=== PATIENT | male | born 1975 | race Caucasian/White ===

== ENCOUNTER → 2017-10-02 10:46 | Outpatient (CLI) | payer OTHER, SELFPAY ==
[2017-10-02 12:02] LABS: AST(SGOT) 22 U/L (15-37); Alanine Aminotransfer ALT/SGPT 40 U/L (16-61); Albumin, Serum 4.3 g/dL (3.2-5.0); Alkaline Phosphatase 56 U/L (45-117); Bilirubin, Direct 0.29 mg/dL (0.00-0.30); Cholesterol 175 mg/dL (200); Globulin 3.3 g/dL (2.2-4.2); High Density Lipoprotein 50 mg/dL; Protein, Total 7.6 g/dL (6.4-8.2); Triglycerides 163 mg/dL; Very Low Density Lipoprotein 33 mg/dL (5-40)
== END ==
PROVIDERS: Physician Assistant Medical; Family Provider Family Medicine; PCP Family Medicine; Visit Provider Internal Medicine Cardiovascular Disease
DX: E78.5 Hyperlipidemia, unspecified (principal); Z79.899 Other long term (current) drug therapy
CPT/HCPCS: 36415; 80061; 80076

== ENCOUNTER 2018-02-04 09:27 | Emergency (ER) | payer OTHER, SELFPAY ==
[2018-02-04 09:28] VITALS: BP 131/95; PULSE 57; RESP 15; TEMP 37.1; O2SAT 99; BMI 29.1
[2018-02-04 10:06] VITALS: O2SAT 99
--- NOTE | 2018-02-04 10:06 | EKG12_ITS ---
Test Reason : CHEST PAIN Blood Pressure : / mmHG Vent. Rate : 056 BPM Atrial Rate : 056 BPM P-R Int : 154 ms QRS Dur : 088 ms QT Int : 414 ms P-R-T Axes : 040 021 026 degrees QTc Int : 399 ms Sinus bradycardia Possible Inferior infarct , age undetermined Abnormal ECG Confirmed by DILAN KINNEY ([id number]), medical transcription editor CARMEN MATA ([id number]) on 02/10/2018 1:43:19 PM Referred By: Confirmed By:DILAN KINNEY
[2018-02-04 10:25] LABS: Absolute Lymphocyte Count 2.28 X10^3/ul (0.83-4.51); Absolute Neutrophil Count 2.4 X10^3/uL (2.0-7.7); Basophil# 0.04 X10^3/uL; Basophil% 0.7 % (0-1); Eosinophil# 0.33 X10^3/uL; Eosinophils% 5.7 % (0-5); Hematocrit 42.8 % (40-54); Hemoglobin 14.9 g/dl (13.0-16.5); Lymphocyte # 2.28 X10^3/ul (4.0); Lymphocyte % 39.6 % (19-41); Mean Corp Hgb Conc 34.8 g/gl (32-36); Mean Corpuscular Hgb 32.1 pg (27.0-32.0); Mean Corpuscular Volume 92.2 fL (80-94); Mean Platelet Vol. 10.4 fl (6.2-12.0); Monocyte# 0.67 X10^3/uL; Monocyte% 11.6 % (0-10); Neutrophil # 2.43 X10^3/uL (2.7-7.7); Neutrophil % 42.2 % (47-70); Platelet Count 189 K/mm3 (150-450); RBC Distribution Width CV 12.5 % (11.6-14.6); RBC Distribution Width SD 42.1 fl (35.1-43.9); Red Blood Count 4.64 M/mm3 (4.6-6.2); White Blood Count 5.8 K/mm3 (4.4-11.0)
[2018-02-04] MEDS: Aspirin 81 MG TAB.CHEW 324 MG PO (10:25)
[2018-02-04 10:26] LABS: POSITIVE COUNT NO; POSITIVE DIFFERENTIAL NO; POSITIVE MORPHOLOGY NO
--- NOTE | 2018-02-04 10:30 | ED.VISSUMM ---
- ER Visit Summary Date of Service: 02/04/18 Chief Complaint: Chest pain History of Present Illness: The patient is a 42 M presenting with chest pain. Patient had intermittent left-sided chest pain yesterday. This morning he woke up with midsternal pain similar to his previous ME. He states the pain is 3/10. He denies nausea, vomiting, diaphoresis, shortness of breath. He has a history of hypertension, hyperlipidemia, family history of early heart disease. He is not a smoker. He had an ME in 2016 with 2 stents placed. Physical Examination: Vitals are stable. Patient is afebrile. Alert no acute distress. HEENT exam is unremarkable. Neck is supple. Lungs are clear and equal bilaterally. Heart is regular rate and rhythm. Abdomen is soft nontender nondistended. Extremities are unremarkable. Skin is warm and dry. No focal neurologic deficit. Remainder of exam is unremarkable. Emergency Department Course and Treatment: Patient was given aspirin on arrival. EKG is sinus rate of 56, unchanged from previous. CBC, chemistries unremarkable other than creatinine 1.3. Troponin is negative. Chest x-ray shows no acute process. On repeat evaluation, patient is resting comfortably. Discussed with Dr. Layton. He recommends repeat troponin and ordering outpatient stress echo for tomorrow if negative. Delta troponin is negative. Outpatient stress test is ordered. He is given instructions for follow-up. Advised to return to the ED for any worsening complaints. Disposition: Discharge home Impression: Chest pain This note was generated with [employer] dictation software. It may contain incorrect words, spelling, and punctuation that were not noted in review of the chart prior to signing ED Disposition - Plan for ED Patient: Chief Complaint: Chest Pain Instructions: ED Chest Pain Atypical Unkn Cause Referrals: Shreyas Partida MD [STAFF PHYSICIAN] - Stevan Reed MD [Primary Care Provider] -
[2018-02-04 10:44] LABS: Anion Gap 8 (5-15); BUN 16 mg/dL (7-18); BUN/Creat Ratio 12.2 RATIO (10-20); Calcium,Total 9.6 mg/dL (8.5-10.1); Chloride 107 mmol/L (98-107); Creatinine, Serum 1.31 mg/dL (0.70-1.30); EST Glomerular Filtration Rate 64 mL/min (>60); Est Glom Filt Rate - Afr Amer 78 mL/min (>60); Estimated Creatinine Clearance 84.71 ml/min; Glucose 109 mg/dL (74-106); Potassium 4.4 mmol/L (3.5-5.1); Sodium Level 141 mmol/L (136-145)
[2018-02-04 11:10] VITALS: BP 121/89; PULSE 44; RESP 17; O2SAT 97
--- NOTE | 2018-02-04 14:00 | ED.DEP ---
ED Disposition - Plan for ED Patient: Chief Complaint: Chest Pain Instructions: ED Chest Pain Atypical Unkn Cause Referrals: Stevan Reed MD [Primary Care Provider] - Shreyas Partida MD [STAFF PHYSICIAN] -
[2018-02-04 14:27] VITALS: BP 107/84; PULSE 48; RESP 17; O2SAT 99
== END 2018-02-04 15:08 | disposition home or self-care (01) ==
LOC: ED 10:01
PROVIDERS: Emergency Provider Emergency Medicine; Family Provider Family Medicine; PCP Family Medicine
DX: R07.9 Chest pain, unspecified (principal); I25.10 Atherosclerotic heart disease of native coronary artery without angina pectoris; I10 Essential (primary) hypertension; E78.5 Hyperlipidemia, unspecified; I25.2 Old myocardial infarction; Z79.82 Long term (current) use of aspirin; Z79.02 Long term (current) use of antithrombotics/antiplatelets; Z79.899 Other long term (current) drug therapy; Z95.5 Presence of coronary angioplasty implant and graft
CPT/HCPCS: 36415; 71045; 80048; 84484; 85025; 93005; 99285; A4216

== ENCOUNTER → 2018-02-05 08:42 | Outpatient (CLI) | payer OTHER, SELFPAY | PROVIDERS: Family Provider Family Medicine; PCP Family Medicine; Visit Provider Emergency Medicine | DX: R07.9 Chest pain, unspecified (principal) | CPT/HCPCS: 93017; 93350 ==

== ENCOUNTER 2018-06-15 06:00 | Day surgery (SDC) | payer OTHER, SELFPAY ==
[2018-06-15] VITALS (7 sets, daily range): BP systolic 94–141; BP diastolic 66–94; PULSE 54–61; RESP 16; TEMP 36.2–36.6; O2SAT 92–95; BMI 29.8
--- NOTE | 2018-06-15 06:09 | EKG12_ITS ---
Test Reason : PREOP Blood Pressure : / mmHG Vent. Rate : 064 BPM Atrial Rate : 064 BPM P-R Int : 166 ms QRS Dur : 084 ms QT Int : 408 ms P-R-T Axes : 027 005 006 degrees QTc Int : 420 ms Normal sinus rhythm Inferior infarct , age undetermined, cannot be excluded Abnormal ECG Confirmed by MARCI PETERS, JN ([id number]), technical writer and editor CARMEN MATA ([id number]) on 06/18/2018 4:23:41 PM Referred By: Matt Morris Confirmed By:JN COVARRUBIAS MD
[2018-06-15 06:36] LABS: Hematocrit 40.5 % (40-54); Mean Corp Hgb Conc 34.6 g/gl (32-36); Mean Corpuscular Hgb 31.5 pg (27.0-32.0); Mean Corpuscular Volume 91.2 fL (80-94); Mean Platelet Vol. 9.9 fl (6.2-12.0); Platelet Count 160 K/mm3 (150-450); RBC Distribution Width CV 12.1 % (11.6-14.6); RBC Distribution Width SD 40.4 fl (35.1-43.9); Red Blood Count 4.44 M/mm3 (4.6-6.2); White Blood Count 4.9 K/mm3 (4.4-11.0)
[2018-06-15 06:48] LABS: Prothrombin Time (Protime)PT. 13.1 SECONDS (11.7-14.9)
[2018-06-15 06:49] LABS: Partial Thromboplast Time 30.8 Seconds (24.1-36.2)
[2018-06-15 06:50] LABS: AST(SGOT) 26 U/L (15-37); Alanine Aminotransfer ALT/SGPT 48 U/L (16-61); Albumin, Serum 3.8 g/dL (3.2-5.0); Alkaline Phosphatase 66 U/L (45-117); Anion Gap 11 (5-15); BUN 14 mg/dL (7-18); BUN/Creat Ratio 14.4 RATIO (10-20); Bilirubin, Direct 0.12 mg/dL (0.00-0.30); Calcium,Total 8.4 mg/dL (8.5-10.1); Chloride 110 mmol/L (98-107); Creatinine, Serum 0.98 mg/dL (0.70-1.30); EST Glomerular Filtration Rate 90 mL/min (>60); Est Glom Filt Rate - Afr Amer 109 mL/min (>60); Estimated Creatinine Clearance 113.24 ml/min; Globulin 3.3 g/dL (2.2-4.2); Glucose 112 mg/dL (74-106); Potassium 3.9 mmol/L (3.5-5.1); Protein, Total 7.1 g/dL (6.4-8.2); Sodium Level 142 mmol/L (136-145)
[2018-06-15 07:09] LABS: Scan Indicated on CBC? Y/N NO
[2018-06-15] MEDS: Cefazolin 2 GM in 0.9% Normal Saline 100 ML IV (07:21)
[2018-06-15] MEDS: Bupivacaine Mpf 0.5% 30 ML VIAL (07:36)
--- NOTE | 2018-06-15 08:41 | OP.PCM_ITS ---
Report of Operation Date of Procedure: 06/15/18 Pre-Operative Diagnosis: left inguinal hernia Post-Operative Diagnosis: left inguinal hernia - indirect Surgery/Procedure Performed:: open left inguinal hernia repair - Stephen's ligament repair with a medium Bard perfix plug - Ref - [id number] Exp 07/2018 Description of Surgical Findings:: as above career portals teacher: None Type of Anesthesia:: Local MAC Anesthesiologist: Vitaliy Valiente ASA3 Specimen's removed: none Estimated Blood Loss (mL): 3 Fluids Replaced: 800 Description of Procedure: The patient was brought to the operating suite. Sign in was performed verifying patient, site, procedure, position, and DVT prophylaxis with SCDs. Patient received 2 g Ancef antibiotic prophylaxis. Following induction of IV sedation, the patient?s left inguinal region was prepped and draped in the usual fashion. Timeout was performed verifying patient, site, position. Local anesthetic was injected at the site of the anterior superior iliac spine for a regional block. The 50-50 mixture of lidocaine and Marcaine was then injected along the planned course of the skin incision. A linear incision was made and dissection carried down to the external oblique aponeurosis. Traversing veins ligated with 3-0 Vicryl ties and divided. Local anesthetic was then injected into the inguinal canal. A clean scalpel blade was used to open the lower canal in the direction of the fibers and a Metzenbaum scissor was used to further dissect and open the canal. Care was taken to avoid injury to the ilioinguinal nerve. Following this, the spermatic cord was surrounded at the level of the pubic tubercle and brought up in the operative field with a [place] drain. Dissection was continued up to the internal ring clearing the cremasteric fibers. The patient was noted to have an indirect inguinal hernia with weak floor. A medium bard mesh plug was placed into the internal ring and secured with O prolene sutures [place] mesh was secured using a Bard keyhole shaped mesh secured at the level of the pubic tubercle and run from Setphen?s ligament transitioning to the ilioinguinal ligament inferiorly using an 0 Prolene suture. Next an 0 Prolene suture was used to secure the mesh to the transversus arch. The tails of the mesh were placed around the spermatic cord to create a new internal ring and the tails closed with a running 0 Prolene suture. The spermatic cord and the ilioinguinal nerve returned to its anatomic position. The external oblique was closed with a running 3-0 Vicryl suture. Subcutaneous fat was closed with interrupted 3-0 Vicryl suture. Skin was closed with a running 4-0 Monocryl subcuticular sutures. Steri-Strips and bandages were applied. The patient was brought to recovery room in stable condition. - Admit VTE Documentation VTE Present on Admission: No VTE Mechan Device Prophylaxis: SCD's VTE Pharm Prophylaxis ordered?: Yes
--- NOTE | 2018-06-15 08:42 | DCINST_ITS ---
Discharge Diet: Light diet - advance as tolerated Discharge Activity: Return to Normal Activity, May Drive - when you are no longer taking narcotic pain medications., May Shower - with the bandage in place 1-2 days after surgery. Lifting Restrictions: 20 pounds for 8 weeks. Additional Activity Instructions:: Climbing stairs is fine, walking is encouraged. Sitting in bed may be uncomfortable. Sitting up using your lateral muscles (sitting up sideways) is usually more comfortable. Do not drive, work heavy equipment of sign legal documents for 24 hours. If your hernia repair was an ingunial repair, you may have scrotal swelling, an ice pack and/or athletic support can provide more comfort. Pain medications may cause nausea, you should typically eat light foods as you take your pain medications. Pain medications may also cause constipation. If you have difficulty with this, discuss with your doctor. Call your doctor if your incision/area has: Continuous Slow Oozing, Sudden Increased Bleeding, Increased Pain/ Swelling, Increased Redness, Foul Smelling Discharge Call your doctor if you observe: Fever of 101 or Higher Suture Line Care: Avoid Pulling/Pushing, Avoid Pinching/Bending Additional Dressing/Incision Instructions:: Leave the operative bandage on for 2-3 days. When you remove the bandage, leave the steri-strips on place until your follow up appointment or they fall off. Allergies/Adverse Reactions: Allergies erythromycin base Allergy (Verified 06/08/18 09:57) Unknown azithromycin Adverse Reaction (Verified 06/08/18 09:57) Chest tightness Medications to take at Discharge Cetirizine HCl [Zyrtec] 10 mg PO DAILY 12/18/15 Aspirin [Aspirin, Baby] 81 mg PO DAILY@0800 09/22/16 Pantoprazole Sodium [Protonix] 40 mg PO DAILY #30 tab 09/23/16 fluoxetine 10 mg capsule 10 mg PO QDAY 05/19/17 nitroglycerin 0.4 mg sublingual tablet 0.4 mg SUBLINGUAL Q5M PRN #1 bottle 05/20/17 atorvastatin 20 mg tablet 20 mg PO QHS #90 tab 05/12/18 metoprolol tartrate 25 mg tablet 12.5 mg PO BID #90 tab 05/12/18 ticagrelor 90 mg tablet 90 mg PO BID #180 tab 05/12/18 Lisinopril [Zestril] 10 mg PO DAILY 06/08/18 Primary Care Physician: Stevan Reed MD [Primary Care Provider] - Test Results: Test results from this visit will be discussed in further detail at your follow- up appointment, if applicable. Please Follow Up With: Matt Morris MD - [phone] When: Plan to have a follow up appointment in 7 days. Call to schedule.
== END 2018-06-15 10:30 | disposition home or self-care (01) ==
LOC: SDC 06:01 → AC 06:02
PROVIDERS: Anesthesiology; Family Provider Family Medicine; PCP Family Medicine; Referring Provider Surgery; Visit Provider Surgery
PROC: (CPT 49505; principal; 2018-06-15 07:15)
DX: K40.90 Unilateral inguinal hernia, without obstruction or gangrene, not specified as recurrent (principal); I25.10 Atherosclerotic heart disease of native coronary artery without angina pectoris; I25.83 Coronary atherosclerosis due to lipid rich plaque; I10 Essential (primary) hypertension; E78.5 Hyperlipidemia, unspecified; K21.9 Gastro-esophageal reflux disease without esophagitis; F32.9 Major depressive disorder, single episode, unspecified; F41.9 Anxiety disorder, unspecified; E66.9 Obesity, unspecified; Z68.29 Body mass index [BMI] 29.0-29.9, adult; Z79.899 Other long term (current) drug therapy; Z79.82 Long term (current) use of aspirin; I25.2 Old myocardial infarction
CPT/HCPCS: 49505; 36415; 80048; 80076; 85027; 85610; 85730; 93005; J7120; C1781

== ENCOUNTER 2020-01-10 07:00 | Emergency (ER) | payer OTHER, SELFPAY ==
[2019-10-21 11:26] VITALS: BMI 28.3
[2020-01-10 07:00] VITALS: BP 161/115; PULSE 61; RESP 16; TEMP 37; O2SAT 100; BMI 30.1
[2020-01-10 07:03] VITALS: BP 165/110
--- NOTE | 2020-01-10 07:12 | CT_ITS ---
STUDY: CT ABDOMEN AND PELVIS WITH CONTRAST REASON FOR EXAM: Male, 44 years old. LLQ PAIN X 3 DAYS RADIATION DOSAGE (If Supplied By Facility): CTDIvol = ( 16.05 ) mGy, DLP = ( 1011.72 ) mGycm TECHNIQUE: Transaxial images were obtained from the dome of the diaphragm to the symphysis pubis without oral contrast. IV 100mL Isovue-300 was administered. Sagittal and coronal images were reconstructed. Individualized dose optimization techniques were used for this CT. COMPARISON: Comparison is made with prior study dated 02/25/2016. FINDINGS: The visualized lung bases are unremarkable. Coronary artery calcification. There is decreased attenuation of the liver consistent with steatosis. Normal gallbladder and extrahepatic biliary system. Normal spleen. Normal pancreas. Normal bilateral adrenal glands. Normal right kidney. Normal left kidney. Normal visualized stomach. Normal small intestine. There is diverticulosis, with thickening of the descending colon wall, and pericolonic inflammation changes consistent with acute diverticulitis. Sigmoid diverticulosis. The appendix is visualized and appears normal. Normal abdominal aorta. Normal inferior vena cava. There is borderline retroperitoneal lymphadenopathy with enlarged nodes no greater than 10mm in the short axis diameter. Normal urinary bladder. There is a right-sided inguinal hernia containing adipose tissue. Normal osseous structures. CT/Abdomen/Pelvis W IV Cont ONLY IMPRESSION: Findings in keeping with diverticulitis of the descending colon with the pericolonic inflammatory changes. Electronically Signed: Azar To, at 8:16 EDT , Service support ,
--- NOTE | 2020-01-10 07:12 | ED.DCSUM_ITS ---
History of Present Illness Chief Complaint: Abd Pain Informant: Patient Narrative: Patient states that on Friday he began to have pressure gas-like sensation left lower quadrant of his abdomen. He states he got progressively worse. He denies any urinary symptoms. He denies any fevers. He states that he did not sleep at all last night. He reports his bowel movements are formed but softer than normal. He states that about 4 years ago he was diagnosed with diverticulitis and this feels similar. He denies any black or bloody stool. No testicular pain. He has had water today last solid food was potato chips around 2230 hours. No history of bowel obstruction. He has had prior hernia repair with Dr. Mayen. Past Medical History - Allergies and Home Meds Allergies/Adverse Reactions: Allergies erythromycin base Allergy (Verified 01/10/20 07:06) Unknown Primary Care Physician: Stevan Reed MD [Primary Care Provider] - 1 Week Surgical History: no surgical history, - Smoking Status: Never smoker - Family History Maternal Family History: Family History (Last Reviewed 10/21/19 @ 11:[address] Shreyas Partida MD) Father Atrial fibrillation Mother Hyperlipidemia Family History: Reports: - - History of coronary artery disease on the mother's side Paternal Family History: Family History (Last Reviewed 10/21/19 @ 11:[address] Shreyas Partida MD) Father Atrial fibrillation Mother Hyperlipidemia Family History: Reports: No pertinent history Review of Systems General: Denies: Chills, Fever, Sweats Eyes: Denies: Visual changes - bilaterally, Diplopia ENT: Denies: Rhinorrhea, Sore throat Cardiovascular: Denies: Chest pain, Palpitations Respiratory: Denies: Dyspnea, Cough, Dyspnea on exertion Gastrointestinal: Reports: Abdominal pain, Nausea. Denies: Vomiting, Diarrhea, Melena, Hematochezia Genitourinary: Denies: Dysuria, Hematuria, Frequency Musculoskeletal: Denies: Back pain, Extremity Pain Skin: Denies: Rash, Wounds Neurological: Denies: Headache, Weakness, Numbness Physical Exam Vital Signs/Narrative: Vital Signs Temp Pulse Resp BP Pulse Ox 01/10/20 07:03 165/110 H 01/10/20 07:00 98.6 F 61 16 161/115 H 100 Inital Vital Signs reviewed: Yes General: Well nourished, Well developed, No Acute Distress Head: Normocephalic, Atraumatic Eyes: Perrl, EOMI ENT: Moist mucous membranes, No rhinorrhea Neck: Supple, Nontender Cardiovascular: Regular rate, Regular rhythm, No murmurs Respiratory: No distress, CTA bilaterally, Chest nontender Abdomen: Soft, Nondistended, Normal bowel sounds, Tender, Guarding Back: Nontender, Normal Inspection Extremities: Nontender, No edema Skin: Normal color, No rash Neurological: Alert, Oriented x3, Cranial nerves II-XII grossly intact, Normal Strength, Normal Sensation Psychological: Normal affect, Normal Mood Diagnostic/Tx/Re-eval Clinical Impression(s) from Imaging Studies Abdomen/Pelvis CT 01/10/20 07:12 IMPRESSION: Findings in keeping with diverticulitis of the descending colon with the pericolonic inflammatory changes. Electronically Signed: Azar Zuleika, at 8:16 EDT , Service support , Laboratory Last Values WBC 9.0 K/mm3 (4.4-11.0) 01/10/20 07:15 RBC 4.73 M/mm3 (4.6-6.2) 01/10/20 07:15 Hgb 15.1 g/dL (13.0-16.5) 01/10/20 07:15 Hct 43.5 % (40-54) 01/10/20 07:15 MCV 92.0 fL (80-94) 01/10/20 07:15 MCH 31.9 pg (27.0-32.0) 01/10/20 07:15 MCHC 34.7 g/dL (32-36) 01/10/20 07:15 RDW Std Deviation 39.8 fl (35.1-43.9) 01/10/20 07:15 RDW Coeff of Vivian 11.9 % (11.6-14.6) 01/10/20 07:15 Plt Count 187 K/mm3 (150-450) 01/10/20 07:15 MPV 9.9 fl (6.2-12.0) 01/10/20 07:15 Immature Gran % (Auto) 0.300 % (0.0-0.9) 01/10/20 07:15 Neut % (Auto) 63.1 % (47-70) 01/10/20 07:15 Lymph % (Auto) 21.8 % (19-41) 01/10/20 07:15 [place] % (Auto) 11.1 % (0-10) H 01/10/20 07:15 Eos % (Auto) 3.0 % (0-5) 01/10/20 07:15 Baso % (Auto) 0.7 % (0-1) 01/10/20 07:15 Absolute Neuts (auto) 5.7 X10^3/uL (2.0-7.7) 01/10/20 07:15 Absolute Lymphs (auto) 1.96 X10^3/uL (0.83-4.51) 01/10/20 07:15 Nucleated RBC % 0 % (0-5) 01/10/20 07:15 Sodium 141 mmol/L (136-145) 01/10/20 07:15 Potassium 4.0 mmol/L (3.5-5.1) 01/10/20 07:15 Chloride 106 mmol/L (98-107) 01/10/20 07:15 Carbon Dioxide 26.0 mmol/L (21.0-32.0) 01/10/20 07:15 Anion Gap 9 (5-15) 01/10/20 07:15 BUN 13 mg/dL (7-18) 01/10/20 07:15 Creatinine 1.15 mg/dL (0.70-1.30) 01/10/20 07:15 Estim Creat Clear Calc 94.57 ml/min 01/10/20 07:15 Est GFR (MDRD) Af Amer 90 mL/min (>60) 01/10/20 07:15 Est GFR (MDRD) Non-Af 74 mL/min (>60) 01/10/20 07:15 BUN/Creatinine Ratio 11.3 RATIO (-20) 01/10/20 07:15 Glucose 104 mg/dL (74-106) 01/10/20 07:15 Calcium 9.4 mg/dL (8.5-10.1) 01/10/20 07:15 Total Bilirubin 0.70 mg/dL (0.20-1.00) 01/10/20 07:15 AST 25 U/L (15-37) 01/10/20 07:15 ALT 52 U/L (16-61) 01/10/20 07:15 Alkaline Phosphatase 75 U/L (45-117) 01/10/20 07:15 Total Protein 7.7 g/dL (6.4-8.2) 01/10/20 07:15 Albumin 4.1 g/dL (3.2-5.0) 01/10/20 07:15 Globulin 3.6 g/dL (2.2-4.2) 01/10/20 07:15 Albumin/Globulin Ratio 1.1 RATIO (0.9-2.4) 01/10/20 07:15 - Medical Decision Making Patient refused IV medication and nausea medicines. He did receive IV fluids. Basic labs were negative and CT demonstrates diverticulitis of the descending colon. There is no evidence of perforation or abscess. Patient was started on Augmentin I will write prescriptions for that and [place] and Zofran. He is to follow-up with primary care in 1 week. I encouraged him to get a colonoscopy when this episode is resolved as he has not had one before and this is the second episode of diverticulitis ED Disposition - Plan for ED Patient: Disposition: Home or Assisted Living Diagnosis: Diverticulitis large intestine Instructions: ED Diverticulitis Prescriptions: Amox/Clavulanate Tablet [Augmentin Tablet] 875 mg PO Q12H #20 tab Prescription Printed Hydrocodone Bitart/Apap 5-325 [[place] 5MG-325MG] 1 tab PO Q6H PRN PRN 3 Days #12 tab PRN Reason: Pain Prescription Printed Ondansetron [Zofran Odt] 4 mg PO Q8H PRN PRN #14 tab PRN Reason: Nausea Prescription Printed Referrals: Stevan Reed MD [Primary Care Provider] - 1 Week
[2020-01-10 07:21] LABS: Absolute Lymphocyte Count 1.96 X10^3/uL (0.83-4.51); Absolute Neutrophil Count 5.7 X10^3/uL (2.0-7.7); Basophil# 0.06 X10^3/uL; Basophil% 0.7 % (0-1); Eosinophil# 0.27 X10^3/uL; Hematocrit 43.5 % (40-54); Hemoglobin 15.1 g/dL (13.0-16.5); Lymphocyte # 1.96 X10^3/ul (4.0); Lymphocyte % 21.8 % (19-41); Mean Corp Hgb Conc 34.7 g/dL (32-36); Mean Corpuscular Hgb 31.9 pg (27.0-32.0); Mean Platelet Vol. 9.9 fl (6.2-12.0); Monocyte% 11.1 % (0-10); NRBC Flagged by Analyzer 0 % (0-5); Neutrophil # 5.69 X10^3/uL (2.7-7.7); Neutrophil % 63.1 % (47-70); Platelet Count 187 K/mm3 (150-450); RBC Distribution Width CV 11.9 % (11.6-14.6); RBC Distribution Width SD 39.8 fl (35.1-43.9); Red Blood Count 4.73 M/mm3 (4.6-6.2)
[2020-01-10] MEDS: 0.9% Normal Saline 1,000 ML 1000 ML IV (07:32)
[2020-01-10 07:36] LABS: ALB/GLOB Ratio 1.1 RATIO (0.9-2.4); AST(SGOT) 25 U/L (15-37); Alanine Aminotransfer ALT/SGPT 52 U/L (16-61); Albumin, Serum 4.1 g/dL (3.2-5.0); Alkaline Phosphatase 75 U/L (45-117); Anion Gap 9 (5-15); BUN 13 mg/dL (7-18); BUN/Creat Ratio 11.3 RATIO (10-20); Calcium,Total 9.4 mg/dL (8.5-10.1); Chloride 106 mmol/L (98-107); Creatinine, Serum 1.15 mg/dL (0.70-1.30); EST Glomerular Filtration Rate 74 mL/min (>60); Est Glom Filt Rate - Afr Amer 90 mL/min (>60); Estimated Creatinine Clearance 94.57 ml/min; Globulin 3.6 g/dL (2.2-4.2); Glucose 104 mg/dL (74-106); Protein, Total 7.7 g/dL (6.4-8.2); Sodium Level 141 mmol/L (136-145)
[2020-01-10 08:48] LABS: Bacteria 0 SEEN /hpf (None Seen); Mucous, Urine 0 SEEN /hpf (<or=2+); Red Blood Cells-Urine 0 SEEN /hpf (0-5); Squamous Epithelial Cells - UA 0 SEEN /hpf (0-5); White Blood Cells 0 SEEN /hpf (0-5)
[2020-01-10 08:49] LABS: Color, Urine Straw (Yellow); Glucose, Dipstick Normal (Normal); Ketone-Dipstick Negative (Negative); Leukocyte Esterase-Dipstick Negative /ul (Negative); Nitrite-Dipstick Negative (Negative); Occult Blood-Urine Negative /ul (Negative); Protein-Dipstick Negative (Negative); Specific Gravity, Urine 1.005 (1.002-1.030); Urine Bilirubin Dipstick Negative (Negative); Urine Clarity Clear (Clear); Urine Urobilinogen Normal (Normal)
[2020-01-10 10:12] VITALS: BP 146/92; PULSE 72; RESP 18; TEMP 35
== END 2020-01-10 10:13 | disposition home or self-care (01) ==
PROVIDERS: Emergency Provider Emergency Medicine; PCP Family Medicine
DX: K57.32 Diverticulitis of large intestine without perforation or abscess without bleeding (principal)
CPT/HCPCS: 74177; 80053; 81001; 85025; 96361; 96374; 96375; 99283; J7030; Q9967; A4216; J2405

== ENCOUNTER → 2020-06-19 11:35 | Outpatient (CLI) | payer OTHER, SELFPAY ==
[2020-06-19 12:37] LABS: AST(SGOT) 23 U/L (15-37); Alanine Aminotransfer ALT/SGPT 51 U/L (16-61); Albumin, Serum 3.8 g/dL (3.2-5.0); Alkaline Phosphatase 73 U/L (45-117); Bilirubin, Direct 0.19 mg/dL (0.00-0.30); Cholesterol 162 mg/dL (200); Globulin 3.5 g/dL (2.2-4.2); High Density Lipoprotein 43 mg/dL; Protein, Total 7.3 g/dL (6.4-8.2); Triglycerides 253 mg/dL; Very Low Density Lipoprotein 51 mg/dL (5-40)
== END ==
PROVIDERS: PCP Family Medicine; Referring Provider Internal Medicine Cardiovascular Disease; Visit Provider Internal Medicine Cardiovascular Disease
DX: E78.00 Pure hypercholesterolemia, unspecified (principal)
CPT/HCPCS: 36415; 80061; 80076

== ENCOUNTER → 2021-12-19 | Outpatient (CLI) | payer OTHER, SELFPAY ==
--- NOTE | 2021-12-19 18:37 | STRESSREP ---
Stress Test Report Exercise stress myocardial perfusion test. 46-year-old male with a history of coronary disease. Stress protocol: Resting KG demonstrates normal sinus rhythm with a rate of 61 bpm normal intervals are noted resting blood pressure is 128/84 mmHg. The patient exercised according to the regular Rj protocol for total duration of 10 minutes and 29 seconds. Patient completed 1 minute and 29 seconds into stage IV of the Rj protocol. The maximum heart rate attained was 1 and 62 bpm which was 92% of max impacted heart rate the maximum workload was 13.4 metabolic equivalents. At rest there were no ST or T wave changes noted to suggest ischemia and at peak exercise upsloping ST changes were noted with did not meet the criteria for ischemia. No clinical angina was noted the test was terminated due to the target heart rate being achieved. No chest pain was noted. The peak blood pressure was 176/70 mmHg. Myocardial perfusion protocol. 14.8 mCi of technetium 99m sestamibi was injected at rest. The patient exercised according to regular Jr protocol for total duration of 10-1/2 minutes and at peak exercise 44.5 mCi of technetium 99m sestamibi was injected stress images were obtained stress and rest images were reconstructed in comparing the short axis vertical long and horizontal long axis. Gated images were also obtained to Perfusion SPECT analysis: Review of the stress images demonstrate normal uptake of tracer noted in the septum anterior wall and part of the lateral wall. There is a perfusion defect noted in the inferior lateral wall which is present on the stress and resting images to a similar extent. The above is suggestive of a previous inferolateral infarct. No obvious ischemia though a small amount of philip-infarct ischemia cannot be completely excluded. Gated SPECT analysis: The gated ejection fraction is noted to be 61%. Conclusion: Exercise myocardial perfusion stress test with no significant ischemia noted at a high workload. Good functional aerobic capacity. Inferolateral infarct with minimal philip-infarct ischemia present.
== END | disposition home or self-care (01) ==
PROVIDERS: PCP Family Medicine; Referring Provider Physician Assistant Medical; Visit Provider Physician Assistant Medical
DX: I25.10 Atherosclerotic heart disease of native coronary artery without angina pectoris (principal); I10 Essential (primary) hypertension; E78.00 Pure hypercholesterolemia, unspecified; Z95.5 Presence of coronary angioplasty implant and graft
CPT/HCPCS: 78452; 93017; A9500; A4216

== ENCOUNTER → 2025-03-18 | Outpatient (CLI) | payer OTHER, SELFPAY ==
--- OUTSIDE RECORDS SUMMARY | 2025-03-18 06:48 | XMS RPT_ITS | CCD ---
Author Organization [facility] Care Team Providers Care Information Systems Supervisor Name Role Phone StasEsthela Briseida Unavailable Unavailable DELIA Ramos, Amarilys Buchanan Unavailable Sabrina Obando LPN Unavailable Unavailab Yaima Raygoza Unavailable Vernon R&D ENGINEER, Justin Simms Unavailable Julissa RN, Kourtney A Unavailable Unavailable Yaima Wolfe Unavailable Sabrina Obando LPN Unavailable Unavailab Stevan Garland MD Primary Care Provider Dr. Stevan Bridges Primary Care Provider Dr. Stevan Bridges Referring Provider FREDERIC Lindquist Attending Provider FREDERIC Lindquist Referring Provider FREDERIC Lindquist Other Provider Dr. Shreyas Partida Attending Provider Stevan Bridges MD Primary Care Provider Stevan Bridges MD Primary Care Provider Stevan Bridges MD Primary Care Provider Stevan Bridges MD Primary Care Provider Leticia Prasad PA-C Unavailable Stevan Bridges MD Primary Care Provider Ashley SURGICAL GARMENT ASSEMBLER.Zoey HOLMAN Unavailable Leticia Prasad PA-C Unavailable Brianna PETERS, Dr. Calles Primary Care Physician Dr. Stevan Bridges MD Referring Provider Monica Joel Attending Physician VIKTORIA NICHOLS Referring Unavailable STEVAN BRIDGES Primary Care Unavailable STEVAN BRIDGES Primary Care Unavailable LETICIA PRASAD Attending Unavailable STEVAN BRIDGES Primary Care Unavailable LETICIA PRASAD Referring Unavailable VIKTORIA NICHOLS Attending Unavailable STEVAN BRIDGES Primary Care Unavailable Monica Lombardi NP Attending Unavailable Stevan Bridges Primary Care Unavailable Stevan Bridges Referring Unavailable Monica Lombardi NP Referring Unavailable Stevan Bridges Primary Care Unavailable Monica Lombardi NP Attending Unavailable Allergies Allergy Classification Reported Allergen(s) Allergy Type Date of Onset Reaction(s) Facility (5 sources) EPINEPHrine drug allergy 7 [facility] Work Phone: (8 sources) NKDA; Translations: [NKDA] allergy to substance 7 None [facility] Work Phone: (20 sources) Azithromycin; Translations: [AZITHROMYCIN] Drug Allergy 8 Shortness of Breath [facility] Work Phone: (20 sources) Erythromycin; Translations: [ERYTHROMYCIN] Drug Allergy 6 GI Upset [facility] Work Phone: (1 source) Erythromycin Drug Allergy 5 [facility] Repository Medications Current Medications Medication Drug Class(es) Dates Sig (Normalized) Sig (Original) allopurinol 100 mg oral tablet (1 source) Xanthine Oxidase Inhibitor Start: 02-28-2025 take 1 tablet by mouth once daily aspirin 81 mg chewable tablet (20 sources) Nonsteroidal Anti-inflammatory Drug Start: 09-22-2016 take 1 tablet by mouth once daily Start: 05-22-2016 take 1 tablet by nafisa th once daily aspirin, enteric coated (ASPIR-81) 81 mg EC tablet Take 1 tablet by mouth once daily. 0 06/13/2016 Active Comment on above: Take 1 tablet by nafisa th once daily. atorvastatin 20 mg oral tablet (20 sources) HMG-CoA Reductase Inhibitor Start: take 1 tablet by mouth once daily atorvastatin (LIPITOR) 40 mg tablet Take 1 tablet by mouth once daily. 90 tablet 1 05/12/2023 Active Start: 01-10-2023 End: 02-28-2025 take 2 tablets by mouth at bedtime Start: 06-13-2021 End: 05-10-2023 take 1 tablet by mouth once daily atorvastatin (LIPITOR) 40 mg tablet Take 1 tablet by mouth once daily. 90 tablet 1 08/22/2022 05/10/2023 Discontinued Start: 05-17-2016 End: 01-10-2023 take 1 tablet by mouth at bedtime Atorvastatin 20 mg tablet Discontinued 20 mg PO AT BEDTIME 90 3 March 26, 2021 8:33am January 10, 2023 9:03am Comment on above: Take 1 tablet by nafisa th once daily. For cholesterol. TAKE 1 TABLET ONCE D AILY FOR CHOLESTEROL. Take 1 tablet by nafisa th once daily. cetirizine hydrochloride 10 mg oral capsule (20 sources) Histamine-1 Receptor Antagonist Start: 12-18-2015 take 1 capsule by mouth once daily Start: 09-28-2015 take 1 tablet by nafisa th once daily cetirizine (ZYRTEC) 10 mg tablet Indications: Seasonal allergies Take 1 tablet by mouth once daily. 90 tablet 3 09/28/2015 Active Comment on above: Take 1 tablet by nafisa th once daily. clopidogrel 75 mg oral tablet (2 sources) P2Y12 Platelet Inhibitor Start: 02-28-2025 End: 02-28-2025 take 1 tablet by mouth once daily CPAP/BIPAP/OTHER (10 sources) Start: 03-31-2023 End: 08-15-2050 CPAP/BIPAP/OTHER Indications: JEFF (obstructive sleep apnea) Type .CPAPSettings into a note to see current settings/supplies /DME information. 1 Each 03/31/2023 08/15/2050 Active Start: 03-31-2023 End: 08-15-2050 CPAP/BIPAP/OTHER Indications : JEFF (obstructive sleep apnea) Type .CPAPSettings into a note to see current settings/supplies/DME information. 1 Each 0 03/31/2023 08/15/2050 Active Comment on above: Type .CPAPSettings i nto a note to see current settings/supplies/DME information. febuxostat 40 mg oral tablet (20 sources) Xanthine Oxidase Inhibitor Start: 020 End: 025 febuxostat (ULORIC) 40 mg tab Indications: Chronic gout of multiple sites, unspecified cause take 1 tablet once daily 90 tablet 11/06/2023 Active Comment on above: Take 1 tablet by nafisa th once daily. TAKE 1 TABLET ONCE D AILY FLUoxetine 10 mg oral capsule (20 sources) Serotonin Reuptake Inhibitor Start: 017 End: 024 take 1 capsule by mouth once daily Start: 05-22-2016 take 1 tablet by nafisa th once daily FLUOXETINE HCL 10 MG TABS One tablet by mouth daily FLUOXETINE HCL [id number] Kourtney Costa RN Start: 12-03-2015 End: 05-19-2017 take 10 mg by mouth once daily Fluoxetine 20 MG capsul e Discontinued 10 mg PO DAILY December 03, 2015 12:00am May 19, 2017 9:44pm Start: 12-03-2015 End: 05-19-2017 take 10 mg by mouth once daily Fluoxetine Discontinued 10 MG PO DAILY December 03, 2015 12:00am May 19, 2017 9:44pm Comment on above: Take 1 capsule by mo [facility] once daily. lisinopril 5 mg oral tablet (20 sources) Angiotensin Converting Enzyme Inhibitor Start: 11-29-2021 End: 02-28-2025 Start: 10-22-2018 End: 11-29-2021 take 1 tablet by mouth once daily Lisinopril 2.5 mg tablet Discontinued 2.5 mg PO DAILY 90 3 March 26, 2021 8:33am November 29, 2021 11:01am Start: 06-08-2018 End: 10-22-2018 take 4 tablets by mouth once daily Lisinopril 2.5 MG tablet Discontinued 10 mg PO DAILY June 08, 2018 10:59am October 22, 2018 11:56am Start: 06-08-2018 End: 10-22-2018 take 10 mg by mouth once daily Lisinopril Discontinued 10 MG PO DAILY June 08, 2018 10:59am October 22, 2018 11:56am Start: 02-04-2018 End: 06-08-2018 take 1 tablet by mouth once daily Lisinopril 2.5 mg tablet Discontinued 2.5 mg PO DAILY May 12, 2018 12:35pm June 08, 2018 10:59am Start: 05-17-2016 End: 05-19-2017 take 1 tablet by mouth once daily Lisinopril 2.5 MG tablet Discontinued 2.5 mg PO DAILY September 22, 2016 4:53pm May 19, 2017 9:45pm Start: 12-03-2015 End: 05-17-2016 take 1 tablet by mouth once daily Lisinopril 10 MG tablet Discontinued 10 mg PO DAILY May 15, 2016 1:00am May 17, 2016 8:48am Comment on above: Take 1 tablet by nafisa once daily. metoprolol tartrate 25 mg or al tablet (20 sources) beta-Adrenergic Mihir Start: 11-08-2022 End: 02-28-2025 Start: 11-29-2021 End: 01-16-2022 metoprolol tartrate, short a cting, (LOPRESSOR) 25 mg tablet Start: 06-13-2016 take 0.5 tablet by m outh once daily metoprolol succinate ER (TOPROL XL) 25 mg 24 hr tablet Take 0.5 tablets by mouth once daily. 0 06/13/2016 Active Start: 05-22-2016 take 0.5 tablet by m outh twice daily METOPROLOL TARTRATE 25 MG TABS 1/2 tablet by mouth twice daily METOPROLOL TARTRATE [id number] Shreyas Partida MD Start: 05-17-2016 End: 11-08-2022 Metoprolol Tartrate 25 mg ta blet Discontinued 12.5 mg PO TWICE A DAY November 29, 2021 11:01am November 08, 2022 8:43am Start: 05-17-2016 End: 11-29-2021 take 12.5 mg by mouth twice daily Metoprolol Tartrate Active 12.5 MG PO TWICE A DAY November 29, 2021 11:01am Comment on above: Take 0.5 tablets by mouth once daily. predniSONE 5 mg oral tablet (1 source) Start: 07-12-2022 End: 07-24-2022 take 6 tablets by mouth once daily, then take 4 tablets by mouth once daily, then take 2 tablets by mouth once daily, then take 1 tablet by mouth once daily predniSONE (DELTASONE) 5 mg tablet Take 6 tablets by mouth once daily for 3 days, THEN 4 tablets once daily for 3 days, THEN 2 tablets once daily for 3 days, THEN 1 tablet once daily for 3 days. 39 tablet 0 07/12/2022 07/24/2022 Active Comment on above: Take 6 tablets by mo uth once daily for 3 days, THEN 4 tablets once daily for 3 days, THEN 2 tablets once daily for 3 days, THEN 1 tablet once daily for 3 days. sour monsalve allergenic extract (20 sources) Non-Standardized Food Allergenic Extract, Non-Standardized Plant Allergenic Extract take 1200 mg by mouth twice daily sour monsalve extract (TART MONSALVE EXTRACT ORAL) Take 1,200 mg by mouth twice daily. Active take 1200 mg by mouth twice marciano y sour monsalve extract (TART MONSALVE EXTRACT ORAL) Take 1,200 mg by mouth twice daily. 0 Active Comment on above: Take 1,200 mg by nafisa twice daily. Completed/Discontinued Medications Medication Drug Class(es) Dates Sig (Normalized) Sig (Original) acetaminophen 325 mg / HYDROcodone bitartrate 5 mg oral tablet (2 sources) Opioid Agonist Start: 01-10-2020 End: 01-13-2020 Hydrocodone-Acetamino phen 1 TABLET tablet Discontinued 1 {tbl} PO EVERY 6 HOURS NEEDED as needed for Pain 12 3 0 January 10, 2020 January 12, 2020 12:00am January 13, 2020 12:02am Diverticulitis Start: 01-10-2020 End: 01-13-2020 take 1 tablet by mouth every six hours as needed Hydrocodone-Acetaminophen Discontinued 1 TABLET PO EVERY 6 HOURS NEEDED 12 3 January 10, 2020 January 13, 2020 12:02am acetaminophen 325 mg / oxyCODONE hydrochloride 5 mg oral tablet (2 sources) Opioid Agonist Start: 06-15-2018 End: 06-22-2018 Oxycodone-Acetaminophen 1 TABLET tablet Discontinued 1 {tbl} PO EVERY 6 HOURS NEEDED as needed for Pain 12 7 June 15, 2018 1:00am June 21, 2018 1:00am June 22, 2018 1:10am Inguinal hernia Start: 06-15-2018 End: 06-22-2018 take 1 tablet by mouth every six hours as needed Oxycodone-Acetaminophen Discontinued 1 TABLET PO EVERY 6 HOURS NEEDED 12 7 June 15, 2018 1:00am June 22, 2018 1:10am [id number] 200 actuat albuterol 0.09 mg/actuat metered dose inhaler (2 sources) beta2-Adrenergic Agonist Start: 10-21-2019 End: 02-28-2025 Albuterol Sulfate 90 mcg/actuation HFA aerosol inhaler Discontinued 2 NMA INHALATION EVERY 6 HOURS as needed for Shortness Of Breath October 21, 2019 12:00am February 28, 2025 1:37pm Start: 10-21-2019 Albuterol Sulf ate Active 2 INH INHALATION EVERY 6 HOURS October 21, 2019 12:00am amoxicillin 875 mg / clavulanate 125 mg oral tablet (2 sources) Penicillin-class Antibacterial Start: 01-10-2020 End: 10-26-2020 take 1 tablet by mouth every twelve hours Amoxicillin-Pot Clavulanate 875 MG tablet Discontinued 875 mg PO Q12H 20 0 January 10, 2020 12:00am October 26, 2020 11:32am colchicine 0.6 mg oral tablet (20 sources) Start: 08-19-2022 End: 08-01-2023 colchicine 0.6 mg tablet Indications: Chronic gout of multiple sites, unspecified cause TAKE 1 TABLET EVERY 48-72 HOURS 30 tablet 1 08/19/2022 08/01/2023 Discontinued (Discontinued by another Health Care Provider) Start: 03-20-2022 End: 08-17-2022 colchicine 0.6 mg tablet Indications: Chronic gout of multiple sites, unspecified cause TAKE 1 TABLET EVERY 48-72 HOURS 30 tablet 1 06/12/2022 08/17/2022 Discontinued Start: 06-04-2021 End: 03-16-2022 colchicine 0.6 mg tablet Indications: Chronic gout of multiple sites, unspecified cause TAKE 1 TABLET EVERY 48-72 HOURS 30 tablet 1 06/04/2021 03/16/2022 Discontinued Start: 10-21-2019 End: 02-28-2025 take 1 tablet by mouth every other day Colchicine 0.6 mg tablet Discontinued 0.6 mg PO .QOD October 21, 2019 12:00am February 28, 2025 1:37pm Gout, unspecified Comment on above: TAKE 1 TABLET EVERY 48-72 HOURS diphenhydrAMINE hydrochloride 25 mg oral tablet (16 sources) Histamine-1 Receptor Antagonist Start: 05-22-20 16 End: 01-11-20 17 take 1-2 tablets by mouth at bedtime as needed BENADRYL 25 MG TABS 1-2 tablets by mouth at bedtime prn DIPHENHYDRAMINE HCL [id number] Justin Simms [place] R&D ENGINEER Start: 05-22-2016 End: 01-10-2017 take 1-2 tablets by mouth at bedtime as needed BENADRYL 25 MG TABS 1-2 tablets by mouth at bedtime prn DIPHENHYDRAMINE HCL Justin Simms [place] R&D ENGINEER ibuprofen 600 mg oral tablet (20 sources) Nonsteroidal Anti-inflammatory Drug Start: 09-23-2016 End: 05-19-2017 take 1 tablet by mouth three times daily Ibuprofen 600 MG tablet Discontinued 600 mg PO THREE TIMES A DAY September 23, 2016 12:00am May 19, 2017 9:45pm Start: 03-19-2006 IBUPROFEN 200 MG CAP take 2-3 as needed 0 03/19/2006 Active Comment on above: take 2-3 as needed 24 hr isosorbide mononitrate 30 mg extended release oral tablet (16 sources) Start: 2016 End: 2016 take 1 tablet by mouth once daily ISOSORBIDE MONONITRATE ER 30 MG [id number] One tablet by mouth daily (Imdur) ISOSORBIDE MONONITRATE [id number] Lata Rose, TYRONE levoFLOXacin 500 mg oral tablet (2 sources) Quinolone Antimicrobial Start: 2015 End: 2016 take 1 tablet by mouth once daily Levofloxacin (Levaquin) 500 MG tablet Discontinued 500 mg PO DAILY 7 May 27, 2016 1:00am June 10, 2016 3:24pm methylPREDNISolone 4 mg oral tablet (20 sources) Corticosteroid Start: 2021 methylPREDNISolone (MEDROL, MARK,) 4 mg Dose-Pack Take 1 tablet by mouth as directed. As directed on package 1 Package 0 08/24/2021 Active Start: 05-22-2016 End: 05-30-2016 MEDROL 4 MG TBPK Take as dir ected on package METHYLPREDNISOLONE [id number] Amarilys Ramos PA-C Start: 05-22-2016 MEDROL 4 MG TB PK Take as directed on package METHYLPREDNISOLONE [id number] Salvador Layton MD Start: 05-22-2016 End: 06-10-2016 take 1 tablet by mouth once daily Methylprednisolone (Medrol (Mark)) 4 MG Tab.Ds.Pk Discontinued 4 mg PO DAILY May 26, 2016 1:00am June 10, 2016 2:58pm Start: 05-22-2016 End: 05-30-2016 MEDROL 4 MG TBPK Take as dir ected on package METHYLPREDNISOLONE [id number] Amarilys Ramos PA-C Start: 05-22-2016 MEDROL 4 MG TB PK Take as directed on package METHYLPREDNISOLONE [id number] Salvador Layton MD Comment on above: Take 1 tablet by nafisa th as directed. As directed on package metroNIDAZOLE 500 mg oral tablet (2 sources) Nitroimidazole Antimicrobial Start: 05-27-20 End: 06-10-19 17 take 1 tablet by mouth every eight hours Metronidazole 500 MG tablet Discontinued 500 mg PO Q8H May 27, 2016 1:00am June 10, 2016 2:57pm nitroglycerin 0.4 mg sublingual tablet (12 sources) Nitrate Vasodilator Start: 01-11-20 17 NITROGLYCERIN 0.4 MG/HR PT24 1 tablet under tongue every 5 min up to 3 X NITROGLYCERIN [id number] Justin Junior R&D ENGINEER Start: 05-19-2016 End: 02-28-2025 Nitroglycerin 0.4 MG tablet Discontinued 0.4 mg SL Q5M as needed for Chest Pain 1 0 May 20, 2017 4:57pm February 28, 2025 2:12pm Start: 05-19-2016 End: 05-20-2017 Nitroglycerin Active 0.4 MG SL Q5M May 20, 2017 4:57pm omeprazole 20 mg delayed release oral capsule (10 sources) Proton Pump Inhibitor Start: 12-03-2015 End: 05-20-2017 take 1 capsule by mouth once daily Omeprazole 20 MG capsule Discontinued 20 mg PO DAILY December 03, 2015 12:00am May 20, 2017 4:42pm ondansetron 4 mg disintegrating oral tablet (2 sources) Serotonin-3 Receptor Antagonist Start: 01-10-2020 End: 10-26-2020 take 1 tablet by mouth every eight hours as needed for nausea Ondansetron 4 MG tablet Discontinued 4 mg PO EVERY 8 HOURS NEEDED as needed for Nausea January 10, 2020 12:00am October 26, 2020 11:32am pantoprazole 40 mg delayed release oral tablet (20 sources) Proton Pump Inhibitor Start: 05-22-2016 End: 10-30-2022 take 1 tablet by mouth once daily Pantoprazole 40 MG tablet Discontinued 40 mg PO DAILY September 23, 2016 12:00am October 21, 2019 11:21am Start: 05-22-2016 take 1 tablet by nafisa th once daily PROTONIX 40 MG TBEC One tablet by mouth daily PANTOPRAZOLE SODIUM [id number] Shreyas Partida MD Comment on above: TAKE 1 TABLET DAILY BEFORE BREAKFAST. TAKE ON EMPTY STOMACH, ONE HALF HOUR BEFORE A MEAL selenium sulfide 23 mg/ml medicated shampoo (3 sources) Start: 06-13-2021 selenium sulfide 2.3 % sham lather for 10min and rinse nightly for 7-10 days - or apply for 24hrs weekly for several months 0 06/13/2021 Active Comment on above: lather for 10min and rinse nightly for 7-10 days - or apply for 24hrs weekly for several months ticagrelor 90 mg oral tablet (20 sources) Start: 05-17-2016 End: 02-28-2025 Ticagrelor (Brilinta) 90 mg tablet Discontinued 0 .ROUTE .COMPLEX 180 3 November 12, 2023 8:52am February 28, 2025 1:38pm TAKE 1 TABLET TWICE A DAY Comment on above: Take 1 tablet by nafisa th twice daily. Problems Active Problems Problem Classification Problem Date Documented Da te Episodic/Chronic Acute myocardial infarction (12 sources) Acute myocardial infarction of inferior wall; Translations: [Myocardial infarction] Onset: 7 08-29-2016 Chronic Alcohol-related disorders (5 sources) Continuous chronic alcoholism; Translations: [Alcohol dependence, uncomplicated] Onset: 7 01-27-2017 Chronic Anxiety disorders (20 sources) Anxiety; Translations: [Anxiety disorder, unspecified] Onset: 5 Chronic Coronary atherosclerosis and other heart disease (20 sources) Atherosclerotic heart disease of [place] coronary artery without angina pectoris; Translations: [Generalized ischemic myocardial dysfunction] Onset: 6 08-29-2016 Chronic Coronary atherosclerosis and other heart disease (3 sources) Presence of coronary angioplasty implant and graft; Translations: [Percutaneous transluminal coronary angioplasty status] Onset: 6 Episodic Deficiency and other anemia (2 sources) Deficiency of iltrmsd-3-aemsqjnib dehydrogenase; 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] Chronic Diabetes mellitus without complication (2 sources) Drug-induced hyperglycemia; Translations: [Hyperglycemia, unspecified] 09-17-2018 Episodic Disorders of lipid metabolism (20 sources) Hyperlipidemia; Translations: [Mixed hyperlipidemia] Onset: 5 05-30-2016 Chronic Diverticulosis and diverticulitis (20 sources) Diverticulum of large intestine without hemorrhage; Translations: [Diverticulosis of large intestine without perforation or abscess without bleeding] Onset: 7 06-13-2016 Chronic Esophageal disorders (20 sources) Gastroesophageal reflux disease without esophagitis; Translations: [Gastro-esophageal reflux disease without esophagitis] Onset: 5 Chronic Essential hypertension (20 sources) Essential hypertension; Translations: [Essential (primary) hypertension] Onset: 6 09-28-2015 Chronic Gout and other crystal arthropathies (20 sources) Chronic gouty arthritis; Translations: [Idiopathic chronic gout, multiple sites, without tophus (tophi)] Onset: 9 11-25-2020 Chronic Immunizations and screening for infectious disease (1 source) Encounter for immunization; Translations: [Encounter for immunization] Onset: 5 Episodic Malaise and fatigue (2 sources) Malaise and fatigue; Translations: [Other malaise] Episodic Mycoses (1 source) Pityriasis versicolor; Translations: [Tinea versicolor] Onset: 5 Episodic Nonspecific chest pain (4 sources) Acute chest pain; Translations: [Chest pain, unspecified] 09-17-2018 Episodic Other aftercare (20 sources) Drug therapy finding; Translations: [Other watermaster (current) drug therapy] Onset: 2 Episodic Other and ill-defined heart disease (2 sources) Mitral papillary muscle dysfunction; Translations: [Other ill-defined heart diseases] 10-20-2019 Chronic Other connective tissue disease (2 sources) Bursitis of olecranon of right elbow; Translations: [Olecranon bursitis, right elbow] Episodic Other connective tissue disease (1 source) Metatarsalgia of right foot; Translations: [Metatarsalgia, right foot] 10-17-2021 Episodic Other gastrointestinal disorders (2 sources) Occult blood in stools; Translations: [Other fecal abnormalities] 09-17-2018 Episodic Other liver diseases (20 sources) Steatosis of liver; Translations: [Fatty (change of) liver, not elsewhere classified] Onset: 2 06-13-2021 Chronic Other lower respiratory disease (1 source) Snoring; Translations: [Snoring] 01-17-2023 Episodic Other non-traumatic joint disorders (3 sources) Multiple joint pain; Translations: [Pain in unspecified joint] Episodic Other non-traumatic joint disorders (2 sources) Joint pain; Translations: [Pain in unspecified joint] Episodic Other upper respiratory disease (20 sources) Seasonal allergy; Translations: [Other seasonal allergic rhinitis] Onset: 0 03-29-2015 Chronic Residual codes; unclassified (1 source) Obstructive sleep apnea syndrome; Translations: [Obstructive sleep apnea (adult) (pediatric)] 03-31-2023 Chronic Screening and history of mental health and substance abuse codes (1 source) Encounter for screening for depression; Translations: [Screening for depression] Onset: 5 Episodic Unclassified (6 sources) Placement of stent in coronary artery ; Translations: [Presence of other cardiac implants and grafts] Onset: 6 05-22-2016 Past or Other Problems Problem Classification Problem Date Documented Date Episodic/Chronic Abdominal hernia (20 sources) Left inguinal hernia ; Translations: [Unilateral inguinal hernia, without obstruction or gangrene, not specified as recurrent] Onset: 09-02-2017 Resolved: 08-01-2023 03-04-2018 Episodic Abdominal pain (5 sources) Abdominal pain; Translations: [Unspecified abdominal pain] Onset: 01-27-2017 01-27-2017 Episodic Acquired foot deformities (20 sources) Plantarflexion deformity of foot; Translations: [Other acquired deformities of unspecified foot] Onset: 03-30-2013 06-13-2016 Episodic Conditions associated with dizziness or vertigo (1 source) Lightheadedness; Translations: [Dizziness and giddiness] Onset: 04-15-2017 04-15-2017 Episodic Other aftercare (9 sources) Other shelter (current) drug therapy; Translations: [Other shelter (current) drug therapy] Onset: 05-30-2016 05-30-2016 Episodic Other aftercare (20 sources) Patient encounter status; Translations: [Other watermaster (current) drug therapy] Onset: 08-19-2017 11-25-2020 Episodic Other circulatory disease (4 sources) Elevated blood-pressure reading without diagnosis of hypertension; Translations: [Elevated blood-pressure reading, without diagnosis of hypertension] Onset: 09-21-2008 Resolved: 04-18-2010 04-18-2010 Episodic Other connective tissue disease (20 sources) Bilateral plantar fasciitis; Translations: [Plantar fascial fibromatosis] Onset: 11-10-2018 03-15-2019 Episodic Other nutritional; endocrine; and metabolic disorders (8 sources) Body mass index (BMI) 27.0-27.9, adult; Translations: [Body mass index (BMI) 27.0-27.9, adult] Onset: 05-30-2016 05-30-2016 Episodic Other nutritional; endocrine; and metabolic disorders (20 sources) Overweight; Translations: [Overweight] Onset: 02-03-2009 09-02-2017 Episodic Other screening for suspected conditions (not mental disorders or infectious disease) (20 sources) Other specified abnormal findings of blood chemistry; Translations: [Other abnormal blood chemistry] Onset: 08-19-2017 06-13-2021 Episodic Other skin disorders (4 sources) [place]; Translations: [Acne vulgaris] Onset: 05-16-2010 Resolved: 09-12-2010 09-12-2010 Episodic Other skin disorders (4 sources) Skin tag; Translations: [Other hypertrophic disorders of the skin] Onset: 05-16-2010 Resolved: 09-12-2010 09-12-2010 Episodic Results Test Name Value Interpretation Reference Range Facility CBC W Auto Differential pane l (Bld)on 03-02-2025 Basophils (Bld) [#/Vol] 0.05 10*3/uL Normal <0.11 [facility] Comment on above: Order Comment: Speci men Type: BLOOD SPECIMEN Ordering Facility: [facility] Address: [address] [place] [address] Performed By: #### [id number] 7021-8 #### [facility] CLIA [id number] [address] [place] [address] [place] Basophils/100 WBC (Bld) 0.9 % Normal [facility] Comment on above: Order Comment: Speci men Type: BLOOD SPECIMEN Ordering Facility: [facility] Address: [address] [place] [address] Performed By: #### [id number] 7021-8 #### [facility] [facility] CLIA [id number] [address] [place] [address] [place] Differential cell count method Nom (Bld) Auto Normal [facility] Comment on above: Order Comment: Speci men Type: BLOOD SPECIMEN Ordering Facility: [facility] Address: [address] [place] [address] Performed By: #### 5 7021-8 #### [facility] CLIA [id number] [address] [place] [address] [place] Eosinophils (Bld) [#/Vol] 0.23 10*3/uL Normal <0.46 [facility] Comment on above: Order Comment: Speci men Type: BLOOD SPECIMEN Ordering Facility: [facility] Address: [address] [place] [address] Performed By: #### 5 7021-8 #### [facility] CLIA [id number] [address] [place] [address] [place] Eosinophils/100 WBC (Bld) 3.9 % Normal [facility] Comment on above: Order Comment: Speci men Type: BLOOD SPECIMEN Ordering Facility: [facility] Address: [address] [place] [address] Performed By: #### 5 7021-8 #### [facility] CLIA [id number] [address] [place] [address] [place] Erythrocyte distribution width (RBC) [Ratio] 12.0 % Normal 11.5-15.0 [facility] Comment on above: Order Comment: Speci men Type: BLOOD SPECIMEN Ordering Facility: [facility] Address: [address] [place] [address] Performed By: #### 5 7021-8 #### [facility] CLIA [id number] [address] [place] [address] [place] Hematocrit (Bld) [Volume fraction] 40.0 % Normal 39.0-51.0 [facility] Comment on above: Order Comment: Speci men Type: BLOOD SPECIMEN Ordering Facility: [facility] Address: [address] [place] [address] Performed By: #### 5 7021-8 #### [facility] CLIA [id number] [address] [place] [address] [place] Hemoglobin (Bld) [Mass/Vol] 13.9 g/dL Normal 13.0-17.0 [facility] Comment on above: Order Comment: Speci men Type: BLOOD SPECIMEN Ordering Facility: [facility] Address: [address] [place] [address] Performed By: #### 5 7021-8 #### [facility] CLIA [id number] [address] [place] [address] [place] Immature granulocytes (Bld) [#/Vol] 10*3/uL Normal <0.10 [facility] Comment on above: Order Comment: Speci men Type: BLOOD SPECIMEN Ordering Facility: [facility] Address: [address] [place] [address] Performed By: #### 5 7021-8 #### [facility] CLIA [id number] [address] [place] [address] [place] Immature granulocytes/100 WBC (Bld) 0.2 % Normal [facility] Comment on above: Order Comment: Speci men Type: BLOOD SPECIMEN Ordering Facility: [facility] Address: [address] [place] [address] Performed By: #### 5 7021-8 #### [facility] CLIA [id number] [address] [place] [address] [place] Lymphocytes (Bld) [#/Vol] 1.26 10*3/uL Normal 1.00-4.00 [facility] Comment on above: Order Comment: Speci men Type: BLOOD SPECIMEN Ordering Facility: [facility] Address: [address] [place] [address] Performed By: #### 5 7021-8 #### [facility] CLIA [id number] [address] [place] [address] [place] Lymphocytes/100 WBC (Bld) 21.5 % Normal [facility] Comment on above: Order Comment: Speci men Type: BLOOD SPECIMEN Ordering Facility: [facility] Address: [address] [place] [address] Performed By: #### 5 7021-8 #### [facility] CLIA [id number] [address] [place] [address] [place] MCH (RBC) [Entitic mass] 32.2 pg Normal 26.0-34.0 [facility] Comment on above: Order Comment: Speci men Type: BLOOD SPECIMEN Ordering Facility: [facility] Address: [address] [place] [address] Performed By: #### 5 7021-8 #### [facility] CLIA [id number] [address] [place] [address] [place] MCHC (RBC) [Mass/Vol] 34.8 g/dL Normal 30.5-36.0 [facility] Comment on above: Order Comment: Speci men Type: BLOOD SPECIMEN Ordering Facility: [facility] Address: [address] [place] [address] Performed By: #### 5 7021-8 #### [facility] CLIA [id number] [address] [place] [address] [place] MCV (RBC) [Entitic vol] 92.6 fL Normal 80.0-100.0 [facility] Comment on above: Order Comment: Speci men Type: BLOOD SPECIMEN Ordering Facility: [facility] Address: [address] [place] [address] Performed By: #### 5 7021-8 #### [facility] CLIA [id number] [address] [place] [address] [place] Monocytes (Bld) [#/Vol] 0.73 10*3/uL Normal <0.87 [facility] Comment on above: Order Comment: Speci men Type: BLOOD SPECIMEN Ordering Facility: [facility] Address: [address] [place] [address] Performed By: #### 5 7021-8 #### [facility] CLIA [id number] [address] [place] [address] [place] Monocytes/100 WBC (Bld) 12.5 % Normal [facility] Comment on above: Order Comment: Speci men Type: BLOOD SPECIMEN Ordering Facility: [facility] Address: [address] [place] [address] Performed By: #### 5 7021-8 #### [facility] CLIA [id number] [address] [place] [address] [place] Neutrophils (Bld) [#/Vol] 3.58 10*3/uL Normal 1.45-7.50 [facility] Comment on above: Order Comment: Speci men Type: BLOOD SPECIMEN Ordering Facility: [facility] Address: [address] [place] [address] Performed By: #### 5 7021-8 #### [facility] CLIA [id number] [address] [place] [address] [place] Neutrophils/100 WBC (Bld) 61.0 % Normal [facility] Comment on above: Order Comment: Speci men Type: BLOOD SPECIMEN Ordering Facility: [facility] Address: [address] [place] [address] Performed By: #### 5 7021-8 #### [facility] CLIA [id number] [address] [place] [address] [place] Nucleated RBC (Bld) [#/Vol] 10*3/uL Normal <0.01 [facility] Comment on above: Order Comment: Speci men Type: BLOOD SPECIMEN Ordering Facility: [facility] Address: [address] [place] [address] Performed By: #### 5 7021-8 #### [facility] CLIA [id number] [address] [place] [address] [place] Nucleated RBC/100 WBC (Bld) [Ratio] 0.0 /100 WBC Normal [facility] Comment on above: Order Comment: Speci men Type: BLOOD SPECIMEN Ordering Facility: [facility] Address: [address] [place] [address] Performed By: #### 5 7021-8 #### [facility] CLIA [id number] [address] [place] [address] [place] Platelet mean volume (Bld) [Entitic vol] 10.7 fL Normal 9.0-12.7 [facility] Comment on above: Order Comment: Speci men Type: BLOOD SPECIMEN Ordering Facility: [facility] Address: [address] [place] [address] Performed By: #### 5 7021-8 #### [facility] CLIA [id number] [address] [place] [address] [place] Platelets (Bld) [#/Vol] 205 10*3/uL Normal 150-400 [facility] Comment on above: Order Comment: Speci men Type: BLOOD SPECIMEN Ordering Facility: [facility] Address: [address] [place] [address] Performed By: #### 5 7021-8 #### [facility] CLIA [id number] [address] [place] [address] [place] RBC (Bld) [#/Vol] 4.32 10*6/uL Normal 4.20-6.00 [facility] Comment on above: Order Comment: Speci men Type: BLOOD SPECIMEN Ordering Facility: [facility] Address: [address] [place] [address] Performed By: #### 5 7021-8 #### [facility] CLIA [id number] [address] [place] [address] [place] WBC (Bld) [#/Vol] 5.86 10*3/uL Normal 3.70-11.00 [facility] Comment on above: Order Comment: Speci men Type: BLOOD SPECIMEN Ordering Facility: [facility] Address: [address] [place] [address] Performed By: #### 5 7021-8 #### [facility] CLIA [id number] [address] [place] [address] [place] Comprehensive metabolic 2000 panelon 03-02-2025 Albumin [Mass/Vol] 4.7 g/dL Normal 3.9-4.9 [facility] Comment on above: Order Comment: Speci men Type: BLOOD SPECIMEN Ordering Facility: [facility] Address: [address] [place] [address] Performed By: #### 3 084-1, 56194-8 #### [facility] CLIA [id number] [address] [place], [place] [address] [place] ALP [Catalytic activity/Vol] 78 U/L Normal 38-113 [facility] Comment on above: Order Comment: Speci men Type: BLOOD SPECIMEN Ordering Facility: [facility] Address: [address] [place] [address] Performed By: #### 3 084-1, 66742-6 #### [facility] CLIA [id number] [address] [place] [id number] [place] ALT [Catalytic activity/Vol] 22 U/L Normal 10-54 [facility] Comment on above: Order Comment: Speci men Type: BLOOD SPECIMEN Ordering Facility: [facility] Address: [address] [place] [address] Performed By: #### 3 084-1, 14505-7 #### [facility] CLIA [id number] [address] [place], [place] [address] [place] Anion gap [Moles/Vol] 15 mmol/L Normal 8-15 [facility] Comment on above: Order Comment: Speci men Type: BLOOD SPECIMEN Ordering Facility: [facility] Address: [address] [place] [address] Performed By: #### 3 084-1, 23939-6 #### [facility] CLIA [id number] [address] [place] [address] [place] AST [Catalytic activity/Vol] 26 U/L Normal 14-40 [facility] Comment on above: Order Comment: Speci men Type: BLOOD SPECIMEN Ordering Facility: [facility] Address: [address] [place] [address] Performed By: #### 3 084-1, 82268-1 #### [facility] CLIA [id number] [address] [place] [address] [place] Bilirubin [Mass/Vol] 0.9 mg/dL Normal 0.2-1.3 [facility] Comment on above: Order Comment: Speci men Type: BLOOD SPECIMEN Ordering Facility: [facility] Address: [address] [place], [place] [address] Performed By: #### 3 084-1, 55067-7 #### [facility] CLIA [id number] [address] [place], [place] [address] [place] Calcium [Mass/Vol] 9.8 mg/dL Normal 8.5-10.2 [facility] Comment on above: Order Comment: Speci men Type: BLOOD SPECIMEN Ordering Facility: [facility] Address: [address] [place], [place] [id number] Performed By: #### 3 084-1, 36838-5 #### [facility] CLIA [id number] [address] [place], [place] [address] [place] Chloride [Moles/Vol] 101 mmol/L Normal 98-107 [facility] Comment on above: Order Comment: Speci men Type: BLOOD SPECIMEN Ordering Facility: [facility] Address: [address] [place] [address] Performed By: #### 3 084-1, 78150-1 #### [facility] CLIA [id number] [address] [place] [address] [place] CO2 [Moles/Vol] 20 mmol/L Low 22-30 [facility] Comment on above: Order Comment: Speci men Type: BLOOD SPECIMEN Ordering Facility: [facility] Address: [address] [place] [address] Performed By: #### 3 084-1, 77228-5 #### [facility] CLIA [id number] [address] [place] [address] [place] Creatinine [Mass/Vol] 1.01 mg/dL Normal 0.73-1.22 [facility] Comment on above: Order Comment: Speci men Type: BLOOD SPECIMEN Ordering Facility: [facility] Address: [address] [place] [address] Performed By: #### 3 084-1, 88940-8 #### [facility] CLIA [id number] [address] [place] [address] [place] eGFRcr SerPlBld CKD-EPI 2021 92 mL/min/1.73m??? Normal >=60 [facility] Comment on above: Order Comment: Speci men Type: BLOOD SPECIMEN Ordering Facility: [facility] Address: [address] [place], [place] [address] Result Comment: Maile mated Glomerular Filtration Rate (eGFR) is calculated using the 2020 CKD-EPI creatinine equation. This equation utilizes serum creatinine, sex, and age as parameters. The creatinine assay has traceable calibration to isotope dilution-mass spectrometry. Refer to KDIGO guidelines for clinical interpretation. In patients with unstable renal function, e.g. those with acute kidney injury, the eGFR may not accurately reflect actual GFR. Performed By: #### 3 084-1, 22338-5 #### [facility] CLIA [id number] [address] [place] [address] [place] Glucose [Mass/Vol] 88 mg/dL Normal 74-99 [facility] Comment on above: Order Comment: Zeny johnson Type: BLOOD SPECIMEN Ordering Facility: [facility] Address: [address] [place] [address] Result Comment: The [place] [employer] (ADA) provides guidance for cutoff values for fasting glucose and random glucose. The ADA defines fasting as no caloric intake for at least 8 hours. Fasting plasma glucose results between 100 to 125 mg/dL indicate increased risk for diabetes (prediabetes). Fasting plasma glucose results greater than or equal to 126 mg/dL meet the criteria for diagnosis of diabetes. In the absence of unequivocal hyperglycemia, results should be confirmed by repeat testing. In a patient with classic symptoms of hyperglycemia or hyperglycemic crisis, random plasma glucose results greater than or equal to 200 mg/dL meet the criteria for diagnosis of diabetes. Reference: Standards of Medical Care in Diabetes 2016, [place] [employer]. Diabetes Care. 2016.39(Suppl 1). Performed By: #### 3 084-1, 69898-9 #### [facility] CLIA [id number] [address] [place] [address] [place] Potassium [Moles/Vol] 4.4 mmol/L Normal 3.7-5.1 [facility] Comment on above: Order Comment: Zeny johnson Type: BLOOD SPECIMEN Ordering Facility: [facility] Address: [address] [place] [address] Performed By: #### 3 084-1, 62236-7 #### [facility] CLIA [id number] [address] [place], [place] [address] [place] Protein [Mass/Vol] 7.3 g/dL Normal 6.3-8.0 [facility] Comment on above: Order Comment: Speci men Type: BLOOD SPECIMEN Ordering Facility: [facility] Address: [address] [place] [address] Performed By: #### 3 084-1, 32659-7 #### [facility] CLIA [id number] [address] [place], [place] [address] [place] Sodium [Moles/Vol] 136 mmol/L Normal 136-144 [facility] Comment on above: Order Comment: Speci men Type: BLOOD SPECIMEN Ordering Facility: [facility] Address: [address] [place] [address] Performed By: #### 3 084-1, 65429-9 #### [facility] CLIA [id number] [address] [place] [address] [place] Urea nitrogen [Mass/Vol] 13 mg/dL Normal 9-24 [facility] Comment on above: Order Comment: Speci men Type: BLOOD SPECIMEN Ordering Facility: [facility] Address: [address] [place] [address] Performed By: #### 3 084-1, 08188-1 #### [facility] CLIA [id number] [address] [place], [place] [address] [place] Urate [facility] Urate [Mass/Vol] 6.5 mg/dL Normal 4.0-8.1 [facility] Comment on above: Order Comment: Speci men Type: BLOOD SPECIMEN Ordering Facility: [facility] Address: [address] [place] [address] Performed By: #### 3 084-1, 18669-8 #### [facility] CLIA [id number] [address] [place], [place] [address] [place] CBC W Auto Differential pane l (Bld)on 03-01-2025 Basophils (Bld) [#/Vol] 0.06 10*3/uL Normal <0.11 [facility] Comment on above: Order Comment: Speci men Type: BLOOD SPECIMEN Ordering Facility: [facility] Address: [address] [place] [address] Performed By: #### 5 7021-8 #### [facility] CLIA [id number] [address] [place] [address] [place] Basophils/100 WBC (Bld) 1.3 % Normal [facility] Comment on above: Order Comment: Speci men Type: BLOOD SPECIMEN Ordering Facility: [facility] Address: [address] [place] [address] Performed By: #### 5 7021-8 #### [facility] CLIA [id number] [address] [place] [address] [place] Differential cell count method Nom (Bld) Auto Normal [facility] Comment on above: Order Comment: Speci men Type: BLOOD SPECIMEN Ordering Facility: [facility] Address: [address] [place] [address] Performed By: #### 5 7021-8 #### [facility] CLIA [id number] [address] [place] [address] [place] Eosinophils (Bld) [#/Vol] 0.26 10*3/uL Normal <0.46 [facility] Comment on above: Order Comment: Speci men Type: BLOOD SPECIMEN Ordering Facility: [facility] Address: [address] [place] [address] Performed By: #### 5 7021-8 #### [facility] CLIA [id number] [address] [place] [address] [place] Eosinophils/100 WBC (Bld) 5.7 % Normal [facility] Comment on above: Order Comment: Speci men Type: BLOOD SPECIMEN Ordering Facility: [facility] Address: [address] [place] [address] Performed By: #### 5 7021-8 #### [facility] CLIA [id number] [address] [place] [address] [place] Erythrocyte distribution width (RBC) [Ratio] 11.9 % Normal 11.5-15.0 [facility] Comment on above: Order Comment: Speci men Type: BLOOD SPECIMEN Ordering Facility: [facility] Address: [address] [place] [address] Performed By: #### 5 7021-8 #### [facility] CLIA [id number] [address] [place] [address] [place] Hematocrit (Bld) [Volume fraction] 40.5 % Normal 39.0-51.0 [facility] Comment on above: Order Comment: Speci men Type: BLOOD SPECIMEN Ordering Facility: [facility] Address: [address] [place] [address] Performed By: #### 5 7021-8 #### [facility] CLIA [id number] [address] [place] [address] [place] Hemoglobin (Bld) [Mass/Vol] 14.2 g/dL Normal 13.0-17.0 [facility] Comment on above: Order Comment: Speci men Type: BLOOD SPECIMEN Ordering Facility: [facility] Address: [address] [place] [address] Performed By: #### 5 7021-8 #### [facility] CLIA [id number] [address] [place] [address] [place] Immature granulocytes (Bld) [#/Vol] 10*3/uL Normal <0.10 [facility] Comment on above: Order Comment: Speci men Type: BLOOD SPECIMEN Ordering Facility: [facility] Address: [address] [place] [address] Performed By: #### 5 7021-8 #### [facility] CLIA [id number] [address] [place] [address] [place] Immature granulocytes/100 WBC (Bld) 0.0 % Normal [facility] Comment on above: Order Comment: Speci men Type: BLOOD SPECIMEN Ordering Facility: [facility] Address: [address] [place] [address] Performed By: #### 5 7021-8 #### [facility] CLIA [id number] [address] [place] [address] [place] Lymphocytes (Bld) [#/Vol] 1.78 10*3/uL Normal 1.00-4.00 [facility] Comment on above: Order Comment: Speci men Type: BLOOD SPECIMEN Ordering Facility: [facility] Address: [address] [place] [address] Performed By: #### 5 7021-8 #### [facility] CLIA [id number] [address] [place] [address] [place] Lymphocytes/100 WBC (Bld) 39.0 % Normal [facility] Comment on above: Order Comment: Speci men Type: BLOOD SPECIMEN Ordering Facility: [facility] Address: [address] [place] [address] Performed By: #### 5 7021-8 #### [facility] CLIA [id number] [address] [place] [address] [place] MCH (RBC) [Entitic mass] 32.3 pg Normal 26.0-34.0 [facility] Comment on above: Order Comment: Speci men Type: BLOOD SPECIMEN Ordering Facility: [facility] Address: [address] [place] [address] Performed By: #### 5 7021-8 #### [facility] CLIA [id number] [address] [place] [address] [place] MCHC (RBC) [Mass/Vol] 35.1 g/dL Normal 30.5-36.0 [facility] Comment on above: Order Comment: Speci men Type: BLOOD SPECIMEN Ordering Facility: [facility] Address: [address] [place] [address] Performed By: #### 5 7021-8 #### [facility] CLIA [id number] [address] [place] [address] [place] MCV (RBC) [Entitic vol] 92.3 fL Normal 80.0-100.0 [facility] Comment on above: Order Comment: Speci men Type: BLOOD SPECIMEN Ordering Facility: [facility] Address: [address] [place] [address] Performed By: #### 5 7021-8 #### [facility] CLIA [id number] [address] [place] [address] [place] Monocytes (Bld) [#/Vol] 0.56 10*3/uL Normal <0.87 [facility] Comment on above: Order Comment: Speci men Type: BLOOD SPECIMEN Ordering Facility: [facility] Address: [address] [place] [address] Performed By: #### 5 7021-8 #### [facility] CLIA [id number] [address] [place] [address] [place] Monocytes/100 WBC (Bld) 12.3 % Normal [facility] Comment on above: Order Comment: Speci men Type: BLOOD SPECIMEN Ordering Facility: [facility] Address: [address] [place] [address] Performed By: #### 5 7021-8 #### [facility] CLIA [id number] [address] [place] [address] [place] Neutrophils (Bld) [#/Vol] 1.90 10*3/uL Normal 1.45-7.50 [facility] Comment on above: Order Comment: Speci men Type: BLOOD SPECIMEN Ordering Facility: [facility] Address: [address] [place] [address] Performed By: #### 5 7021-8 #### [facility] CLIA [id number] [address] [place] [address] [place] Neutrophils/100 WBC (Bld) 41.7 % Normal [facility] Comment on above: Order Comment: Speci men Type: BLOOD SPECIMEN [facility] [facility] Address: [address] [place] [address] Performed By: #### 5 7021-8 #### [facility] CLIA [id number] [address] [place] [address] [place] Nucleated RBC (Bld) [#/Vol] 10*3/uL Normal <0.01 [facility] Comment on above: Order Comment: Speci men Type: BLOOD SPECIMEN Ordering Facility: [facility] Address: [address] [place] [address] Performed By: #### 5 7021-8 #### [facility] CLIA [id number] [address] [place] [address] [place] Nucleated RBC/100 WBC (Bld) [Ratio] 0.0 /100 WBC Normal [facility] Comment on above: Order Comment: Speci men Type: BLOOD SPECIMEN Ordering Facility: [facility] Address: [address] [place] [address] Performed By: #### 5 7021-8 #### [facility] CLIA [id number] [address] [place] [address] [place] Platelet mean volume (Bld) [Entitic vol] 10.3 fL Normal 9.0-12.7 [facility] Comment on above: Order Comment: Speci men Type: BLOOD SPECIMEN Ordering Facility: [facility] Address: [address] [place] [address] Performed By: #### 5 7021-8 #### [facility] CLIA [id number] [address] [place] [address] [place] Platelets (Bld) [#/Vol] 208 10*3/uL Normal 150-400 [facility] Comment on above: Order Comment: Speci men Type: BLOOD SPECIMEN Ordering Facility: [facility] Address: [address] [place] [address] Performed By: #### 5 7021-8 #### [facility] CLIA [id number] [address] [place] [address] [place] RBC (Bld) [#/Vol] 4.39 10*6/uL Normal 4.20-6.00 [facility] Comment on above: Order Comment: Speci men Type: BLOOD SPECIMEN Ordering Facility: [facility] Address: [address] [place] [address] Performed By: #### 5 7021-8 #### [facility] CLIA [id number] [address] [place] [address] [place] WBC (Bld) [#/Vol] 4.56 10*3/uL Normal 3.70-11.00 [facility] Comment on above: Order Comment: Speci men Type: BLOOD SPECIMEN Ordering Facility: [facility] Address: [address] [place] [address] Performed By: #### 5 7021-8 #### [facility] CLIA [id number] [address] [place] [address] [place] CNOVon 03-01-2025 CNOV Office Visit (FAMPWS) BASIM ALEXANDRA ([id number]) 1975 M Date Time Provider Department 03/01/25 9:40 AM LETICIA PRASAD FAMRaysaWS During your visit today, we recorded the following information about you: Pulse Respiration Blood pressure Weight 65/minute 12/minute 112/70 90.4 kg Height 1.854 m Leticia Prasad PA-C 03/01/2025 11:17 AM Signed Chief Complaint Patient presents with: Yearly Exam: med refills HPI Basim Alexandra is a 49 year old male who presents here today for physical. Patient has a history of HTN, HLD, CAD, and gout as well as those as below. CAD: - Recent cardiology appointment. - Brilinta switched to Plavix without issues. - Continues atorvastatin. - Continues lisinopril 5 mg daily. - Continues metoprolol tartrate 12.5 mg BID. Gout: - Uloric switched to allopurinol without issues. - Upcoming virtual appointment with ceramic coater machine. Tinea Versicolor: - Chronic condition managed with selenium sulfide shampoo and previously with fluconazole. - Concerns about potential interaction between fluconazole and Plavix. Incarceration: - [facility]ased [facility] on [facility] after 1.5 years. - No drug or alcohol-related offenses. - No alcohol consumption during incarceration; plans to abstain for at least another year or two. Weight Loss: - Lost 30 lbs during incarceration. - Attributes weight loss to dietary changes, including eating beans and rice. - Plans to continue some dietary habits post-release. Past medical history, appointments, medications, allergies reviewed. Previous Medical History PAST MEDICAL HISTORY Diagnosis Date Anxiety 03/29/2015 Coronary artery disease due to lipid rich plaque 08/19/[address] Partida Diverticulosis of large intestine without hemorrhage 06/13/2016 Elevated LFTs 06/13/2021 Equinus deformity of foot 03/30/2013 Essential hypertension with goal blood pressure less than 140/90 09/28/2015 Fatty liver 06/13/2021 Gastroesophageal reflux disease without esophagitis 03/29/2015 H/O heart artery stent 05/17/201605/2016: Mid Circ and Obtuse marginal History of ST elevation myocardial infarction (STEMI) 05/17/2016 05/15/2016, seeing Dr. Partida Inguinal hernia of left side without obstruction or gangrene 09/02/2017 Very mild on exam 08/2017 possible early start of. Mixed hyperlipidemia 03/29/2015 Obesity Over weight 02/03/2009 Plantar fasciitis, bilateral 11/10/2018 Seasonal allergies 04/18/2010 Stress reaction 02/19/2017 Well adult exam 04/09/2016 last done: 09/01/2017 Previous Surgical History PAST SURGICAL HISTORY Procedure Laterality Date 2D ECHO (EXEP) 05/15/2016 EF=45% mod systolic dys, mod papillary muscl dys of MV, mod PA. COLONOSCOPY - DIAGNOSTIC 06/12/2020 PAST SURGICAL HISTORY OF 05/15/2016 Stent to Circ and obtuse marginal RPR 1ST INGUN HRNA AGE 7 YRS/> REDUCIBLE Left 06/15/2018 Hernia repair, inguinal STRESS TEST 02/05/2018 normal stress echo TOOTH EXTRACTION wisdom teeth Family History FAMILY HISTORY Problem Relation Age of Onset Depression Mother Hyperlipidemia Mother Lung Cancer Mother Pancreatic Cancer Father 79 other (Afib) Father No Known Problems Sister Alzheimer's Disease Maternal Grandmother Coronary Artery Disease Maternal Grandmother Coronary Artery Disease Maternal Grandfather early 50's Alzheimer's Disease Maternal Aunt Diabetes Maternal Aunt maternal cousin DM1 Coronary Artery Disease Other multiple maternal cousins with Stents Anesthesia Problems No Family History Blood Clots No Family History Clotting Disorder No Family History Prostate Cancer No Family History Patient Allergies ALLERGIES Allergen Reactions Azithromycin Shortness of Breath Erythromycin GI Upset Current Medications Current Outpatient Medications on File Prior to Visit Medication Sig clopidogrel (PLAVIX) 75 mg tablet Take 75 mg by mouth once daily. metoprolol tartrate, short acting, (LOPRESSOR) 25 mg tablet Take 12.5 mg by mouth two times a day. Per cardio atorvastatin (LIPITOR) 40 mg tablet Take 1 tablet by mouth once daily. CPAP/BIPAP/OTHER Type .CPAPSettings into a note to see current settings/supplies/DM E information. lisinopril (ZESTRIL, PRINIVIL) 5 mg tablet Take 1 tablet by mouth once daily. aspirin, enteric coated (ASPIR-81) 81 mg EC tablet Take 1 tablet by mouth once daily. cetirizine (ZYRTEC) 10 mg tablet Take 1 tablet by mouth once daily. IBUPROFEN 200 MG CAP take 2-3 as needed sour monsalve extract (TART MONSALVE EXTRACT ORAL) Take 1,200 mg by mouth twice daily. (Patient not taking: Reported on 03/01/2025) No current facility-administere d medications on file prior to visit. Social History SOCIAL HISTORY[1] Review of Symptoms REVIEW OF SYSTEMS Constitutional: (+) weight loss, (-) fever, (-) fatigue, (-) weakness Head: (-) headaches Eyes: (-) vision changes Ears/Nose/ (more content not included)... Normal [facility] metabolic 2000 panelon 03-01-2025 Albumin [Mass/Vol] 4.7 g/dL Normal 3.9-4.9 [facility] Comment on above: Order Comment: Speci men Type: BLOOD SPECIMEN Ordering Facility: [facility] Address: [address] [place] [address] Performed By: #### L IPNF, 32892-3, 58198-9, 3084-1 #### [facility] CLIA [id number] [address] [place] [address] [place] ALP [Catalytic activity/Vol] 75 U/L Normal 38-113 [facility] Comment on above: Order Comment: Speci men Type: BLOOD SPECIMEN Ordering Facility: [facility] Address: [address] [place] [address] Performed By: #### L IPNF, 59284-7, 83060-2, 3084-1 #### [facility] CLIA [id number] [address] [place] [address] [place] ALT [Catalytic activity/Vol] 22 U/L Normal 10-54 [facility] Comment on above: Order Comment: Speci men Type: BLOOD SPECIMEN Ordering Facility: [facility] Address: [address] [place] [address] Performed By: #### L IPNF, 81530-8, 37349-9, 3084-1 #### [facility] CLIA [id number] [address] [place] [address] [place] Anion gap [Moles/Vol] 14 mmol/L Normal 8-15 [facility] Comment on above: Order Comment: Speci men Type: BLOOD SPECIMEN Ordering Facility: [facility] Address: [address] [place] [address] Performed By: #### L IPNF, 14721-0, 25822-3, 3084-1 #### [facility] CLIA [id number] [address] [id number] [address] [place] AST [Catalytic activity/Vol] 23 U/L Normal 14-40 [facility] Comment on above: Order Comment: Speci men Type: BLOOD SPECIMEN Ordering Facility: [facility] Address: [address] [place] [address] Performed By: #### L IPNF, 35209-3, 19978-0, 3084-1 #### [facility] CLIA [id number] [address] [place] [address] [place] Bilirubin [Mass/Vol] 0.8 mg/dL Normal 0.2-1.3 [facility] Comment on above: Order Comment: Speci men Type: BLOOD SPECIMEN Ordering Facility: [facility] Address: [address] [place] [address] Performed By: #### L IPNF, 97919-4, 33548-7, 3084-1 #### [facility] CLIA [id number] [address] [place] [address] [place] Calcium [Mass/Vol] 10.1 mg/dL Normal 8.5-10.2 [facility] Comment on above: Order Comment: Speci men Type: BLOOD SPECIMEN Ordering Facility: [facility] Address: [address] [place] [address] Performed By: #### L IPNF, 86867-5, 22198-2, 3084-1 #### [facility] CLIA [id number] [address] [place] [address] [place] Chloride [Moles/Vol] 102 mmol/L Normal 98-107 [facility] Comment on above: Order Comment: Speci men Type: BLOOD SPECIMEN Ordering Facility: [facility] Address: [address] [place] [address] Performed By: #### L IPNF, 72373-7, 91024-6, 3084-1 #### [facility] CLIA [id number] [address] [place] [address] [place] CO2 [Moles/Vol] 21 mmol/L Low 22-30 [facility] Comment on above: Order Comment: Speci elizabeth Type: BLOOD SPECIMEN Ordering Facility: [facility] Address: [address] [place] [address] Performed By: #### L IPTEE, 34314-8, 99724-3, 4-1 #### [facility] CLIA [id number] [address] [place] [address] [place] Creatinine [Mass/Vol] 1.00 mg/dL Normal 0.73-1.22 [facility] Comment on above: Order Comment: Alfredi men Type: BLOOD SPECIMEN Ordering Facility: [facility] Address: [address] [place] [address] Performed By: #### L ADIEL, 27626-5, 60770-6, 3083- #### [facility] CLIA [id number] [address] [place] [address] [place] eGFRcr SerPlBld CKD-EPI 2020 93 mL/min/1.73m??? Normal >=60 [facility] Comment on above: Order Comment: Zeny johnson Type: BLOOD SPECIMEN Ordering Facility: [facility] Address: [address] [place] [address] Result Comment: Maile mated Glomerular Filtration Rate (eGFR) is calculated using the 2020 CKD-EPI creatinine equation. This equation utilizes serum creatinine, sex, and age as parameters. The creatinine assay has traceable calibration to isotope dilution-mass spectrometry. Refer to KDIGO guidelines for clinical interpretation. In patients with unstable renal function, e.g. those with acute kidney injury, the eGFR may not accurately reflect actual GFR. Performed By: #### L IPTEE, 82636-0, 44478-4, 3083-1 #### [facility] CLIA [id number] [address] [place] [address] [place] Glucose [Mass/Vol] 91 mg/dL Normal 74-99 [facility] Comment on above: Order Comment: Speci men Type: BLOOD SPECIMEN Ordering Facility: [facility] Address: [address] [place] [address] Result Comment: The [place] Diabetes Association (ADA) provides guidance for cutoff values for fasting glucose and random glucose. The ADA defines fasting as no caloric intake for at least 8 hours. Fasting plasma glucose results between 100 to 125 mg/dL indicate increased risk for diabetes (prediabetes). Fasting plasma glucose results greater than or equal to 126 mg/dL meet the criteria for diagnosis of diabetes. In the absence of unequivocal hyperglycemia, results should be confirmed by repeat testing. In a patient with classic symptoms of hyperglycemia or hyperglycemic crisis, random plasma glucose results greater than or equal to 200 mg/dL meet the criteria for diagnosis of diabetes. Reference: Standards of Medical Care in Diabetes 2016, [place] [employer] Association. Diabetes Care. 2016.39(Suppl 1). Performed By: #### L ADIEL, , 07716-6, 3083- #### [facility] CLIA [id number] [address] [place] [address] [place] Potassium [Moles/Vol] 4.4 mmol/L Normal 3.7-5.1 [facility] Comment on above: Order Comment: Speci men Type: BLOOD SPECIMEN Ordering Facility: [facility] Address: [address] [place] [address] Performed By: #### L ADIEL, , , 3083- #### [facility] CLIA [id number] [address] [place] [address] [place] Protein [Mass/Vol] 7.5 g/dL Normal 6.3-8.0 [facility] Comment on above: Order Comment: Speci men Type: BLOOD SPECIMEN Ordering Facility: [facility] Address: [address] [place] [address] Performed By: #### L IPNF, , , 3083- #### [facility] CLIA [id number] [address] [place], [place] [address] [place] Sodium [Moles/Vol] 137 mmol/L Normal 136-144 [facility] Comment on above: Order Comment: Zeny men Type: BLOOD SPECIMEN Ordering Facility: [facility] Address: [address] [place] [address] Performed By: #### L IPNF, 68022-4, 67742-8, 3084-1 #### [facility] CLIA [id number] [address] [place] [address] [place] Urea nitrogen [Mass/Vol] 15 mg/dL Normal 9-24 [facility] Comment on above: Order Comment: Alfredi men Type: BLOOD SPECIMEN Ordering Facility: [facility] Address: [address] [place] [address] Performed By: #### L IPNF, 28998-7, 08245-1, 3084-1 #### [facility] CLIA [id number] [address] [place] [address] [place] HbA1c (Bld)on 03-01-2025 Average glucose Estimated from glycated hemoglobin (Bld) [Mass/Vol] 97 mg/dL Normal [facility] Comment on above: Order Comment: Zeny johnson Type: BLOOD SPECIMEN Ordering Facility: [facility] Address: [address] [place] [address] Result Comment: eAG: (Estimated average glucose) is a calculated value from HgbA1c and is administrative representative of the average blood glucose level in the last 2-3 month period. Performed By: #### 5 5454-3 #### [facility] CLIA [id number] [address] [place] [address] [place] HbA1c (Bld) [Mass fraction] 5.0 % Normal 4.3-5.6 [facility] Comment on above: Order Comment: Zeny johnson Type: BLOOD SPECIMEN Ordering Facility: [facility] Address: [address] [place] [address] Result Comment: [place] Diabetes Association guidelines indicate that patients with HgbA1c in the range 5.7-6.4% are at increased risk for development of diabetes, and intervention by lifestyle modification may be beneficial. HgbA1c greater or equal to 6.5% is considered diagnostic of diabetes. Performed By: #### 5 5454-3 #### [facility] CLIA [id number] [address] [place] [address] [place] LIPID PANEL, NONFASTINGon Cholesterol [Mass/Vol] 130 mg/dL Normal <200 [facility] Comment on above: Order Comment: Zeny johnson Type: BLOOD SPECIMEN Ordering Facility: [facility] Address: [address] [place] [address] Result Comment: <200 mg/dL, Desirable 200-239 mg/dL, Borderline high >239 mg/dL, High Performed By: #### L IPTEE, 96617-8, 13030-1, 3084-1 #### [facility] CLIA [id number] [address] [place] [address] [place] HDL CHOLESTEROL, NF 44 mg/dL Normal >39 [facility] Comment on above: Order Comment: Zeny johnson Type: BLOOD SPECIMEN Ordering Facility: [facility] Address: [address] [place] [address] Result Comment: 40-5 9 mg/dL, Acceptable >59 mg/dL, High: Negative risk factor for coronary heart disease <40 mg/dL, Low: Positive risk factor for coronary heart disease Performed By: #### L IPNF, 39124-1, 92969-3, 3084-1 #### [facility] CLIA [id number] [address] [place] [address] [place] LDL CHOLESTEROL CALCULATED, NF 72 mg/dL Normal <100 [facility] Comment on above: Order Comment: Zeny johnson Type: BLOOD SPECIMEN Ordering Facility: [facility] Address: [address] [place] [address] Result Comment: <100 mg/dL, Optimal 100-129 mg/dL, Near optimal/above optimal 130-159 mg/dL, Borderline high 160-189 mg/dL, High >189 mg/dL, Very high Secondary prevention optimal LDL Cholesterol levels are recommended to be <70 mg/dL LDL cholesterol is calculated using the Chong-NIH equation. Performed By: #### L ADIEL, 14896-4, 39202-5, 3083- #### [facility] CLIA [id number] [address] [place] [address] [place] LDL/HDL RATIO, NF 1.64 mg/dL Normal <2.54 [facility] Comment on above: Order Comment: Zeny men Type: BLOOD SPECIMEN Ordering Facility: [facility] Address: [address] [place] [address] Result Comment: Refe rence: 1. National Cholesterol Education Program ATP III Guideline At-A-Glance Quick Desk Reference: National Heart, Lung, and Blood Dowell. National Institutes of Health. 2001: NIH Publication No. 01-3305. 2. An International Atherosclerosis Society position paper: global recommendations for the management of dyslipidemia: executive summary, Atherosclerosis. 2014: 232(2):410-413. Performed By: #### L ADIEL, , , 3083-06 #### [facility] CLIA [id number] [address] [place] [address] STATES OF [facility] NON HDL CHOL, NF 86 mg/dL Normal <130 [facility] Comment on above: Order Comment: Zeny johnson Type: BLOOD SPECIMEN Ordering Facility: [facility] Address: [address] [place] [address] Result Comment: <130 mg/dL, Optimal 130-159 mg/dL, Near optimal/above optimal 160-189 mg/dL, Borderline high 190-219 mg/dL, High >219 mg/dL, Very high Secondary prevention optimal non HDL Cholesterol levels are recommended to be <100 mg/dL Performed By: #### L ADIEL, 49096-4, 66184-1, 3083- #### [facility] CLIA [id number] [address] [place] [address] OF [facility] T CHOL/HDL RATIO NF 2.95 mg/dL Normal <5.10 [facility] Comment on above: Order Comment: Alfredi men Type: BLOOD SPECIMEN Ordering Facility: [facility] Address: [address] [place] [address] Performed By: #### L IPTEE, , , 3083- #### [facility] CLIA [id number] [address] [place] [address] [place] TRIGLYCERIDES, NF 65 mg/dL Normal <150 [facility] Comment on above: Order Comment: Speci men Type: BLOOD SPECIMEN Ordering Facility: [facility] Address: [address] [place] [address] Result Comment: <150 mg/dL, Normal 150-199 mg/dL, Borderline high 200-499 mg/dL, High >499 mg/dL, Very high Performed By: #### L ADIEL, , , 3083-06 #### [facility] CLIA [id number] [address] [place] [address] [place] VLDL CHOLESTEROL, NF 10 mg/dL Normal <30 [facility] Comment on above: Order Comment: Speci men Type: BLOOD SPECIMEN Ordering Facility: [facility] Address: [address] [place] [address] Performed By: #### L ADIEL, , , 3083-06 #### [facility] CLIA [id number] [address] [place] [address] [place] Magnesium SerPl-mCncon 03-01 Magnesium [Mass/Vol] 2.2 mg/dL Normal 1.7-2.3 [facility] Comment on above: Order Comment: Speci men Type: BLOOD SPECIMEN Ordering Facility: [facility] Address: [address] [place] [address] Performed By: #### L IPTEE, , , 3083- #### [facility] CLIA [id number] [address] [place] [address] [place] Urate SerPl-mCncon Urate [Mass/Vol] 6.6 mg/dL Normal 4.0-8.1 [facility] Comment on above: Order Comment: Speci men Type: BLOOD SPECIMEN Ordering Facility: [facility] Address: [address] [place] [address] Performed By: #### L IPNF, 24454-2, 62428-0, 3084-1 #### [facility] CLIA [id number] [address] [place] [address] [place] Urinalysis complete panel (U )on 03-01-2025 Bacteria LM.HPF (Urine sed) [#/Area] Negative Normal Negative [facility] Comment on above: Order Comment: Speci men Type: URINE SPECIMEN Ordering Facility: [facility] Address: [address] [place] [address] Performed By: #### 2 4356-8 #### [facility] CLIA [id number] [address] [place] [address] [place] Bilirubin Ql (U) Negative Normal Negative [facility] Comment on above: Order Comment: Speci men Type: URINE SPECIMEN Ordering Facility: [facility] Address: [address] [place] [address] Performed By: #### 2 4356-8 #### [facility] CLIA [id number] [address] [place] [address] [place] Clarity (Unsp spec) Clear Normal Clear [facility] Comment on above: Order Comment: Speci men Type: URINE SPECIMEN Ordering Facility: [facility] Address: [address] [place] [address] Performed By: #### 2 4356-8 #### [facility] CLIA [id number] [address] [place] [address] [place] Color (U) Yellow Normal Yellow [facility] Comment on above: Order Comment: Speci men Type: URINE SPECIMEN Ordering Facility: [facility] Address: [address] [place] [address] Performed By: #### 2 4356-8 #### [facility] CLIA [id number] [address] [place] [address] Epithelial cells LM.HPF (Urine sed) [#/Area] None Seen Normal [facility] Comment on above: Order Comment: Speci men Type: URINE SPECIMEN Ordering Facility: [facility] Address: [address] [place] [address] Performed By: #### 2 4356-8 #### [facility] CLIA [id number] [address] [place] [address] OF [facility] Glucose Test strip (U) [Mass/Vol] Negative Normal Negative [facility] Comment on above: Order Comment: Speci men Type: URINE SPECIMEN Ordering Facility: [facility] Address: [address] [place] [address] Performed By: #### 2 4356-8 #### [facility] CLIA [id number] [address] [place] [address] [place] Hemoglobin Ql (U) Negative Normal Negative [facility] Comment on above: Order Comment: Speci men Type: URINE SPECIMEN Ordering Facility: [facility] Address: [address] [place] [address] Performed By: #### 2 4356-8 #### [facility] CLIA [id number] [address] [place] [address] [place] Hyaline casts (Urine sed) [#/Area] 0 /[LPF] Normal 0 /LPF [facility] Comment on above: Order Comment: Speci men Type: URINE SPECIMEN Ordering Facility: [facility] Address: [address] [place] [address] Performed By: #### 2 4356-8 #### [facility] CLIA [id number] [address] [place] [address] [place] Ketones Ql (U) Negative Normal Negative [facility] Comment on above: Order Comment: Speci men Type: URINE SPECIMEN Ordering Facility: [facility] Address: [address] [place] [address] Performed By: #### 2 4356-8 #### [facility] CLIA [id number] [address] [place] [address] [place] Leukocyte esterase Test strip Ql (U) Negative Normal Negative [facility] Comment on above: Order Comment: Speci men Type: URINE SPECIMEN Ordering Facility: [facility] Address: [address] [place] [address] Performed By: #### 2 4356-8 #### [facility] CLIA [id number] [address] [place] [address] [place] Nitrite Ql (U) Negative Normal Negative [facility] Comment on above: Order Comment: Speci men Type: URINE SPECIMEN Ordering Facility: [facility] Address: [address] [place] [address] Performed By: #### 2 4356-8 #### [facility] CLIA [id number] [address] [place] [address] [place] pH (U) 7.0 [pH] Normal 5.0-8.0 [facility] Comment on above: Order Comment: Speci men Type: URINE SPECIMEN Ordering Facility: [facility] Address: [address] [place] [address] Performed By: #### 2 4356-8 #### [facility] CLIA [id number] [address] [place] [address] [place] Protein (U) [Mass/Vol] Negative Normal Negative [facility] Comment on above: Order Comment: Speci men Type: URINE SPECIMEN Ordering Facility: [facility] Address: [address] [place] [address] Performed By: #### 2 4356-8 #### [facility] CLIA [id number] [address] [place] [address] [place] RBC LM.HPF (Urine sed) [#/Area] 0-2 /HPF Normal 0-2 /HPF [facility] Comment on above: Order Comment: Speci men Type: URINE SPECIMEN Ordering Facility: [facility] Address: [address] [place] [address] Performed By: #### 2 4356-8 #### [facility] CLIA [id number] [address] [place] [address] [place] Specific gravity (U) [Rel density] 1.008 Normal 1.005-1.030 [facility] Comment on above: Order Comment: Speci men Type: URINE SPECIMEN Ordering Facility: [facility] Address: [address] [place] [address] Performed By: #### 2 4356-8 #### [facility] CLIA [id number] [address] [place] [address] [place] SPERM Present Abnormal None Seen [facility] Comment on above: Order Comment: Speci men Type: URINE SPECIMEN Ordering Facility: [facility] Address: [address] [place] [address] Performed By: #### 2 4356-8 #### [facility] CLIA [id number] [address] [place] [address] [place] Urobilinogen Ql (U) 0.2 EU/dL Normal 0.2-1.0 EU/dL [facility] Comment on above: Order Comment: Speci men Type: URINE SPECIMEN Ordering Facility: [facility] Address: [address] [place] [address] Performed By: #### 2 4356-8 #### [facility] CLIA [id number] [address] [place] [address] [place] WBC LM.HPF (Urine sed) [#/Area] 0-5 /HPF Normal 0-5 /HPF [facility] Comment on above: Order Comment: Speci men Type: URINE SPECIMEN Ordering Facility: [facility] Address: [address] [place] [address] Performed By: #### 2 4356-8 #### [facility] CLIA [id number] [address] [place] [address] [place] Vit B12 SerPl-mCncon 03-01- 025 Cobalamin (Vitamin B12) [Mass/Vol] 359 pg/mL Normal 232-1245 [facility] Comment on above: Order Comment: Speci men Type: BLOOD SPECIMEN Ordering Facility: [facility] Address: [address] [place] [address] Performed By: #### L IPNF, 47698-6, 52611-1, 3084-1 #### [facility] CLIA [id number] [address] [place] [address] [place] Cardiology Visit Reporton Cardiology Visit Report [facility] [address] [place] [address] OFFICE VISIT Date of Service: 02/28/25 MR#: [id number] Acct: [id number] Name: BASIM ALEXANDRA Rep #: [id number] : 1975 Provider: BETHANY gaines Age/Sex: 49/M [place] [facility] [place] Status: Signed HPI HPI History of Present Illness Details: BASIM ALEXANDRA, is a 49 M who presents for a cardiovascular follow-up visit.???Patient was last seen in our office in December 2022. ???He is a gentleman who had a acute ST elevation myocardial infarction May 2016.??? He had a cardiac catheterization and underwent angioplasty and stenting of his acute marginal vessel.??? From a cardiac standpoint, the patient is doing well. He denies any palpitations, chest pain, pressure or heaviness. He denies SOB, Orthopnea, and PND. He does not have bleeding issues; no blood in urine, stool, or nosebleeds. He denies any decrease in energy level, myalgias, or claudication. He does not have edema, or sudden weight gain. He does acknowledge occasional lightheadedness with quick positional changes. He denies dizziness, syncopal or near syncopal episodes, and headaches. 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 Is patient in pain?: No Allergies erythromycin base Allergy (Verified 02/28/25 14:12) Unknown Medications ???Medication ???Instructions ???Recorded ???Confirmed ???Type cetirizine 10 mg capsule 10 mg PO DAILY 12/18/15 02/28/25 H istory aspirin 81 mg chewable tablet 81 mg PO DAILY@0800 09/22/1602/28 History fluoxetine 10 mg capsule 10 mg PO DAILY 05/19/17 02/28/25 H istory pantoprazole 40 mg tablet,delayed 40 mg PO DAILY 10/21/19 02/28/25 History release allopurinol 100 mg tablet 100 mg PO QDAY 02/28/25 02/28/25 H istory atorvastatin 20 mg tablet 40 mg (2 x 20 mg) PO QHS #90 tabs 02/28/25 02/28/25 Rx clopidogrel 75 mg tablet (Plavix) 75 mg PO QDAY #90 tabs 02/28/25 0 02/28/25 Rx lisinopril 5 mg tablet See Rx Instructions .Route 5 02/28/25 Rx .COMPLEX #90 tabs metoprolol tartrate 25 mg tablet See Rx Instructions .Route 5 02/28/25 Rx .COMPLEX #90 tabs Ejection fraction %: 55 Have you fallen in the past year?: No PFSH Medical History Mitral papillary muscle dysfunction Gout Plantar fasciitis Heme positive stool Diverticulitis Pericarditis Essential (primary) hypertension Ischemic cardiomyopathy 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 Acute chest pain Hyperlipidemia Surgical History (Updated 02/28/25 @ 16:15 by Monica Lombardi NP, R&D ENGINEER-C) History of left inguinal hernia repair (06/2018) History of coronary artery stent placement (05/15/16) Family History Father Atrial fibrillation Mother Hyperlipidemia Social History Smoking Status: Never smoker ROS Const Const: Negative for fatigue, weakness, headache(s) or frequent falls Eyes Eyes: Negative for blurry vision ENT ENT: Negative for headache(s), dizziness or Nosebleed/epistaxis Cardio Chest Pain: No Palpitations: No Edema: None Muscle aches with walking: None Resp Respiratory: Negative for SOB with activity, SOB at rest or SOB orthopnea SOB lying down GI GI: Negative nausea, vomiting, heartburn, bright, red blood in stools or black,tarry stools : Negative for hematuria Neuro Neuro: Positive for lightheadedness; Negative for dizziness, near syncope, syncope, frequent falls, headache(s), weakness or blurry vision Endo Endo: Negative for fatigue Cardiology Exam Const Appearance: cooperative, healthy appearing, comfortable, no acute distress and well developed Nutritional Appearance: overweight Orientation: alert, awake and oriented x3 Head Head: normal to inspection Ears: hearing grossly normal bilaterally Nose: external nose normal Face and Sinus: face symmetric Eyes General: appearance normal, both eyes and all related structures Eyelids: eyelids normal Conjunctivae: conjunctivae normal Pupils: PERRL EOM: EOM intact bilaterally Neck Neck: normal visual inspection and trachea midline; Negative no JVD Carotids: Negative bruit Chest Chest inspection: normal inspection of the chest Auscultation: Bilateral: Clear to Auscultation Cardio Palpation: normal PMI (more content not included)... Normal [facility] C-REACTIVE PROTEIN (CRP)on 0 01-16-2022 CRP [Mass/Vol] 0.3 mg/dL <0.9 mg/dL [facility] CBC W Auto Differential pane l (Bld)on 01-16-2022 Abs Immature Gran <0.10 k/uL [facility] Basophils (Bld) [#/Vol] 0.06 10*3/uL <0.11 k/uL [facility] Basophils/100 WBC (Bld) 1.1 % [facility] Differential cell count method Nom (Bld) Auto [facility] Eosinophils (Bld) [#/Vol] 0.33 10*3/uL <0.46 k/uL [facility] Eosinophils/100 WBC (Bld) 6.2 % [facility] Erythrocyte distribution width (RBC) [Ratio] 11.8 % 11.5 - 15.0 % [facility] Hematocrit (Bld) [Volume fraction] 43.6 % 39.0 - 51.0 % [facility] Hemoglobin (Bld) [Mass/Vol] 15.4 g/dL 13.0 - 17.0 g/dL [facility] Immature Gran % 0.2 % [facility] Lymphocytes (Bld) [#/Vol] 1.96 10*3/uL 1.00 - 4.00 k/uL [facility] Lymphocytes/100 WBC (Bld) 36.9 % [facility] MCH (RBC) [Entitic mass] 32.4 pg 26.0 - 34.0 pg [facility] MCHC (RBC) [Mass/Vol] 35.3 g/dL 30.5 - 36.0 g/dL [facility] MCV (RBC) [Entitic vol] 91.8 fL 80.0 - 100.0 fL [facility] Monocytes (Bld) [#/Vol] 0.69 10*3/uL <0.87 k/uL [facility] Monocytes/100 WBC (Bld) 13.0 % [facility] Neutrophils (Bld) [#/Vol] 2.26 10*3/uL 1.45 - 7.50 k/uL [facility] Neutrophils/100 WBC (Bld) 42.6 % [facility] Nucleated RBC (Bld) [#/Vol] <0.01 k/uL [facility] Nucleated RBC/100 WBC (Bld) [Ratio] 0.0 /100 WBC [facility] Platelet mean volume (Bld) [Entitic vol] 9.8 fL 9.0 - 12.7 fL [facility] Platelets (Bld) [#/Vol] 208 10*3/uL 150 - 400 k/uL [facility] RBC (Bld) [#/Vol] 4.75 10*6/uL 4.20 - 6.0 0 m/uL [facility] WBC (Bld) [#/Vol] 5.31 10*3/uL 3.70 - 11. 00 k/uL [facility] Comprehensive metabolic 2000 panelon 01-16-2022 Albumin [Mass/Vol] 4.4 g/dL 3.9 - 4.9 g/dL [facility] ALP [Catalytic activity/Vol] 63 U/L 38 - 113 U/L [facility] ALT [Catalytic activity/Vol] 62 U/L High 10 - 54 U/L [facility] Anion gap [Moles/Vol] 11 mmol/L 9 - 18 mmol/L [facility] AST [Catalytic activity/Vol] 50 U/L High 14 - 40 U/L [facility] Bilirubin [Mass/Vol] 0.8 mg/dL 0.2 - 1 .3 mg/dL [facility] Calcium [Mass/Vol] 9.8 mg/dL 8.5 - 10. 2 mg/dL [facility] Chloride [Moles/Vol] 104 mmol/L 97 - 10 5 mmol/L [facility] CO2 [Moles/Vol] 22 mmol/L 22 - 30 mmol/L [facility] Creatinine [Mass/Vol] 1.09 mg/dL 0.73 - 1.22 mg/dL [facility] Estimated Glomerular Filtration Rate 86 mL/min/1.73m >=60 mL/min/1.73m [facility] Glucose [Mass/Vol] 86 mg/dL 74 - 99 mg/dL [facility] Potassium [Moles/Vol] 4.1 mmol/L 3.7 - 5.1 mmol/L [facility] Protein [Mass/Vol] 7.2 g/dL 6.3 - 8.0 g/dL [facility] Sodium [Moles/Vol] 137 mmol/L 136 - 144 mmol/L [facility] Urea nitrogen [Mass/Vol] 18 mg/dL 9 - 24 mg/dL [facility] ESR Westergren method (Bld) [Velocity]on 01-16-2022 ESR (Bld) [Velocity] 2 mm/h 0 - 15 mm/hr Cl [facility] URIC ACID BLOODon 01-16-2022 Urate [Mass/Vol] 5.7 mg/dL 4.0 - 8.1 mg/dL [facility] No Panel Informationon 10-18 IMPRESSION: Bilateral olecranon bursitis, slightly greater on the LEFT. Nonspecific mild LEFT prepatellar/infrapat ellar soft tissue swelling. Mild degenerative change LEFT navicular cuneiform joint. Otherwise, no significant bone or articular abnormality. Change Management Lead: PSCB Transcribe Date/Time: Oct 18 2021 8:49A Dictated by : ARCELIA VASQUEZ DO This examination was interpreted and the report reviewed and electronically signed by: ARCELIA VASQUEZ DO on Oct 18 2021 10:11AM EST [email or web address] SE_DIVISION OF RADIOLOGY No Panel InformationOrdered By: Ccf Provider on 10-18-2021 [facility] XR Ankle - bilateral AP and Lateral and obliqueon 10-18-2021 * * *Final Report* * * DATE OF EXAM: Oct 17 2021 5:30PM WOX 5553 - XR ANKLE 3V AP/LAT/OBL MENDEZ / PROCEDURE REASON: multiple diagnoses * * * * Physician Interpretation * * * * EXAMINATION: XR HAND 3V PA/LAT/OBL MENDEZ, XR FOOT 3V AP/LAT/OBL MENDEZ, XR ANKLE 3V AP/LAT/OBL MENDEZ, XR KNEE 4V AP/PA/LAT/MERCH MENDEZ, XR WRIST 3V PA/LAT/OBL MENDEZ, XR ELBOW 2V AP/LAT RT, XR ELBOW 2V AP/LAT LT PATIENT/TECHNOLOGIST PROVIDED HISTORY: chronic gout of multiple sites CLINICAL INFORMATION: 46 years old Male with G6PD deficiency. Chronic gout of multiple sites, unspecified cause. Polyarthralgia On colchicine therapy TECHNIQUE: XR HAND 3V PA/LAT/OBL MENDEZ, XR FOOT 3V AP/LAT/OBL MENDEZ, XR ANKLE 3V AP/LAT/OBL MENDEZ, XR KNEE 4V AP/PA/LAT/MERCH MENDEZ, XR WRIST 3V PA/LAT/OBL MENDEZ, XR ELBOW 2V AP/LAT RT, XR ELBOW 2V AP/LAT LT Laterality: BILATERAL Number of different views (projections): 2 views of each elbow, 3 views of each wrist, 3 views of each hand, 4 views of each knee, 3 views of each ankle and 3 views of each foot. COMPARISON: Foot radiographs 10/06/2018, 09/21/2018, LEFT hand radiograph 06/24/2018, RIGHT knee radiographs 07/22/2014 RESULT: Elbows: Mild soft tissue swelling over both olecranon suggesting olecranon bursitis slightly greater on the LEFT. No fracture. No elbow joint effusion. Elbow joint spaces are maintained. Small bilateral olecranon and lateral epicondyle enthesophytes. No erosions. Wrists and hands: No fracture. No erosions, soft tissue calcification or periostitis. Minimal degenerative change RIGHT first CMC joint. Joint spaces and carpal rows are otherwise maintained. Knees: Right knee: Bipartite patella. Joint spaces are maintained. No joint effusion. No fracture. No erosions. Left knee: Nonspecific mild prepatellar/infrapat ellar soft tissue swelling. Joint spaces are maintained. No joint effusion. No fracture. Extensor mechanism enthesophytes. Ankles and Feet: Mild degenerative change LEFT navicular cuneiform joint. Joint spaces are otherwise maintained with scattered tiny marginal osteophytes. No erosions, soft tissue calcification or periostitis. No fracture. Tiny bilateral calcaneal spurs. [email or web address]_U SE_DIVISION OF RADIOLOGY Provider, [facility] - 10/18/2021 * * *Final Report* * * DATE OF EXAM: Oct 17 2021 5:30PM WOX 5553 - XR ANKLE 3V AP/LAT/OBL MENDEZ / PROCEDURE REASON: multiple diagnoses * * * * Physician Interpretation * * * * EXAMINATION: XR HAND 3V PA/LAT/OBL MENDEZ, XR FOOT 3V AP/LAT/OBL MENDEZ, XR ANKLE 3V AP/LAT/OBL MENDEZ, XR KNEE 4V AP/PA/LAT/MERCH MENDEZ, XR WRIST 3V PA/LAT/OBL MENDEZ, XR ELBOW 2V AP/LAT RT, XR ELBOW 2V AP/LAT LT PATIENT/TECHNOLOGIST PROVIDED HISTORY: chronic gout of multiple sites CLINICAL INFORMATION: 46 years old Male with G6PD deficiency. Chronic gout of multiple sites, unspecified cause. Polyarthralgia On colchicine therapy TECHNIQUE: XR HAND 3V PA/LAT/OBL MENDEZ, XR FOOT 3V AP/LAT/OBL MENDEZ, XR ANKLE 3V AP/LAT/OBL MENDEZ, XR KNEE 4V AP/PA/LAT/MERCH MENDEZ, XR WRIST 3V PA/LAT/OBL MENDEZ, XR ELBOW 2V AP/LAT RT, XR ELBOW 2V AP/LAT LT Laterality: BILATERAL Number of different views (projections): 2 views of each elbow, 3 views of each wrist, 3 views of each hand, 4 views of each knee, 3 views of each ankle and 3 views of each foot. COMPARISON: Foot radiographs 10/06/2018, 09/21/2018, LEFT hand radiograph 06/24/2018, RIGHT knee radiographs 07/22/2014 RESULT: Elbows: Mild soft tissue swelling over both olecranon suggesting olecranon bursitis slightly greater on the LEFT. No fracture. No elbow joint effusion. Elbow joint spaces are maintained. Small bilateral olecranon and lateral epicondyle enthesophytes. No erosions. Wrists and hands: No fracture. No erosions, soft tissue calcification or periostitis. Minimal degenerative change RIGHT first CMC joint. Joint spaces and carpal rows are otherwise maintained. Knees: Right knee: Bipartite patella. Joint spaces are maintained. No joint effusion. No fracture. No erosions. Left knee: Nonspecific mild prepatellar/infrapat ellar soft tissue swelling. Joint spaces are maintained. No joint effusion. No fracture. Extensor mechanism enthesophytes. Ankles and Feet: Mild degenerative change LEFT navicular cuneiform joint. Joint spaces are otherwise maintained with scattered tiny marginal osteophytes. No erosions, soft tissue calcification or periostitis. No fracture. Tiny bilateral calcaneal spurs. IMPRESSION IMPRESSION: Bilateral olecranon bursitis, slightly greater on the LEFT. Nonspecific mild LEFT prepatellar/infrapat ellar soft tissue swelling. Mild degenerative change LEFT navicular cuneiform joint. Otherwise, no significant bone or articular abnormality. Change Management Lead: KAYLEY Transcribe Date/Time: Oct 18 2021 8:49A Dictated by : ARCELIA VASQUEZ DO This examination was interpreted and the report reviewed and electronically signed by: ARCELIA VASQUEZ DO on Oct 18 2021 10:11AM [facility] XR Elbow - left AP and Later lamar 10-18-2021 * * *Final Report* * * DATE OF EXAM: Oct 17 2021 5:30PM WOX 5322 - XR ELBOW 2V AP/LAT LT / PROCEDURE REASON: multiple diagnoses * * * * Physician Interpretation * * * * EXAMINATION: XR HAND 3V PA/LAT/OBL MENDEZ, XR FOOT 3V AP/LAT/OBL MENDEZ, XR ANKLE 3V AP/LAT/OBL MENDEZ, XR KNEE 4V AP/PA/LAT/MERCH MENDEZ, XR WRIST 3V PA/LAT/OBL MENDEZ, XR ELBOW 2V AP/LAT RT, XR ELBOW 2V AP/LAT LT PATIENT/TECHNOLOGIST PROVIDED HISTORY: chronic gout of multiple sites CLINICAL INFORMATION: 46 years old Male with G6PD deficiency. Chronic gout of multiple sites, unspecified cause. Polyarthralgia On colchicine therapy TECHNIQUE: XR HAND 3V PA/LAT/OBL MENDEZ, XR FOOT 3V AP/LAT/OBL MENDEZ, XR ANKLE 3V AP/LAT/OBL MENDEZ, XR KNEE 4V AP/PA/LAT/MERCH MENDEZ, XR WRIST 3V PA/LAT/OBL MENDEZ, XR ELBOW 2V AP/LAT RT, XR ELBOW 2V AP/LAT LT Laterality: BILATERAL Number of different views (projections): 2 views of each elbow, 3 views of each wrist, 3 views of each hand, 4 views of each knee, 3 views of each ankle and 3 views of each foot. COMPARISON: Foot radiographs 10/06/2018, 09/21/2018, LEFT hand radiograph 06/24/2018, RIGHT knee radiographs 07/22/2014 RESULT: Elbows: Mild soft tissue swelling over both olecranon suggesting olecranon bursitis slightly greater on the LEFT. No fracture. No elbow joint effusion. Elbow joint spaces are maintained. Small bilateral olecranon and lateral epicondyle enthesophytes. No erosions. Wrists and hands: No fracture. No erosions, soft tissue calcification or periostitis. Minimal degenerative change RIGHT first CMC joint. Joint spaces and carpal rows are otherwise maintained. Knees: Right knee: Bipartite patella. Joint spaces are maintained. No joint effusion. No fracture. No erosions. Left knee: Nonspecific mild prepatellar/infrapat ellar soft tissue swelling. Joint spaces are maintained. No joint effusion. No fracture. Extensor mechanism enthesophytes. Ankles and Feet: Mild degenerative change LEFT navicular cuneiform joint. Joint spaces are otherwise maintained with scattered tiny marginal osteophytes. No erosions, soft tissue calcification or periostitis. No fracture. Tiny bilateral calcaneal spurs. ZZZ_DO_NOT_U SE_DIVISION OF RADIOLOGY Provider, [facility] - 10/18/2021 * * *Final Report* * * DATE OF EXAM: Oct 17 2021 5:30PM WOX 5322 - XR ELBOW 2V AP/LAT LT / PROCEDURE REASON: multiple diagnoses * * * * Physician Interpretation * * * * EXAMINATION: XR HAND 3V PA/LAT/OBL MENDEZ, XR FOOT 3V AP/LAT/OBL MENDEZ, XR ANKLE 3V AP/LAT/OBL MENDEZ, XR KNEE 4V AP/PA/LAT/MERCH MENDEZ, XR WRIST 3V PA/LAT/OBL MENDEZ, XR ELBOW 2V AP/LAT RT, XR ELBOW 2V AP/LAT LT PATIENT/TECHNOLOGIST PROVIDED HISTORY: chronic gout of multiple sites CLINICAL INFORMATION: 46 years old Male with G6PD deficiency. Chronic gout of multiple sites, unspecified cause. Polyarthralgia On colchicine therapy TECHNIQUE: XR HAND 3V PA/LAT/OBL MENDEZ, XR FOOT 3V AP/LAT/OBL MENDEZ, XR ANKLE 3V AP/LAT/OBL MENDEZ, XR KNEE 4V AP/PA/LAT/MERCH MENDEZ, XR WRIST 3V PA/LAT/OBL MENDEZ, XR ELBOW 2V AP/LAT RT, XR ELBOW 2V AP/LAT LT Laterality: BILATERAL Number of different views (projections): 2 views of each elbow, 3 views of each wrist, 3 views of each hand, 4 views of each knee, 3 views of each ankle and 3 views of each foot. COMPARISON: Foot radiographs 10/06/2018, 09/21/2018, LEFT hand radiograph 06/24/2018, RIGHT knee radiographs 07/22/2014 RESULT: Elbows: Mild soft tissue swelling over both olecranon suggesting olecranon bursitis slightly greater on the LEFT. No fracture. No elbow joint effusion. Elbow joint spaces are maintained. Small bilateral olecranon and lateral epicondyle enthesophytes. No erosions. Wrists and hands: No fracture. No erosions, soft tissue calcification or periostitis. Minimal degenerative change RIGHT first CMC joint. Joint spaces and carpal rows are otherwise maintained. Knees: Right knee: Bipartite patella. Joint spaces are maintained. No joint effusion. No fracture. No erosions. Left knee: Nonspecific mild prepatellar/infrapat ellar soft tissue swelling. Joint spaces are maintained. No joint effusion. No fracture. Extensor mechanism enthesophytes. Ankles and Feet: Mild degenerative change LEFT navicular cuneiform joint. Joint spaces are otherwise maintained with scattered tiny marginal osteophytes. No erosions, soft tissue calcification or periostitis. No fracture. Tiny bilateral calcaneal spurs. IMPRESSION IMPRESSION: Bilateral olecranon bursitis, slightly greater on the LEFT. Nonspecific mild LEFT prepatellar/infrapat ellar soft tissue swelling. Mild degenerative change LEFT navicular cuneiform joint. Otherwise, no significant bone or articular abnormality. Change Management Lead: KAYLEY Transcribe Date/Time: Oct 18 2021 8:49A Dictated by : ARCELIA VASQUEZ DO This examination was interpreted and the report reviewed and electronically signed by: ARCELIA VASQUEZ DO on Oct 18 2021 10:11AM [facility] XR Elbow - right AP and Late ralon 10-18-2021 * * *Final Report* * * DATE OF EXAM: Oct 17 2021 5:30PM WOX 5323 - XR ELBOW 2V AP/LAT RT / PROCEDURE REASON: multiple diagnoses * * * * Physician Interpretation * * * * EXAMINATION: XR HAND 3V PA/LAT/OBL MENDEZ, XR FOOT 3V AP/LAT/OBL MENDEZ, XR ANKLE 3V AP/LAT/OBL MENDEZ, XR KNEE 4V AP/PA/LAT/MERCH MENDEZ, XR WRIST 3V PA/LAT/OBL MENDEZ, XR ELBOW 2V AP/LAT RT, XR ELBOW 2V AP/LAT LT PATIENT/TECHNOLOGIST PROVIDED HISTORY: chronic gout of multiple sites CLINICAL INFORMATION: 46 years old Male with G6PD deficiency. Chronic gout of multiple sites, unspecified cause. Polyarthralgia On colchicine therapy TECHNIQUE: XR HAND 3V PA/LAT/OBL MENDEZ, XR FOOT 3V AP/LAT/OBL MENDEZ, XR ANKLE 3V AP/LAT/OBL MENDEZ, XR KNEE 4V AP/PA/LAT/MERCH MENDEZ, XR WRIST 3V PA/LAT/OBL MENDEZ, XR ELBOW 2V AP/LAT RT, XR ELBOW 2V AP/LAT LT Laterality: BILATERAL Number of different views (projections): 2 views of each elbow, 3 views of each wrist, 3 views of each hand, 4 views of each knee, 3 views of each ankle and 3 views of each foot. COMPARISON: Foot radiographs 10/06/2018, 09/21/2018, LEFT hand radiograph 06/24/2018, RIGHT knee radiographs 07/22/2014 RESULT: Elbows: Mild soft tissue swelling over both olecranon suggesting olecranon bursitis slightly greater on the LEFT. No fracture. No elbow joint effusion. Elbow joint spaces are maintained. Small bilateral olecranon and lateral epicondyle enthesophytes. No erosions. Wrists and hands: No fracture. No erosions, soft tissue calcification or periostitis. Minimal degenerative change RIGHT first CMC joint. Joint spaces and carpal rows are otherwise maintained. Knees: Right knee: Bipartite patella. Joint spaces are maintained. No joint effusion. No fracture. No erosions. Left knee: Nonspecific mild prepatellar/infrapat ellar soft tissue swelling. Joint spaces are maintained. No joint effusion. No fracture. Extensor mechanism enthesophytes. Ankles and Feet: Mild degenerative change LEFT navicular cuneiform joint. Joint spaces are otherwise maintained with scattered tiny marginal osteophytes. No erosions, soft tissue calcification or periostitis. No fracture. Tiny bilateral calcaneal spurs. [email or web address]_U SE_DIVISION OF RADIOLOGY Provider, [facility] [place] - 10/18/2021 * * *Final Report* * * DATE OF EXAM: Oct 17 2021 5:30PM WOX 5323 - XR ELBOW 2V AP/LAT RT / PROCEDURE REASON: multiple diagnoses * * * * Physician Interpretation * * * * EXAMINATION: XR HAND 3V PA/LAT/OBL MENDEZ, XR FOOT 3V AP/LAT/OBL MENDEZ, XR ANKLE 3V AP/LAT/OBL MENDEZ, XR KNEE 4V AP/PA/LAT/MERCH MENDEZ, XR WRIST 3V PA/LAT/OBL MENDEZ, XR ELBOW 2V AP/LAT RT, XR ELBOW 2V AP/LAT LT PATIENT/TECHNOLOGIST PROVIDED HISTORY: chronic gout of multiple sites CLINICAL INFORMATION: 46 years old Male with G6PD deficiency. Chronic gout of multiple sites, unspecified cause. Polyarthralgia On colchicine therapy TECHNIQUE: XR HAND 3V PA/LAT/OBL MENDEZ, XR FOOT 3V AP/LAT/OBL MENDEZ, XR ANKLE 3V AP/LAT/OBL MENDEZ, XR KNEE 4V AP/PA/LAT/MERCH MENDEZ, XR WRIST 3V PA/LAT/OBL MENDEZ, XR ELBOW 2V AP/LAT RT, XR ELBOW 2V AP/LAT LT Laterality: BILATERAL Number of different views (projections): 2 views of each elbow, 3 views of each wrist, 3 views of each hand, 4 views of each knee, 3 views of each ankle and 3 views of each foot. COMPARISON: Foot radiographs 10/06/2018, 09/21/2018, LEFT hand radiograph 06/24/2018, RIGHT knee radiographs 07/22/2014 RESULT: Elbows: Mild soft tissue swelling over both olecranon suggesting olecranon bursitis slightly greater on the LEFT. No fracture. No elbow joint effusion. Elbow joint spaces are maintained. Small bilateral olecranon and lateral epicondyle enthesophytes. No erosions. Wrists and hands: No fracture. No erosions, soft tissue calcification or periostitis. Minimal degenerative change RIGHT first CMC joint. Joint spaces and carpal rows are otherwise maintained. Knees: Right knee: Bipartite patella. Joint spaces are maintained. No joint effusion. No fracture. No erosions. Left knee: Nonspecific mild prepatellar/infrapat ellar soft tissue swelling. Joint spaces are maintained. No joint effusion. No fracture. Extensor mechanism enthesophytes. Ankles and Feet: Mild degenerative change LEFT navicular cuneiform joint. Joint spaces are otherwise maintained with scattered tiny marginal osteophytes. No erosions, soft tissue calcification or periostitis. No fracture. Tiny bilateral calcaneal spurs. IMPRESSION IMPRESSION: Bilateral olecranon bursitis, slightly greater on the LEFT. Nonspecific mild LEFT prepatellar/infrapat ellar soft tissue swelling. Mild degenerative change LEFT navicular cuneiform joint. Otherwise, no significant bone or articular abnormality. Change Management Lead: KAYLEY Transcribe Date/Time: Oct 18 2021 8:49A Dictated by : ARCELIA VASQUEZ DO This examination was interpreted and the report reviewed and electronically signed by: ARCELIA VASQUEZ DO on Oct 18 2021 10:11AM [facility] XR Foot - bilateral AP and L ateral and obliqueon 10-18-2021 * * *Final Report* * * DATE OF EXAM: Oct 17 2021 5:30PM WOX 5555 - XR FOOT 3V AP/LAT/OBL MENDEZ / PROCEDURE REASON: multiple diagnoses * * * * Physician Interpretation * * * * EXAMINATION: XR HAND 3V PA/LAT/OBL MENDEZ, XR FOOT 3V AP/LAT/OBL MENDEZ, XR ANKLE 3V AP/LAT/OBL MENDEZ, XR KNEE 4V AP/PA/LAT/MERCH MENDEZ, XR WRIST 3V PA/LAT/OBL MENDEZ, XR ELBOW 2V AP/LAT RT, XR ELBOW 2V AP/LAT LT PATIENT/TECHNOLOGIST PROVIDED HISTORY: chronic gout of multiple sites CLINICAL INFORMATION: 46 years old Male with G6PD deficiency. Chronic gout of multiple sites, unspecified cause. Polyarthralgia On colchicine therapy TECHNIQUE: XR HAND 3V PA/LAT/OBL MENDEZ, XR FOOT 3V AP/LAT/OBL MENDEZ, XR ANKLE 3V AP/LAT/OBL MENDEZ, XR KNEE 4V AP/PA/LAT/MERCH MENDEZ, XR WRIST 3V PA/LAT/OBL MENDEZ, XR ELBOW 2V AP/LAT RT, XR ELBOW 2V AP/LAT LT Laterality: BILATERAL Number of different views (projections): 2 views of each elbow, 3 views of each wrist, 3 views of each hand, 4 views of each knee, 3 views of each ankle and 3 views of each foot. COMPARISON: Foot radiographs 10/06/2018, 09/21/2018, LEFT hand radiograph 06/24/2018, RIGHT knee radiographs 07/22/2014 RESULT: Elbows: Mild soft tissue swelling over both olecranon suggesting olecranon bursitis slightly greater on the LEFT. No fracture. No elbow joint effusion. Elbow joint spaces are maintained. Small bilateral olecranon and lateral epicondyle enthesophytes. No erosions. Wrists and hands: No fracture. No erosions, soft tissue calcification or periostitis. Minimal degenerative change RIGHT first CMC joint. Joint spaces and carpal rows are otherwise maintained. Knees: Right knee: Bipartite patella. Joint spaces are maintained. No joint effusion. No fracture. No erosions. Left knee: Nonspecific mild prepatellar/infrapat ellar soft tissue swelling. Joint spaces are maintained. No joint effusion. No fracture. Extensor mechanism enthesophytes. Ankles and Feet: Mild degenerative change LEFT navicular cuneiform joint. Joint spaces are otherwise maintained with scattered tiny marginal osteophytes. No erosions, soft tissue calcification or periostitis. No fracture. Tiny bilateral calcaneal spurs. [email or web address]_U SE_DIVISION OF RADIOLOGY Provider, [facility] [place] - 10/18/2021 * * *Final Report* * * DATE OF EXAM: Oct 17 2021 5:30PM WOX 5555 - XR FOOT 3V AP/LAT/OBL MENDEZ / PROCEDURE REASON: multiple diagnoses * * * * Physician Interpretation * * * * EXAMINATION: XR HAND 3V PA/LAT/OBL MENDEZ, XR FOOT 3V AP/LAT/OBL MENDEZ, XR ANKLE 3V AP/LAT/OBL MENDEZ, XR KNEE 4V AP/PA/LAT/MERCH MENDEZ, XR WRIST 3V PA/LAT/OBL MENDEZ, XR ELBOW 2V AP/LAT RT, XR ELBOW 2V AP/LAT LT PATIENT/TECHNOLOGIST PROVIDED HISTORY: chronic gout of multiple sites CLINICAL INFORMATION: 46 years old Male with G6PD deficiency. Chronic gout of multiple sites, unspecified cause. Polyarthralgia On colchicine therapy TECHNIQUE: XR HAND 3V PA/LAT/OBL MENDEZ, XR FOOT 3V AP/LAT/OBL MENDEZ, XR ANKLE 3V AP/LAT/OBL MENDEZ, XR KNEE 4V AP/PA/LAT/MERCH MENDEZ, XR WRIST 3V PA/LAT/OBL MENDEZ, XR ELBOW 2V AP/LAT RT, XR ELBOW 2V AP/LAT LT Laterality: BILATERAL Number of different views (projections): 2 views of each elbow, 3 views of each wrist, 3 views of each hand, 4 views of each knee, 3 views of each ankle and 3 views of each foot. COMPARISON: Foot radiographs 10/06/2018, 09/21/2018, LEFT hand radiograph 06/24/2018, RIGHT knee radiographs 07/22/2014 RESULT: Elbows: Mild soft tissue swelling over both olecranon suggesting olecranon bursitis slightly greater on the LEFT. No fracture. No elbow joint effusion. Elbow joint spaces are maintained. Small bilateral olecranon and lateral epicondyle enthesophytes. No erosions. Wrists and hands: No fracture. No erosions, soft tissue calcification or periostitis. Minimal degenerative change RIGHT first CMC joint. Joint spaces and carpal rows are otherwise maintained. Knees: Right knee: Bipartite patella. Joint spaces are maintained. No joint effusion. No fracture. No erosions. Left knee: Nonspecific mild prepatellar/infrapat ellar soft tissue swelling. Joint spaces are maintained. No joint effusion. No fracture. Extensor mechanism enthesophytes. Ankles and Feet: Mild degenerative change LEFT navicular cuneiform joint. Joint spaces are otherwise maintained with scattered tiny marginal osteophytes. No erosions, soft tissue calcification or periostitis. No fracture. Tiny bilateral calcaneal spurs. IMPRESSION IMPRESSION: Bilateral olecranon bursitis, slightly greater on the LEFT. Nonspecific mild LEFT prepatellar/infrapat ellar soft tissue swelling. Mild degenerative change LEFT navicular cuneiform joint. Otherwise, no significant bone or articular abnormality. Change Management Lead: [facility] Transcribe Date/Time: Oct 18 2021 8:49A Dictated by : ARCELIA VASQUEZ DO This examination was interpreted and the report reviewed and electronically signed by: ARCELIA VASQUEZ DO on Oct 18 2021 10:11AM [facility] XR Hand - bilateral PA and L ateral and Obliqueon 10-18-2021 * * *Final Report* * * DATE OF EXAM: Oct 17 2021 5:30PM WOX 5556 - XR HAND 3V PA/LAT/OBL MENDEZ / PROCEDURE REASON: multiple diagnoses * * * * Physician Interpretation * * * * EXAMINATION: XR HAND 3V PA/LAT/OBL MENDEZ, XR FOOT 3V AP/LAT/OBL MENDEZ, XR ANKLE 3V AP/LAT/OBL MENDEZ, XR KNEE 4V AP/PA/LAT/MERCH MENDEZ, XR WRIST 3V PA/LAT/OBL MENDEZ, XR ELBOW 2V AP/LAT RT, XR ELBOW 2V AP/LAT LT PATIENT/TECHNOLOGIST PROVIDED HISTORY: chronic gout of multiple sites CLINICAL INFORMATION: 46 years old Male with G6PD deficiency. Chronic gout of multiple sites, unspecified cause. Polyarthralgia On colchicine therapy TECHNIQUE: XR HAND 3V PA/LAT/OBL MENDEZ, XR FOOT 3V AP/LAT/OBL MENDEZ, XR ANKLE 3V AP/LAT/OBL MENDEZ, XR KNEE 4V AP/PA/LAT/MERCH MENDEZ, XR WRIST 3V PA/LAT/OBL MENDEZ, XR ELBOW 2V AP/LAT RT, XR ELBOW 2V AP/LAT LT Laterality: BILATERAL Number of different views (projections): 2 views of each elbow, 3 views of each wrist, 3 views of each hand, 4 views of each knee, 3 views of each ankle and 3 views of each foot. COMPARISON: Foot radiographs 10/06/2018, 09/21/2018, LEFT hand radiograph 06/24/2018, RIGHT knee radiographs 07/22/2014 RESULT: Elbows: Mild soft tissue swelling over both olecranon suggesting olecranon bursitis slightly greater on the LEFT. No fracture. No elbow joint effusion. Elbow joint spaces are maintained. Small bilateral olecranon and lateral epicondyle enthesophytes. No erosions. Wrists and hands: No fracture. No erosions, soft tissue calcification or periostitis. Minimal degenerative change RIGHT first CMC joint. Joint spaces and carpal rows are otherwise maintained. Knees: Right knee: Bipartite patella. Joint spaces are maintained. No joint effusion. No fracture. No erosions. Left knee: Nonspecific mild prepatellar/infrapat ellar soft tissue swelling. Joint spaces are maintained. No joint effusion. No fracture. Extensor mechanism enthesophytes. Ankles and Feet: Mild degenerative change LEFT navicular cuneiform joint. Joint spaces are otherwise maintained with scattered tiny marginal osteophytes. No erosions, soft tissue calcification or periostitis. No fracture. Tiny bilateral calcaneal spurs. [email or web address] _DIVISION OF RADIOLOGY Provider, [facility] [place] - 10/18/2021 * * *Final Report* * * DATE OF EXAM: Oct 17 2021 5:30PM WOX 5556 - XR HAND 3V PA/LAT/OBL MENDEZ / PROCEDURE REASON: multiple diagnoses * * * * Physician Interpretation * * * * EXAMINATION: XR HAND 3V PA/LAT/OBL MENDEZ, XR FOOT 3V AP/LAT/OBL MENDEZ, XR ANKLE 3V AP/LAT/OBL MENDEZ, XR KNEE 4V AP/PA/LAT/MERCH MENDEZ, XR WRIST 3V PA/LAT/OBL MENDEZ, XR ELBOW 2V AP/LAT RT, XR ELBOW 2V AP/LAT LT PATIENT/TECHNOLOGIST PROVIDED HISTORY: chronic gout of multiple sites CLINICAL INFORMATION: 46 years old Male with G6PD deficiency. Chronic gout of multiple sites, unspecified cause. Polyarthralgia On colchicine therapy TECHNIQUE: XR HAND 3V PA/LAT/OBL MENDEZ, XR FOOT 3V AP/LAT/OBL MENDEZ, XR ANKLE 3V AP/LAT/OBL MENDEZ, XR KNEE 4V AP/PA/LAT/MERCH MENDEZ, XR WRIST 3V PA/LAT/OBL MENDEZ, XR ELBOW 2V AP/LAT RT, XR ELBOW 2V AP/LAT LT Laterality: BILATERAL Number of different views (projections): 2 views of each elbow, 3 views of each wrist, 3 views of each hand, 4 views of each knee, 3 views of each ankle and 3 views of each foot. COMPARISON: Foot radiographs 10/06/2018, 09/21/2018, LEFT hand radiograph 06/24/2018, RIGHT knee radiographs 07/22/2014 RESULT: Elbows: Mild soft tissue swelling over both olecranon suggesting olecranon bursitis slightly greater on the LEFT. No fracture. No elbow joint effusion. Elbow joint spaces are maintained. Small bilateral olecranon and lateral epicondyle enthesophytes. No erosions. Wrists and hands: No fracture. No erosions, soft tissue calcification or periostitis. Minimal degenerative change RIGHT first CMC joint. Joint spaces and carpal rows are otherwise maintained. Knees: Right knee: Bipartite patella. Joint spaces are maintained. No joint effusion. No fracture. No erosions. Left knee: Nonspecific mild prepatellar/infrapat ellar soft tissue swelling. Joint spaces are maintained. No joint effusion. No fracture. Extensor mechanism enthesophytes. Ankles and Feet: Mild degenerative change LEFT navicular cuneiform joint. Joint spaces are otherwise maintained with scattered tiny marginal osteophytes. No erosions, soft tissue calcification or periostitis. No fracture. Tiny bilateral calcaneal spurs. IMPRESSION IMPRESSION: Bilateral olecranon bursitis, slightly greater on the LEFT. Nonspecific mild LEFT prepatellar/infrapat ellar soft tissue swelling. Mild degenerative change LEFT navicular cuneiform joint. Otherwise, no significant bone or articular abnormality. [facility] Transcribe Date/Time: Oct 18 2021 8:49A Dictated by : ARCELIA VASQUEZ DO This examination was interpreted and the report reviewed and electronically signed by: ARCELIA VASQUEZ DO on Oct 18 2021 10:11AM EST [facility] XR Knee - bilateral 4 Viewso n 10-18-2021 * * *Final Report* * * DATE OF EXAM: Oct 17 2021 5:30PM WOX 5618 - XR KNEE 4V AP/PA/LAT/[facility] MENDEZ / PROCEDURE REASON: multiple diagnoses * * * * Physician Interpretation * * * * EXAMINATION: XR HAND 3V PA/LAT/OBL MENDEZ, XR FOOT 3V AP/LAT/OBL MENDEZ, XR ANKLE 3V AP/LAT/OBL MENDEZ, XR KNEE 4V AP/PA/LAT/MERCH MENDEZ, XR WRIST 3V PA/LAT/OBL MENDEZ, XR ELBOW 2V AP/LAT RT, XR ELBOW 2V AP/LAT LT PATIENT/TECHNOLOGIST PROVIDED HISTORY: chronic gout of multiple sites CLINICAL INFORMATION: 46 years old Male with G6PD deficiency. Chronic gout of multiple sites, unspecified cause. Polyarthralgia On colchicine therapy TECHNIQUE: XR HAND 3V PA/LAT/OBL MENDEZ, XR FOOT 3V AP/LAT/OBL MENDEZ, XR ANKLE 3V AP/LAT/OBL MENDEZ, XR KNEE 4V AP/PA/LAT/MERCH MENDEZ, XR WRIST 3V PA/LAT/OBL MENDEZ, XR ELBOW 2V AP/LAT RT, XR ELBOW 2V AP/LAT LT Laterality: BILATERAL Number of different views (projections): 2 views of each elbow, 3 views of each wrist, 3 views of each hand, 4 views of each knee, 3 views of each ankle and 3 views of each foot. COMPARISON: Foot radiographs 10/06/2018, 09/21/2018, LEFT hand radiograph 06/24/2018, RIGHT knee radiographs 07/22/2014 RESULT: Elbows: Mild soft tissue swelling over both olecranon suggesting olecranon bursitis slightly greater on the LEFT. No fracture. No elbow joint effusion. Elbow joint spaces are maintained. Small bilateral olecranon and lateral epicondyle enthesophytes. No erosions. Wrists and hands: No fracture. No erosions, soft tissue calcification or periostitis. Minimal degenerative change RIGHT first CMC joint. Joint spaces and carpal rows are otherwise maintained. Knees: Right knee: Bipartite patella. Joint spaces are maintained. No joint effusion. No fracture. No erosions. Left knee: Nonspecific mild prepatellar/infrapat ellar soft tissue swelling. Joint spaces are maintained. No joint effusion. No fracture. Extensor mechanism enthesophytes. Ankles and Feet: Mild degenerative change LEFT navicular cuneiform joint. Joint spaces are otherwise maintained with scattered tiny marginal osteophytes. No erosions, soft tissue calcification or periostitis. No fracture. Tiny bilateral calcaneal spurs. ZZZ_DO_NOT_U SE_DIVISION OF RADIOLOGY Provider, [facility] [place] - 10/18/2021 * * *Final Report* * * DATE OF EXAM: Oct 17 2021 5:30PM WOX 5618 - XR KNEE 4V AP/PA/LAT/MERCH MENDEZ / PROCEDURE REASON: multiple diagnoses * * * * Physician Interpretation * * * * EXAMINATION: XR HAND 3V PA/LAT/OBL MENDEZ, XR FOOT 3V AP/LAT/OBL MENDEZ, XR ANKLE 3V AP/LAT/OBL MENDEZ, XR KNEE 4V AP/PA/LAT/MERCH MENDEZ, XR WRIST 3V PA/LAT/OBL MENDEZ, XR ELBOW 2V AP/LAT RT, XR ELBOW 2V AP/LAT LT PATIENT/TECHNOLOGIST PROVIDED HISTORY: chronic gout of multiple sites CLINICAL INFORMATION: 46 years old Male with G6PD deficiency. Chronic gout of multiple sites, unspecified cause. Polyarthralgia On colchicine therapy TECHNIQUE: XR HAND 3V PA/LAT/OBL MENDEZ, XR FOOT 3V AP/LAT/OBL MENDEZ, XR ANKLE 3V AP/LAT/OBL MENDEZ, XR KNEE 4V AP/PA/LAT/MERCH MENDEZ, XR WRIST 3V PA/LAT/OBL MENDEZ, XR ELBOW 2V AP/LAT RT, XR ELBOW 2V AP/LAT LT Laterality: BILATERAL Number of different views (projections): 2 views of each elbow, 3 views of each wrist, 3 views of each hand, 4 views of each knee, 3 views of each ankle and 3 views of each foot. COMPARISON: Foot radiographs 10/06/2018, 09/21/2018, LEFT hand radiograph 06/24/2018, RIGHT knee radiographs 07/22/2014 RESULT: Elbows: Mild soft tissue swelling over both olecranon suggesting olecranon bursitis slightly greater on the LEFT. No fracture. No elbow joint effusion. Elbow joint spaces are maintained. Small bilateral olecranon and lateral epicondyle enthesophytes. No erosions. Wrists and hands: No fracture. No erosions, soft tissue calcification or periostitis. Minimal degenerative change RIGHT first CMC joint. Joint spaces and carpal rows are otherwise maintained. Knees: Right knee: Bipartite patella. Joint spaces are maintained. No joint effusion. No fracture. No erosions. Left knee: Nonspecific mild prepatellar/infrapat ellar soft tissue swelling. Joint spaces are maintained. No joint effusion. No fracture. Extensor mechanism enthesophytes. Ankles and Feet: Mild degenerative change LEFT navicular cuneiform joint. Joint spaces are otherwise maintained with scattered tiny marginal osteophytes. No erosions, soft tissue calcification or periostitis. No fracture. Tiny bilateral calcaneal spurs. IMPRESSION IMPRESSION: Bilateral olecranon bursitis, slightly greater on the LEFT. Nonspecific mild LEFT prepatellar/infrapat ellar soft tissue swelling. Mild degenerative change LEFT navicular cuneiform joint. Otherwise, no significant bone or articular abnormality. Change Management Lead: [facility] Transcribe Date/Time: Oct 18 2021 8:49A Dictated by : ARCELIA VASQUEZ DO This examination was interpreted and the report reviewed and electronically signed by: ARCELIA VASQUEZ DO on Oct 18 2021 10:11AM [facility] XR Wrist - bilateral PA and Lateral and Obliqueon 10-18-2021 * * *Final Report* * * DATE OF EXAM: Oct 17 2021 5:30PM WOX 5621 - XR WRIST 3V PA/LAT/OBL MENDEZ / PROCEDURE REASON: multiple diagnoses * * * * Physician Interpretation * * * * EXAMINATION: XR HAND 3V PA/LAT/OBL MENDEZ, XR FOOT 3V AP/LAT/OBL MENDEZ, XR ANKLE 3V AP/LAT/OBL MENDEZ, XR KNEE 4V AP/PA/LAT/MERCH MENDEZ, XR WRIST 3V PA/LAT/OBL MENDEZ, XR ELBOW 2V AP/LAT RT, XR ELBOW 2V AP/LAT LT PATIENT/TECHNOLOGIST PROVIDED HISTORY: chronic gout of multiple sites CLINICAL INFORMATION: 46 years old Male with G6PD deficiency. Chronic gout of multiple sites, unspecified cause. Polyarthralgia On colchicine therapy TECHNIQUE: XR HAND 3V PA/LAT/OBL MENDEZ, XR FOOT 3V AP/LAT/OBL MENDEZ, XR ANKLE 3V AP/LAT/OBL MENDEZ, XR KNEE 4V AP/PA/LAT/MERCH MENDEZ, XR WRIST 3V PA/LAT/OBL MENDEZ, XR ELBOW 2V AP/LAT RT, XR ELBOW 2V AP/LAT LT Laterality: BILATERAL Number of different views (projections): 2 views of each elbow, 3 views of each wrist, 3 views of each hand, 4 views of each knee, 3 views of each ankle and 3 views of each foot. COMPARISON: Foot radiographs 10/06/2018, 09/21/2018, LEFT hand radiograph 06/24/2018, RIGHT knee radiographs 07/22/2014 RESULT: Elbows: Mild soft tissue swelling over both olecranon suggesting olecranon bursitis slightly greater on the LEFT. No fracture. No elbow joint effusion. Elbow joint spaces are maintained. Small bilateral olecranon and lateral epicondyle enthesophytes. No erosions. Wrists and hands: No fracture. No erosions, soft tissue calcification or periostitis. Minimal degenerative change RIGHT first CMC joint. Joint spaces and carpal rows are otherwise maintained. Knees: Right knee: Bipartite patella. Joint spaces are maintained. No joint effusion. No fracture. No erosions. Left knee: Nonspecific mild prepatellar/infrapat ellar soft tissue swelling. Joint spaces are maintained. No joint effusion. No fracture. Extensor mechanism enthesophytes. Ankles and Feet: Mild degenerative change LEFT navicular cuneiform joint. Joint spaces are otherwise maintained with scattered tiny marginal osteophytes. No erosions, soft tissue calcification or periostitis. No fracture. Tiny bilateral calcaneal spurs. ZZZ_DO_NOT_U SE_DIVISION OF RADIOLOGY Provider, [facility] [place] - 10/18/2021 * * *Final Report* * * DATE OF EXAM: Oct 17 2021 5:30PM WOX 5621 - XR WRIST 3V PA/LAT/OBL MENDEZ / PROCEDURE REASON: multiple diagnoses * * * * Physician Interpretation * * * * EXAMINATION: XR HAND 3V PA/LAT/OBL MENDEZ, XR FOOT 3V AP/LAT/OBL MENDEZ, XR ANKLE 3V AP/LAT/OBL MENDEZ, XR KNEE 4V AP/PA/LAT/MERCH MENDEZ, XR WRIST 3V PA/LAT/OBL MENDEZ, XR ELBOW 2V AP/LAT RT, XR ELBOW 2V AP/LAT LT PATIENT/TECHNOLOGIST PROVIDED HISTORY: chronic gout of multiple sites CLINICAL INFORMATION: 46 years old Male with G6PD deficiency. Chronic gout of multiple sites, unspecified cause. Polyarthralgia On colchicine therapy TECHNIQUE: XR HAND 3V PA/LAT/OBL MENDEZ, XR FOOT 3V AP/LAT/OBL MENDEZ, XR ANKLE 3V AP/LAT/OBL MENDEZ, XR KNEE 4V AP/PA/LAT/MERCH MENDEZ, XR WRIST 3V PA/LAT/OBL MENDEZ, XR ELBOW 2V AP/LAT RT, XR ELBOW 2V AP/LAT LT Laterality: BILATERAL Number of different views (projections): 2 views of each elbow, 3 views of each wrist, 3 views of each hand, 4 views of each knee, 3 views of each ankle and 3 views of each foot. COMPARISON: Foot radiographs 10/06/2018, 09/21/2018, LEFT hand radiograph 06/24/2018, RIGHT knee radiographs 07/22/2014 RESULT: Elbows: Mild soft tissue swelling over both olecranon suggesting olecranon bursitis slightly greater on the LEFT. No fracture. No elbow joint effusion. Elbow joint spaces are maintained. Small bilateral olecranon and lateral epicondyle enthesophytes. No erosions. Wrists and hands: No fracture. No erosions, soft tissue calcification or periostitis. Minimal degenerative change RIGHT first CMC joint. Joint spaces and carpal rows are otherwise maintained. Knees: Right knee: Bipartite patella. Joint spaces are maintained. No joint effusion. No fracture. No erosions. Left knee: Nonspecific mild prepatellar/infrapat ellar soft tissue swelling. Joint spaces are maintained. No joint effusion. No fracture. Extensor mechanism enthesophytes. Ankles and Feet: Mild degenerative change LEFT navicular cuneiform joint. Joint spaces are otherwise maintained with scattered tiny marginal osteophytes. No erosions, soft tissue calcification or periostitis. No fracture. Tiny bilateral calcaneal spurs. IMPRESSION IMPRESSION: Bilateral olecranon bursitis, slightly greater on the LEFT. Nonspecific mild LEFT prepatellar/infrapat ellar soft tissue swelling. Mild degenerative change LEFT navicular cuneiform joint. Otherwise, no significant bone or articular abnormality. Change Management Lead: PSCB Transcribe Date/Time: Oct 18 2021 8:49A Dictated by : ARCELIA VASQUEZ DO This examination was interpreted and the report reviewed and electronically signed by: ARCELIA VASQUEZ DO on Oct 18 2021 10:11AM EST [facility] No Panel Informationon 10-17 Radiology Study observation (narrative) [facility] ANES POSTPROC EVALon 021 ANES POSTPROC EVAL HNO ID: [id number] Author: Esteban Miramontes Service: ? Author Type: Physician Type: Anesthesia Postprocedure Evaluation Filed: 06/12/2020 9:40 AM Note Text: POST ANESTHESIA EVALUATION NOTE : 1975 Procedure Summary Date: 06/12/20 Room / [facility] Anesthesia Start: 829 Anesthesia Stop: 906 Procedures: COLONOSCOPY, FLEXIBLE W/REMOVAL TUMOR(S), POLYP(S), OR OTHER LESION(S) BY SNARE TECHNIQUE (N/A ) COLONOSCOPY (N/A ) Diagnosis: Diverticulitis Surgeons: Matt Morris Responsible Provider: Esteban Miramontes Anesthesia Type: MAC ASA Status: 3 Anesthesia Type: MAC Last vitals Vitals Value Taken Time BP 130/82 06/12/20929 Temp 37 ?C (98.6 ?F) 06/12/20929 Pulse 50 06/12/20929 Resp 16 06/12/20929 SpO2 96 % 06/12/20929 Post Anesthesia Patient Status Patient Evaluation: PACU. PACU/ICU Patient Condition: stable. Anticipated Disposition: phase 2 then home. Neurological Status: aware and responsive. Pulmonary Status: breathing comfortably on room air Airway Control: returned to baseline unsupported. Cardiovascular Status: stable. Pain Management: clinically adequate - multimodal analgesia pain management approach Postoperative Hydration: acceptable. Intraoperative Events: no significant anesthesia events Post Operative Nausea/Vomiting Status: Anesthetic Observations: no significant anesthetic observations Recommendation: continue current plan of care. SIGNATURE: Esteban Miramontes MD PATIENT NAME: Basim Alexandra DATE: June 12, 2020 TIME: 9:39 AM CSN: [id number] [facility] ANES PRE-OPon 06-12-2020 ANES PRE-OP HNO ID: [id number] Author: Esteban Miramontes Service: ? Author Type: Physician Type: Anesthesia Preprocedure Evaluation Filed: 06/12/2020 7:42 AM Note Text: ANESTHESIOLOGY DAY OF SURGERY NOTE : 1975 Procedure(s) (LRB): COLONOSCOPY (N/A) Surgeon(s): Matt Morris Estimated body mass index is 29.29 kg/m? as calculated from the following: Height as of 06/09/20: 185.4 cm (6' 1"). Weight as of 06/09/20: 100.7 kg (222 lb). Most recent hematocrit and potassium results: Hematocrit 44.5 12/17/2019 Potassium 4.4 12/17/2019 Relevant Problems CARDIO (+) Coronary artery disease due to lipid rich plaque (+) Essential hypertension with goal blood pressure less than 140/90 GI (+) Gastroesophageal reflux disease without esophagitis NEURO-PSYCH (+) History of ST elevation myocardial infarction (STEMI) Other (+) Chronic gout of multiple sites I - PHYSICAL EVALUATION AIRWAY Patient intubated: No. Tracheostomy tube not present Mallampati: III. TM distance: >3 FB. Neck ROM: full ROM without neurological symptoms. Mouth opening: adequate. Additional exam findings: no II - ANESTHESIA PLAN ASA Score: 3 Anesthetic Plan: MAC NPO Status: adequate Monitoring plan: standard ASA. Postoperative analgesic plan: parenteral or oral opioids and multimodal analgesia. Anesthetic Risks, Benefits, Alternatives, Personnel Discussed. Consent obtained from: patient. Patient / Surrogate agrees to blood products: blood products not planned Significant changes in the patient condition since the History and Physical, not otherwise documented in primary service progress note: no. Vitals Value Taken Time BP 160/100 06/12/20726 Pulse Resp 16 06/12/20726 Temp 36.2 ?C (97.2 ?F) 06/12/20726 SpO2 99 % 06/12/20726 Facility-Administere d Medications as of 06/12/2020 Medication Dose Route Frequency - NaCl 0.9% iv infusion 30 mL/hr INTRAVENOUS CONTINUOUS Outpatient Medications as of 06/12/2020 Medication Sig - pantoprazole DR (PROTONIX) 40 mg tablet TAKE 1 TABLET DAILY BEFORE BREAKFAST. TAKE ON EMPTY STOMACH, ONE HALF HOUR BEFORE A MEAL - atorvastatin (LIPITOR) 20 mg tablet Take 1 tablet by mouth once daily. For cholesterol. - metoprolol succinate ER (TOPROL XL) 25 mg 24 hr tablet Take 0.5 tablets by mouth once daily. - ticagrelor (BRILINTA) 90 mg tablet Take 1 tablet by mouth twice daily. - febuxostat (ULORIC) 40 mg tab TAKE 1 TABLET ONCE DAILY - sour monsalve extract (TART MONSALVE EXTRACT ORAL) Take 1,200 mg by mouth twice daily. - selenium sulfide 2.3 % sham lather for 10min and rinse nightly for 7-10 days - or apply for 24hrs weekly for several months - aspirin, enteric coated (ASPIR-81) 81 mg EC tablet Take 1 tablet by mouth once daily. - lisinopril 2.5 mg tablet Take 1 tablet by mouth once daily. - cetirizine (ZYRTEC) 10 mg tablet Take 1 tablet by mouth once daily. - IBUPROFEN 200 MG CAP take 2-3 as needed I have interviewed and examined the patient. I have reviewed the medical record and/or the pre-anesthesia evaluation, pertinent labs, and test results. This contains updated information obtained within 48 hours of Surgery/Procedure. SIGNATURE: Esteban Miramontes MD PATIENT NAME: Basim Alexandra DATE: June 12, 2020 TIME: 7:42 AM CSN: [id number] [facility] HISTORY PHYSICALon HISTORY PHYSICAL HNO ID: [id number] Author: Matt Morris Service: General Surgery Author Type: Physician Type: HANDP Filed: 06/12/2020 7:37 AM Note Text: Basim Alexandra a 44 year old male who is a consultation requested by Salvador Chapa. MIKAEL, for an opinion regarding diverticulosis. My final recommendations will be communicated back to the requesting provider by way of shared Medical record. The patient has not been seen previously. He denies a family hitsory of colon cancer. His father this year of pancreatic cancer. The patient was seen by Salvador earlier today, leading to this consultation. That note has been reviewed and part as follows: In January 2020 he was seen at the [facility] emergency department for an episode of diverticulitis. In 2016 he was diagnosed with diverticulosis. Has not had a flare or an episode of diverticulitis. Was recommended to have a follow-up GI consultation and colonoscopy. He has not scheduled that at this time. Needs consult placed. CT abdomen/pelvis 01/10/20: FINDINGS: The visualized lung bases are unremarkable. Coronary artery calcification. There is decreased attenuation of the liver consistent with steatosis. Normal gallbladder and extrahepatic biliary system. Normal spleen. Normal pancreas. Normal bilateral adrenal glands. Normal right kidney. Normal left kidney. Normal visualized stomach. Normal small intestine. There is diverticulosis, with thickening of the descending colon wall, and pericolonic inflammation changes consistent with acute diverticulitis. Sigmoid diverticulosis. The appendix is visualized and appears normal. Normal abdominal aorta. Normal inferior vena cava. There is borderline retroperitoneal lymphadenopathy with enlarged nodes no greater than 10mm in the short axis diameter. Normal urinary bladder. There is a right-sided inguinal hernia containing adipose tissue. Normal osseous structures. IMPRESSION: Findings in keeping with diverticulitis of the descending colon with the pericolonic inflammatory changes. Presenting complaint: The patient presents today reporting that he was first time diagnosed with diverticulitis in May,. Goes on to stating "the most recent episode the pain was about a 7-8/10 and as soon as I started the antibiotic I felt fine". He believes he has had less severe or light episodes in addition to the two confirmed by CT. Denies upper GI complaints. Having 1-2 bowel movements a day. No significant change with the episode. Reporting having a lot of flatulence the last few months. We discussed that it isn't an indication of something bad. Discussed possible lactose intolerance. Uses FF /2 and 1/2 in his coffee. Occasional ice cream. Not much milk. He does take Brilinta. We discussed that medication has caused issues with flatulence in other patients. The patient has an appointment with Dr. Morris regarding a hernia. He will have Dr. Morris do his procedure. REVIEW OF SYSTEMS: GENERAL: No weight loss, malaise or fevers RESPIRATORY: Negative for cough, hemoptysis, wheezing, COPD, dyspnea or shortness of breath CARDIOVASCULAR: Hypertension, HLD, STEMI, cardiac stent. Denies chest pain or BELLAMY. GI: As reported above. MUSCULOSKELETAL: Negative for new or worening joint pain or swelling, back pain or muscle pain SKIN: Negative for lesions, rash, and itching PSYCH: Positive for anxiety: HEMATOLOGY/LYMPHOLOG Y On Brilinta ENDOCRINE: Negative for thyroid or diabetes. NEURO: No history of headaches, syncope, paralysis, seizures or tremors All other reviewed and negative other than HPI. PAST MEDICAL HISTORY PAST SURGICAL HISTORY FAMILY HISTORY CURRENT MEDICATIONS SOCIAL HISTORY: Patient is . He has never smoked. Basim reports his alcohol use as everyday having 2-3 beers. PHYSICAL EXAMINATION: Blood pressure 100/58, pulse 63, height 185.4 cm (6' 1"), weight 101.2 kg (223 lb), SpO2 97 %. General Appearance: Well appearing, alert, in no acute distress, well-hydrated, well nourished. Skin: Skin color, texture, turgor normal, no suspicious rashes or lesions. Head: Normocephalic, no abnormalities. Eyes: Anicteric sclera. Neck: Supple, no adenopathy; thyroid symmetric, normal size, no bruits. Lungs: Lungs clear to auscultation. No wheezing, rhonchi, rales. Heart: RRR without murmur. Abdomen: Abdomen soft, non-tender. Bowel sounds normal. No masses, organomegaly. Extremities: No deformities, edema. Neurologic: Gait normal. Sensation grossly intact. Impression: Diverticulosis with episodes of diverticulitis 2)anxiety Plan: This patient will be scheduled for a colonoscopy using MAC. He will be using NuLytely, or similar solution, as the prep. The preparation, as well as the procedure, has been explained in detail. The risks, benefits, anticipated outcomes and possible complications, including failure to complete the endoscopy and perforation, were mentioned. I explained the procedure in understandable terms and the patient was given printed material concerning the planned procedure. The patient had the opportunity to ask questions concerning the planned procedure. The patient freely consents to the planned procedure. The patient may not need to hold Brilinta. He will discuss it with Dr. Morris when he sees him regarding the hernia. The patient is scheduled for a procedure at the [facility]. I have explained that his/her health and safety, as well as that of our staff is important. The risk of exposure to, or potential harm posed by the COVID-19 virus with having a procedure at this time is as minimal as possible. Measures are being taken to minimize any potential risk of infection. I have explained that he/she will see that the staff will be wearing masks and gloves. The patient's temperature will be taken on arrival, they will be asked a series of questions to reassess current wellness, and asked to use hand mds coordinator foam. The bed areas are cleaned and the procedure rooms are thoroughly disinfected between patients. Procedure rooms will be alternated to give the disinfection more than enough time to ensure adequate protection for all involved. We is aware that he will need a COVID test 2-3 days prior to the procedure. The patient is asked to call with any questions for concerns, or should there be any change in health status between now and the scheduled procedure. I have personally interviewed and examined this patient. I have read the information the B OPERATOR documented in this encounter. I spent 25 minutes in the visit, with more than 50% of the total [id number] time of the visit in counseling / coordination of care. Carmen Zamorano RN SURGICAL GARMENT ASSEMBLER.[facility] HISTORY PHYSICAL HNO ID: [id number] Author: Matt Morris Service: General Surgery Author Type: Physician Type: HANDP Filed: 06/12/2020 7:36 AM Note Text: HISTORY AND PHYSICAL ? Basim Alexandra 1975 ? ? REFERRING PHYSICIAN: Salvador Chapa (Dnp.Stack Yield Engineer),* ? CHIEF COMPLAINT: Consult (Consult Rt inguinal hernia) ? HPI: Basim is a 44 year old male with a complaint of discomfort no obvious bulge in his right inguinal region. The patient notes discomfort in this area with helping his mother move over the past 3 weeks. He does not really have significant pain but notes a sensation that made him remember his initial feeling when he had a left inguinal hernia. ? He does not want to have the hernia repaired for a while but just wants to know if this is what he has going on. He is scheduled for colonoscopy in the next month and a half. ? The patient notes no symptoms of bowel obstruction and denies nausea or vomiting. The patient was seen by his primary care physician who felt the patient has a hernia. Basim was referred for evaluation and treatment. ? The patient is being seen by me today at the request of Dr. Stevan Bridges MD for my opinion and advice regarding likely right inguinal hernia. ? ? PAST MEDICAL HISTORY PAST MEDICAL HISTORY Diagnosis Date - Anxiety 03/29/2015 - Coronary artery disease due to lipid rich plaque 08/19/2017 ? Seeing Dr. Partida - Diverticulosis of large intestine without hemorrhage 06/13/2016 - Equinus deformity of foot 03/30/2013 - Essential hypertension with goal blood pressure less than 140/90 09/28/2015 - Gastroesophageal reflux disease without esophagitis 03/29/2015 - H/O heart artery stent 05/17/2016 ? 05/2016: Mid Circ and Obtuse marginal - History of ST elevation myocardial infarction (STEMI) 05/17/2016 ? 05/15/2016, seeing Dr. Partida - Inguinal hernia of left side without obstruction or gangrene 09/02/2017 ? Very mild on exam 08/2017 possible early start of. - Mixed hyperlipidemia 03/29/2015 - Obesity ? - Over weight 02/03/2009 - Plantar fasciitis, bilateral 11/10/2018 - Seasonal allergies 04/18/2010 - Stress reaction 02/19/2017 - Well adult exam 04/09/2016 ? last done: 09/01/2017 ? ? PAST SURGICAL HISTORY PAST SURGICAL HISTORY Procedure Laterality Date - 2D ECHO (EXEP) ? 05/15/2016 ? EF=45% mod systolic dys, mod papillary muscl dys of MV, mod PA. - PAST SURGICAL HISTORY OF ? 05/15/2016 ? Stent to Circ and obtuse marginal - REPAIR ING HERNIA,5+Y/O,REDUCIB L ? 06/15/2018 ? Hernia repair, inguinal - REPAIR INGUINAL HERNIA Left 06/15/2018 - STRESS TEST ? 02/05/2018 ? normal stress echo - TOOTH EXTRACTION ? ? ? wisdom teeth ? ? ? CURRENT MEDICATIONS Current Outpatient Medications Medication Sig - febuxostat (ULORIC) 40 mg tab TAKE 1 TABLET ONCE DAILY - colchicine 0.6 mg tablet TAKE 1 TABLET EVERY 72 HOURS - pantoprazole DR (PROTONIX) 40 mg tablet TAKE 1 TABLET DAILY BEFORE BREAKFAST. TAKE ON EMPTY STOMACH, ONE HALF HOUR BEFORE A MEAL - FLUoxetine (PROZAC) 10 mg capsule Take 1 capsule by mouth once daily. - sour monsalve extract (TART MONSALVE EXTRACT ORAL) Take 1,200 mg by mouth twice daily. - selenium sulfide 2.3 % sham lather for 10min and rinse nightly for 7-10 days - or apply for 24hrs weekly for several months - aspirin, enteric coated (ASPIR-81) 81 mg EC tablet Take 1 tablet by mouth once daily. - atorvastatin (LIPITOR) 20 mg tablet Take 1 tablet by mouth once daily. For cholesterol. - metoprolol succinate ER (TOPROL XL) 25 mg 24 hr tablet Take 0.5 tablets by mouth once daily. - lisinopril 2.5 mg tablet Take 1 tablet by mouth once daily. - ticagrelor (BRILINTA) 90 mg tablet Take 1 tablet by mouth twice daily. - cetirizine (ZYRTEC) 10 mg tablet Take 1 tablet by mouth once daily. - IBUPROFEN 200 MG CAP take 2-3 as needed ? No current facility-administere d medications for this visit. ? ? ALLERGIES: Erythromycin ? PERSONAL HISTORY: SOCIAL HISTORY Social History ? Tobacco Use - Smoking status: Never Smoker - Smokeless tobacco: Never Used Substance Use Topics - Alcohol use: Yes ? ? Alcohol/week: 40.0 - 60.0 standard drinks ? ? Types: 16 - 24 Cans of Beer (12oz) per week ? ? Frequency: 4 or more times a week ? ? Drinks per session: 3 or 4 ? ? Binge frequency: Monthly ? ? Comment: 3 BEERS DAILY - Drug use: No ? FAMILY HISTORY: FAMILY HISTORY FAMILY HISTORY Problem Relation Age of Onset - Pancreatic Cancer Father 79 - other (Afib) Father ? - Alzheimer's Disease Maternal Grandmother ? - Coronary Artery Disease Maternal Grandmother ? - Alzheimer's Disease Maternal Aunt ? - Diabetes Maternal Aunt ? ? maternal cousin DM1 - Coronary Artery Disease Maternal Grandfather ? ? early 50's - Coronary Artery Disease Other ? ? multiple maternal cousins with Stents - Depression Mother ? - Hyperlipidemia Mother ? - No Known Problems Sister ? ? ? REVIEW OF SYMPTOMS: The review of systems data was entered by the nurse and reviewed by me ? Nursing Notes: Evelia Leavitt RN 04/04/2020 2:33 PM Signed REVIEW OF SYSTEMS: General: The patient denies fatigue, denies weight loss, denies weight gain, denies feeling hot, and denies feelings of cold. Eyes: The patient denies glaucoma, denies eye injury/surgery, wears glasses or contacts. Ear/Nose/Throat: The patient notes allergies, notes hayfever, denies ear infections, and denies bloody noses. Cardiovascular: The patient denies chest pain, notes heart disease, denies high blood pressure,notes cardiac stent, notes prior heart attack, denies irregular heart beat, notes high cholesterol, denies poor circulation, denies heart failure, other cardiac issues, denies claudication, denies cold feet, denies peripheral arterial stent. Respiratory: The patient denies tuberculosis, notes pneumonia, denies frequent cough, denies pulmonary embolism, denies shortness of breath, and denies coughing up blood. Gastrointestinal: The patient denies difficulty swallowing, notes acid reflux, denies ulcers, denies vomiting, denies jaundice/hepatitis, denies gallbladder problems, denies black or tarry stools, denies hemorrhoids, denies bleeding from rectum, notes diverticulitis, denies constipation, denies diarrhea, denies loss of stool control, and notes hernias. Kidney/Bladder: The patient denies kidney stones, denies urine infections, and denies bloody urine. Skin: The patient denies a history of skin cancer, denies bleeding/changing moles, and denies a history of skin rash. Neurologic: The patient denies a history of epilepsy/convulsions , denies headaches, denies head/spinal injuries, and denies stroke/TIA. Psychiatric: The patient denies psychiatric medications, notes depression, and denies voices, denies substance abuse. Endocrine: The patient denies thyroid disorders, denies diabetes, and denies hormonal problems. Hematologic: The patient denies a history of bruising, denies bleeding, and denies anemia, denies blood clots. Infections: The patient denies a history of measles and mumps, denies rheumatic fever, and denies sexually transmitted diseases. Musculoskeletal: The patient denies back pain/injury, denies back problems, denies sciatica, denies knee/foot trouble, denies arthritis, or notes gout. ? ? When was patient's last Mammogram screening? N/A ? Last Colonoscopy: never ? Evelia Leavitt RN ? PHYSICAL EXAMINATION: ? General: The patient is 44 year old male, well nourished, well hydrated in no acute distress. The patient is oriented to time, place, and person. ? VITALS: Blood pressure 122/82, pulse 66, temperature (!) 35.6 ?C (96.1 ?F), height 185.4 cm (6' 1"), weight 101.1 kg (222 lb 12.8 oz), SpO2 99 %. Body mass index is 29.39 kg/m?. ? HEENT: Normal cephalic, ataumatic, pupils are equally round, sclera are anicteric, mucous membranes are moist, oropharynx is clear. Neck has no masses, asymmetry or lymphadenopathy. Thyroid is unremarkable. ? Respiratory: Clear to auscultation and percussion. Normal respiratory excursion and pattern. ? Cardiac: Examination is regular rate and rhythm. ? Abdominal exam: Soft, nontender, with no palpable masses. No hepatosplenomegaly. A small, reducible right inguinal hernia not noted on external palpation but noted with palpation at the external ring, no left inguinal or umbilical hernias are noted ? Rectal exam: Exam deferred ? Extremities: no clubbing, cyanosis or edema. No adenopathy. ? Other: ? ? LABORATORY VALUES: As Noted ? RADIOLOGIC STUDIES: As Noted ? intraoffice ultrasound demonstrated a small right inguinal hernia ? ? Assessment IMPRESSION: right inguinal hernia ? PLAN: The patient does not wish to have the hernia. Right now he would like to do it once he finishes helping his mother, likely in the next few months or in the spring. He is currently scheduled and planned to have colonoscopy probably in May. He had seen Anne-Marie Zamorano to have this arranged. ? My plan is to perform a open right inguinal hernia repair with mesh. The planned surgical procedure was discussed extensively with the patient. The risks, benefits, anticipated outcomes and possible complications were mentioned. Basim pillaiands that all hernia repair surgery has a chance of recurrence and/or chronic post operative pain. My staff has also explained the procedure in understandable terms and the patient was given the option to take printed material concerning the planned procedure. The patient had the opportunity to ask questions concerning the planned procedure. The patient freely consents to the planned procedure. ? The patient was offered a surgery/procedure at a [facility] facility. The surgeon/proceduralis t and patient have discussed in detail the risk of exposure to and/or potential harm posed by the COVID-19 virus with having a surgery/procedure at this time versus the risk of? delaying the surgery/procedure. It is not possible to know either the risk of delaying the surgery or procedure or chance of getting an infection with perfect accuracy, but a joint decision was made between the patient and the surgeon/proceduralis t ?to proceed at this time with the scheduled surgery/procedure as indicated on the consent form. ? ? ? My findings have been communicated to Dr. Stevan Bridges MD via shared medical record. This note will be forwarded to Dr. Stevan Bridges MD. ? Diagnoses: (K40.90) Inguinal hernia, right ? Anticipated CPT Code: open right inguinal hernia repair with mesh - 58079-778 ? Anticipated Anesthetic: MAC with local ? Patient weight: Blood pressure 122/82, pulse 66, temperature (!) 35.6 ?C (96.1 ?F), height 185.4 cm (6' 1"), weight 101.1 kg (222 lb 12.8 oz), SpO2 99 %. BMI: Body mass index is 29.39 kg/m?. ? Planned antibiotic: Ancef 2gm IVPB correctional maintenance technician to OR ? SCDs needed - Yes Return to Clinic: The patient is instructed to follow-up with me a few weeks prior to wanting to schedule the surgical procedure. ? Matt Morris MD ? [facility] HOSPon 04-11-2020 HOSP Patient:Basim Alexandra MRN: Height:6' 1"(1.854 m) Weight:222 lb (100.699 kg) Outpatient Medications as of 06/12/20: colchicine 0.6 mg tablet FLUoxetine (PROZAC) 10 mg capsule febuxostat (ULORIC) [address] (PROTONIX) 40 mg tablet sour monsalve extract (TART MONSALVE EXTRACT ORAL) selenium sulfide 2.3 % sham aspirin, enteric coated (ASPIR-81) 81 mg EC tablet atorvastatin (LIPITOR) 20 mg tablet metoprolol succinate ER (TOPROL XL) 25 mg 24 hr tablet lisinopril 2.5 mg tablet ticagrelor (BRILINTA) 90 mg tablet cetirizine (ZYRTEC) 10 mg tablet IBUPROFEN 200 MG CAP Admission/Clinic Administered Medications as of 06/12/20: NaCl 0.9% iv infusion Problem List: Over weight [E66.3] Seasonal allergies [J30.2] Equinus deformity of foot [M21.6X9] Mixed hyperlipidemia [E78.2] Anxiety [F41.9] Gastroesophageal reflux disease without esophagitis [K21.9] Essential hypertension with goal blood pressure less than 140/90 [I10] Well adult exam [Z00.00] History of ST elevation myocardial infarction (STEMI) [I25.2] H/O heart artery stent [Z95.5] Diverticulosis of large intestine without hemorrhage [K57.30] Current use of proton pump inhibitor [Z79.899] Stress reaction [F43.0] Coronary artery disease due to lipid rich plaque [I25.10, I25.83] Encounter for screening for diabetes mellitus [Z13.1] Inguinal hernia of left side without obstruction or gangrene [K40.90] Plantar fasciitis, bilateral [M72.2] Chronic gout of multiple sites [M1A.09X0] Allergies: Azithromycin Erythromycin Date Verified: 06/12/20 Lab Values No results within the last 30 days for the following basenames: K,HCT Progress Notes ([facility]): Phi Denise B OPERATOR 05/16/2020 10:29 AM Signed Last refill 11/08/19 Qty: 90 with 1 refill Last ov 03/30/20 No appt scheduled Phi Denise B OPERATOR [facility] Lab Report: Lipid Profileon 02-17-2017 Cholesterol 144 mg/dL Invalid Interpretation Code 200 [facility] Work Phone: [phone] HDL Cholesterol 52 mg/dL Invalid Interpretation Code [facility] Work Phone: [phone] LDL Cholesterol 48 mg/dL Invalid Interpretation Code 0-130 [facility] Work Phone: [phone] Triglyceride 222 mg/dL High [facility] Work Phone: [phone] very low density lipoproteins 44 mg/dL High 5-40 [facility] Work Phone: [phone] Lab Report: Liver Profileon 02-17-2017 Alanine aminotransferase (ALT) 28 U/L Invalid Interpretation Code 12-78 [facility] Work Phone: [phone] Albumin 3.9 g/dL Invalid Interpretation Code 3.4-5.0 [facility] Work Phone: [phone] Alkaline phosphatase (ALP) 59 U/L Invalid Interpretation Code 45-117 [facility] Work Phone: [phone] Aspartate aminotransferase (AST) 15 U/L Invalid Interpretation Code 15-37 [facility] Work Phone: [phone] Bilirubin (direct) 0.26 mg/dL Invalid Interpretation Code 0.00-0.30 [facility] Work Phone: [phone] Bilirubin (total) 0.80 mg/dL Invalid Interpretation Code 0.20-1.00 [facility] Work Phone: [phone] Globulin 3.2 g/dL Invalid Interpretation Code 2.3-3.5 [facility] Work Phone: [phone] Protein 7.1 g/dL Invalid Interpretation Code 6.4-8.2 [facility] Work Phone: [phone] Office Visit: UC: Lump on R side/trunkon 01-27-2017 Documentation of current medications (procedure) Done Invalid Interpretation Code [facility] Work Phone: Fall risk assessment No Invalid Interpretation Code [facility] Work Phone: Protein mass conc Done [facility] Work Phone: Tobacco smoking status NHIS Never smoker [facility] Work Phone: Tobacco use [facility] Never smoker Invalid Interpretation Code [facility] Work Phone: Office Visiton 01-14-2017 Documentation of current medications (procedure) Done Invalid Interpretation Code [facility] Work Phone: [phone] Fall risk assessment Fall risk assessment Invali d Interpretation Code [facility] Work Phone: [phone] Protein mass conc Done [facility] Work Phone: [phone] Office Visiton 09-12-2016 Documentation of current medications (procedure) Done Invalid Interpretation Code [facility] Work Phone: [phone] Fall risk assessment Fall risk assessment Invali d Interpretation Code [facility] Work Phone: [phone] Clinical Lists Update: Prelo code inspector 08-29-2016 Left ventricular Ejection fraction 55 % Invalid Interpretation Code [facility] Work Phone: [phone] Lab Report: Basic Metabolic Profile (BMP)on 07-30-2016 Anion gap 9 mmol/L Invalid Interpretation Code 5-15 [facility] Work Phone: [phone] Anion gap molar conc 9 mmol/L 5-[address] [facility] [address] [facility] Work Phone: [phone] BUN/Creatinine Ratio 14.7 RATIO Invalid Interpretation Code 10-20 [facility] Work Phone: [phone] Calcium 9.0 mg/dL Invalid Interpretation Code 8.5-10.1 [facility] Work Phone: [phone] Chloride 102 mmol/L Invalid Interpretation Code 98-107 [facility] Work Phone: [phone] CO2 28.0 mmol/L Invalid Interpretation Code 21.0-32.0 [facility] Work Phone: [phone] CO2 ppres (BldV) 28.0 mmol/L 21.0-32.0 [facility] Work Phone: [phone] Creatinine 1.16 mg/dL Invalid Interpretation Code 0.70-1.30 [facility] Work Phone: [phone] eGFR (non-black) 75 mL/min/{1.73_m2} Invalid Interpretation Code >60 [facility] Work Phone: [phone] eGFR (non-black) 90 mL/min/{1.73_m2} Invalid Interpretation Code >60 [facility] Work Phone: [phone] EST GFR - AA 90 mL/min >60 [facility] Work Phone: [phone] Glucose 96 mg/dL Invalid Interpretation Code 70-110 [facility] Work Phone: [phone] Glucose mass conc 96 mg/dL Invalid Interpretation Code 70-110 [facility] Work Phone: [phone] Potassium 4.1 mmol/L Invalid Interpretation Code 3.5-5.1 [facility] Work Phone: [phone] Sodium 139 mmol/L Invalid Interpretation Code 136-145 [facility] Work Phone: [phone] Urea nitrogen 17 mg/dL Invalid Interpretation Code 7-18 [facility] Work Phone: [phone] Lab Report: Lipid Profileon 07-29-2016 Cholesterol 167 mg/dL Invalid Interpretation Code 200 [facility] Work Phone: [phone] HDL Cholesterol 45 mg/dL Invalid Interpretation Code [facility] Work Phone: [phone] LDL Cholesterol 59 mg/dL Invalid Interpretation Code 0-130 [facility] Work Phone: [phone] Triglyceride 314 mg/dL High [facility] Work Phone: [phone] very low density lipoproteins 63 mg/dL High 5-40 [facility] Work Phone: [phone] Lab Report: Liver Profileon 07-29-2016 Alanine aminotransferase (ALT) 35 U/L Invalid Interpretation Code 12-78 [facility] Work Phone: [phone] Albumin 4.0 g/dL Invalid Interpretation Code 3.4-5.0 [facility] Work Phone: [phone] Alkaline phosphatase (ALP) 73 U/L Invalid Interpretation Code 45-117 [facility] Work Phone: [phone] ALP enzyme act/vol (Bld) 73 U/L 45-117 [facility] Work Phone: [phone] Aspartate aminotransferase (AST) 18 U/L Invalid Interpretation Code 15-37 [facility] Work Phone: [phone] Bilirubin (direct) 0.18 mg/dL Invalid Interpretation Code 0.00-0.30 [facility] Work Phone: [phone] Bilirubin (total) 0.70 mg/dL Invalid Interpretation Code 0.20-1.00 [facility] Work Phone: [phone] Globulin 3.3 g/dL Invalid Interpretation Code 2.3-3.5 [facility] Work Phone: [phone] Globulin mass conc (S) 3.3 g/dL 2.3-3.5 [facility] Work Phone: [phone] Protein 7.3 g/dL Invalid Interpretation Code 6.4-8.2 [facility] Work Phone: [phone] Office Visit: [facility] 05-30-20 16 Tobacco smoking status NHIS Never smoker [facility] Work Phone: [phone] Tobacco use [facility] Never smoker Invalid Interpretation Code [facility] Work Phone: [phone] Replaced Document: Amelia Larson 05-30-2016 BUN (urea nitrogen) Sinus Rhythm - Inferior -lateral infarct (possibly recent) -Incomplete right bundle branch block and unusual T-axis -possible posterior extension of lateral infarct -Left axis -anterior fascicular block (bifascicular block). ABNORMAL Invalid Interpretation Code [facility] Work Phone: [phone] EKG QRS axis -10 deg Invalid Interpretation Code [facility] Work Phone: [phone] GE use only - for [employer] import when terms are not otherwise specified 424 ms Invalid Interpretation Code [facility] Work Phone: [phone] P [place] 40 deg Invalid Interpretation Code [facility] Work Phone: [phone] P wave axis, electrocardiogram 40 deg Invalid Interpretation Code [facility] Work Phone: [phone] MO Interval 148 ms Invalid Interpretation Code [facility] Work Phone: [phone] MO interval, electrocardiogram 148 ms Invalid Interpretation Code [facility] Work Phone: [phone] Pulse (Heart Rate) 83 /min Invalid Interpretation Code [place] Work Phone: [phone] QRS axis, electrocardiogram -10 deg Invalid Interpretation Code [facility] Work Phone: [phone] QRS Duration 98 ms Invalid Interpretation Code [place] [facility] Work Phone: [phone] QRS duration, electrocardiogram 98 ms Invalid Interpretation Code [facility] Work Phone: [phone] QT Interval new path ms Invalid Interpretation Code [place] [facility] Work Phone: [phone] QT interval, electrocardiogram new path ms Invalid Interpretation Code [place] Work Phone: [phone] QTc [place] 424 ms Invalid Interpretation Code [facility] Work Phone: [phone] T [place] -95 deg Invalid Interpretation Code [facility] Work Phone: [phone] T wave axis, electrocardiogram -95 deg Invalid Interpretation Code [facility] Work Phone: [phone] Urea nitrogen mass conc Sinus Rhythm - Inferior -lateral infarct (possibly recent) -Incomplete right bundle branch block and unusual T-axis -possible posterior extension of lateral infarct -Left axis -anterior fascicular block (bifascicular block). ABNORMAL [facility] Work Phone: [phone] Vital Signs Date Time Vital Sign Value Performing Clinician Malloryi edward 02-28-2025 07:44-0400 Body height 185.[address] Stevan Bridges MD Work Phone: [facility] 02-28-2025 07:44-0400 Body mass index (BMI) [Ratio] 26.2 kg/m2 Dr. Stevan Bridges MD Work Phone: [facility] 02-28-2025 07:44-0400 Body weight 90.[address] Stevan Bridges MD Work Phone: [facility] 02-28-2025 07:44-0400 Diastolic blood pressure 76 mm[Hg] Dr. Stevan Bridges MD Work Phone: [facility] 02-28-2025 07:44-0400 Heart rate 55 /min Dr. Stevan Bridges MD Work Phone: [facility] 02-28-2025 07:44-0400 Respiratory rate 18 /min Dr. Stevan Bridges MD Work Phone: [facility] 02-28-2025 07:44-0400 SaO2% (BldA) [Mass fraction] 100 % Dr. Stevan Bridges MD Work Phone: [facility] 02-28-2025 07:44-0400 Systolic blood pressure 125 mm[Hg] Dr. Stevan Bridges MD Work Phone: [facility] 08-01-2023 08:04-0500 Body height 185.4 cm Stevan Bridges MD Work Phone: [facility] 08-01-2023 08:04-0500 Body weight 104.33 kg Stevan Bridges MD Work Phone: [facility] 08-01-2023 08:04-0500 Diastolic blood pressure 82 mm[Hg] Stevan Bridges MD Work Phone: [facility] 08-01-2023 08:04-0500 Heart rate 62 /min Stevan Bridges MD Work Phone: [facility] 08-01-2023 08:04-0500 Respiratory rate 16 /min Stevan Bridges MD Work Phone: [facility] 08-01-2023 08:04-0500 Systolic blood pressure 116 mm[Hg] Stevan Bridges MD Work Phone: [facility] 03-14-2023 02:53-0400 Body height 185.4 cm [facility] Work Phone: [facility] 03-14-2023 02:53-0400 Body weight 99 kg Sleep Main Work Phone: [facility] 01-17-2023 10:11-0400 Body temperature 97.3 [degF] Zoey Ramirez SURGICAL GARMENT ASSEMBLER.[employer]LAND ATTENDANT Work Phone: [facility] 01-17-2023 10:11-0400 Body weight 98.43 kg Zoey Ramirez SURGICAL GARMENT ASSEMBLER.[employer] ISLAND ATTENDANT Work Phone: [facility] 01-17-2023 10:11-0400 Diastolic blood pressure 86 mm[Hg] Zoey Ramirez SURGICAL GARMENT ASSEMBLER.[employer] ISLAND ATTENDANT Work Phone: [facility] 01-17-2023 10:11-0400 Heart rate 62 /min Zoey Ramirez SURGICAL GARMENT ASSEMBLER.[employer]EL ISLAND ATTENDANT Work Phone: [facility] 01-17-2023 10:11-0400 Respiratory rate 16 /min Zoey Ramirez SURGICAL GARMENT ASSEMBLER.FUEL ISLAND ATTENDANT Work Phone: [facility] 01-17-2023 10:11-0400 Systolic blood pressure 120 mm[Hg] Zoey Ramirez SURGICAL GARMENT ASSEMBLER.[employer]EL ISLAND ATTENDANT Work Phone: [facility] 07-12-2022 16:37-0500 Body height 185.4 cm Zoey Ramirez SURGICAL GARMENT ASSEMBLER.[employer]EL ISLAND ATTENDANT Work Phone: [facility] 07-12-2022 16:37-0500 Body weight 102.42 kg Viktoria Nichols MD Work Phone: [facility] 07-12-2022 16:37-0500 Diastolic blood pressure 74 mm[Hg] Viktoria Nichols MD Work Phone: [facility] 07-12-2022 16:37-0500 Heart rate 70 /min Viktoria Nichols MD Work Phone: [facility] 07-12-2022 16:37-0500 Systolic blood pressure 108 mm[Hg] Viktoria Nichols MD Work Phone: [facility] 07-12-2022 11:00-0500 Body weight 101.15 kg Zoye Ramirez SURGICAL GARMENT ASSEMBLER.FUEL ISLAND ATTENDANT Work Phone: [facility] 07-12-2022 11:00-0500 Diastolic blood pressure 76 mm[Hg] Zoey Ramirez SURGICAL GARMENT ASSEMBLER.[employer] ISLAND ATTENDANT Work Phone: [facility] 07-12-2022 11:00-0500 Heart rate 56 /min Zoey Ashley SURGICAL GARMENT ASSEMBLER.[employer] ISLAND ATTENDANT Work Phone: [facility] 07-12-2022 11:00-0500 Respiratory rate 14 /min Zoey Ashley SURGICAL GARMENT ASSEMBLER.FUEL ISLAND ATTENDANT Work Phone: [facility] 07-12-2022 11:00-0500 Systolic blood pressure 122 mm[Hg] Zoey Ramirez SURGICAL GARMENT ASSEMBLER.[employer]EL ISLAND ATTENDANT Work Phone: [facility] 01-16-2022 10:19-0400 Body height 185.4 cm Viktoria Nichols MD Work Phone: [facility] 01-16-2022 10:19-0400 Body weight 103.74 kg Viktoria Nichols MD Work Phone: [facility] 01-16-2022 10:19-0400 Diastolic blood pressure 90 mm[Hg] Viktoria Nichols MD Work Phone: [facility] 01-16-2022 10:19-0400 Heart rate 63 /min Viktoria Nichols MD Work Phone: [facility] 01-16-2022 10:19-0400 Systolic blood pressure 133 mm[Hg] Viktoria Nichols MD Work Phone: [facility] 11-29-2021 11:00-0400 Diastolic blood pressure 90 mm[Hg] Dr. Stevan Bridges Work Phone: [facility] Work Phone: 11-29-2021 11:00-0400 Systolic blood pressure 120 mm[Hg] Dr. Stevan Bridges Work Phone: [facility] Work Phone: 11-29-2021 09:43-0400 Body height 185.[address] Stevan Bridges Work Phone: [facility] Work Phone: 11-29-2021 09:43-0400 Body mass index (BMI) [Ratio] 29.8 kg/m2 Dr. Stevan Bridges Work Phone: [facility] Work Phone: 11-29-2021 09:43-0400 Body weight 102.[address] Stevan Bridges Work Phone: [facility] Work Phone: 11-29-2021 09:43-0400 Heart rate 62 /min Dr. Stevan Bridges Work Phone: [facility] Work Phone: 11-29-2021 09:43-0400 Respiratory rate 18 /min Dr. Stevan Bridges Work Phone: [facility] Work Phone: 11-29-2021 09:43-0400 SaO2% (BldA) [Mass fraction] 94 % Dr. Stevan Bridges Work Phone: [facility] Work Phone: 01-27-2017 15:37-0400 BMI (Body Mass Index) 27.82 kg/m2 Sabrina Obando LPN [facility] No [facility] Clinic Work Phone: 01-27-2017 15:37-0400 Body Temperature 97.1 [degF] Sabrina Obando LPN [facility] Now [facility] Work Phone: 01-27-2017 15:37-0400 BP Diastolic 78 mm[Hg] Sabrina Obando LPN [facility] Now [facility] ic Work Phone: 01-27-2017 15:37-0400 BP Systolic 122 mm[Hg] Sabrina Obando LPN [facility] Now [facility] Work Phone: 01-27-2017 15:37-0400 Height 186.69 cm Sabrina Obando LPN [facility] Now [facility] Work Phone: 01-27-2017 15:37-0400 Pulse (Heart Rate) 63 /min Sabrina Obando LPN [facility] Now C linic Work Phone: 01-27-2017 15:37-0400 Respiratory Rate 12 /min Sabrina Obando LPN [facility] Now [facility] Work Phone: 01-27-2017 15:37-0400 Weight 96.98 kg Sabrina Obando LPN [facility] Now Clin ic Work Phone: 01-14-2017 15:53-0400 BMI (Body Mass Index) 27.47 kg/m2 Yaima Salmon [facility] Work Phone: 01-14-2017 15:53-0400 BP Diastolic 60 mm[Hg] Yaima Wolfe [facility] Work Phone: 01-14-2017 15:53-0400 BP Systolic 120 mm[Hg] Yaima Wolfe [facility] Work Phone: 01-14-2017 15:53-0400 Height 185.42 cm Yaima Wolfe [facility] Work Phone: 01-14-2017 15:53-0400 Pulse (Heart Rate) 64 /min Yaima Wolfe [facility] Work Phone: 01-14-2017 15:53-0400 Respiratory Rate 20 /min Yaima Wolfe [facility] Work Phone: 01-14-2017 15:53-0400 Weight 94.44 kg Yaima Wolfe [facility] Work Phone: 09-12-2016 13:36-0400 BMI (Body Mass Index) 27.86 kg/m2 Justin Junior NP [facility] Work Phone: 09-12-2016 13:36-0400 BP Diastolic 70 mm[Hg] Justin Junior NP [facility] Work Phone: 09-12-2016 13:36-0400 BP Systolic 104 mm[Hg] Justin Junior NP [facility] Work Phone: 09-12-2016 13:36-0400 Height 185.42 cm Justin Junior R&D ENGINEER [facility] Work Phone: 09-12-2016 13:36-0400 Pulse (Heart Rate) 60 /min Justin Junior R&D ENGINEER [facility] Work Phone: 09-12-2016 13:36-0400 Respiratory Rate 20 /min Justin Junior R&D ENGINEER [facility] Work Phone: 09-12-2016 13:36-0400 Weight 95.8 kg Justin Junior R&D ENGINEER [facility] Work Phone: 05-30-2016 14:29-0500 Heart rate 83 /min Yaima Wolfe [facility] Work Phone: 05-30-2016 14:04-0500 Body Temperature 98.1 [degF] Justin Junior R&D ENGINEER [facility] Work Phone: 05-30-2016 14:04-0500 BP Diastolic 60 mm[Hg] Justin Junior R&D ENGINEER [facility] Work Phone: 05-30-2016 14:04-0500 BP Systolic 80 mm[Hg] Justin Junior R&D ENGINEER [facility] Work Phone: 05-30-2016 14:04-0500 BSA (Body Surface Area) 2.19 m2 Justin Junior R&D ENGINEER [facility] Work Phone: 05-30-2016 14:04-0500 Pulse Oximetry 97 % Justin Junior R&D ENGINEER [facility] Work Phone: Encounters Encounter Date Encounter Type Care Provider Facility Start: 03-18-2025 ambulatory Monica Suarezi ty:[facility] Start: 03-02-2025 End: 03-02-2025 ambulatory [facility] Facility:[facility] Start: 03-01-2025 End: 03-01-2025 ambulatory [facility] Facility:[facility] Start: 03-01-2025 Encounter for genera l adult medical examination without abnormal findings LETICIA PRASAD [facility] Start: 03-01-2025 End: 03-01-2025 ambulatory STEVAN BRIDGES Facility:[facility] Start: 02-28-2025 End: 02-28-2025 Patient encounter procedure Monica Lombardi NP-C -[facility] Work Phone: Start: 02-28-2025 End: 02-28-[address] Stevan Bridges MD Work Phone: -[facility] Start: 10-21-2024 End: 11-18-2024 ambulatory Stevan Bridges MD Work Phone: [address] [place] [address] Comment on above: Blood Pressure Check Start: 11-06-2023 Refill Zoey carrasco APRN.CNP Work Phone: [facility] [place] Comment on above: Refill Request Start: 08-16-2023 Refill Viktoria keane MD Work Phone: Rheumatology Comment on above: Refill Request Start: 08-01-2023 End: 08-01-2023 Patient encounter procedure Stevan Bridges MD Work Phone: [facility] Comment on above: Well adult exam (Chichi kisha Dx); Essential hypertension with goal blood pressure less than 140/90; Mixed hyperlipidemia; Coronary artery disease due to lipid rich plaque; Gastroesophageal reflux disease without esophagitis; Anxiety; Chronic gout of multiple sites, unspecified cause; Fatty liver; Elevated LFTs; Encounter for screening for diabetes mellitus; Medication management Start: 08-01-2023 End: 08-01-2023 Patient encounter status Stevan Bridges MD Work Phone: [facility] Work Phone: Start: 05-10-2023 Refill Leticia Hassan on PA-C Work Phone: [facility] Comment on above: Refill Request Start: 05-04-2023 Refill Viktoria keane MD Work Phone: Rheumatology Comment on above: Refill Request Start: 04-08-2023 Telephone encounter Usha Crooks MA [facility] Comment on above: Orders (CPAP) Start: 04-05-2023 Refill Leticia Hassan on PA-C Work Phone: [facility] Comment on above: Refill Request Start: 03-31-2023 Telephone encounter Zoey kenney APRN.[employer]LAND ATTENDANT Work Phone: [facility] [place] Comment on above: Results Start: 02-12-2023 Chart abstracting [facility] Work Phone: Neurology Start: 02-06-2023 Refill Viktoria keane MD Work Phone: Rheumatology Comment on above: Refill Request Start: 01-20-2023 Telephone encounter Zoey kenney APRN.[employer]LAND ATTENDANT Work Phone: [facility] Comment on above: Results Start: 01-17-2023 End: 01-17-2023 Patient encounter procedure Zoey Ramirez APRN.[employer]LAND ATTENDANT Work Phone: [facility] [place] Comment on above: Snoring (Primary Dx) ; Essential hypertension with goal blood pressure less than 140/90; Medication management Start: 01-10-2023 Chart abstracting Stevan sheldon MD Work Phone: [facility] [place] Start: 10-30-2022 Refill Stevan judge MD Work Phone: [facility] [place] Comment on above: Refill Request Start: 08-22-2022 Refill Stevan judge MD Work Phone: [facility] [place] Comment on above: Refill Request Start: 08-17-2022 Refill Viktoria keane MD Work Phone: Rheumatology Comment on above: Refill Request Start: 08-16-2022 Refill Viktoria keane MD Work Phone: Rheumatology Comment on above: Refill Request Start: 07-30-2022 Telephone encounter Leticia eugene PA-C Work Phone: [facility] [place] Comment on above: Results Start: 07-12-2022 End: 07-12-2022 Patient encounter procedure Zoey Ramirez APRN.[employer]LAND ATTENDANT Work Phone: [facility] [place] Comment on above: Essential hypertensi on with goal blood pressure less than 140/90 (Primary Dx); Gastroesophageal reflux disease without esophagitis; Mixed hyperlipidemia; Over weight; Encounter for screening for diabetes mellitus Chronic gout of [facility] sites, unspecified cause (Primary Dx); Polyarthralgia; On colchicine therapy Start: 06-12-2022 Refill Viktoria keane MD Work Phone: Rheumatology Comment on above: Refill Request Start: 05-03-2022 End: 05-03-2022 ambulatory [facility] Nurse [facility] Work Phone: [facility] [place] Start: 04-01-2022 ambulatory Stevan judge MD Work Phone: [facility] Comment on above: Avorstatin question Start: 03-16-2022 Refill Chanel S Ki rchnadalberto SURGICAL GARMENT ASSEMBLER.[employer]LAND ATTENDANT Work Phone: Rheumatology Comment on above: Refill Request Start: 01-16-2022 End: 01-16-2022 Patient encounter procedure Viktoria Nichols MD Work Phone: Rheumatology Comment on above: Chronic gout of [facility] sites, unspecified cause (Primary Dx); G6PD deficiency; Polyarthralgia; On colchicine therapy; Olecranon bursitis of right elbow; Arthralgia, unspecified joint; Malaise and fatigue Start: 12-19-2021 Non-patient / Non-visit Dr. Artemio Bridges Work Phone: [facility] Start: 12-19-2021 End: 12-19-[address] [facility] Start: 11-29-2021 End: 11-29-[address] Stevan Bridges Work Phone: [facility] Start: 11-26-2021 Refill Viktoria keane MD Work Phone: Rheumatology Comment on above: Refill Request Start: 11-06-2021 Refill Chanelsilvia rea SURGICAL GARMENT ASSEMBLER.[employer]LAND ATTENDANT Work Phone: Rheumatology Comment on above: Refill Request Start: 10-17-2021 End: 10-17-2021 Subsequent hospital visit by physician [facility] [place] Work Phone: Radiology Comment on above: G6PD deficiency [D75 .A] Start: 10-04-2021 Refill Stevan judge MD Work Phone: [facility] Comment on above: Refill Request Start: 06-13-2021 Patient encounter status Stevan Bridges MD Work Phone: [facility] [facility] Work Phone: Procedures Date Procedure Procedure Detail Performing Clinician Start: 07-27-2022 Lipid 1996 panel - S michelle or Plasma [facility] Main Work Phone: Start: 05-03-2022 PFIZER-BIONTECH COVI D-19 BIVALENT BOOSTER VACCINE, AGE 12+ YR Stevan Bridges MD Work Phone: Start: 05-03-2022 INFLUENZA VACCINE QUADRIVALENT 6 MO - 64 YRS IM Stevan Bridges MD Work Phone: Start: 12-19-2021 Radionuclide imaging of perfusion of myocardium under exercise stress Dr. Stevan Bridges Work Phone: Start: 10-17-2021 Radex elbow 2 views Amb jason Nichols MD Work Phone: Start: 08-24-2021 Adult depression scr eening assessment Stevan Bridges MD Work Phone: Start: 06-12-2020 Colonoscopy Zoey kenney APRN.[employer] ATTENDANT Work Phone: Start: 01-14-2017 End: 01-14-2017 KATHI Partida MD Start: 01-14-2017 End: 01-14-2017 Follow Up Appt 4 months Dewayne Dalton Start: 01-14-2017 End: 01-14-2017 KATHI Partida MD Start: 01-14-2017 End: 01-14-2017 Follow Up Appt 4 months Dewayne Dalton Start: 12-02-2016 End: 02-17-2017 *Hepatic Function Panel Amarilys Ramos PA-C Work Phone: Start: 12-02-2016 End: 02-17-2017 Lipid 1996 panel - Serum or Plasma Amarilys Ramos PA-C Work Phone: Start: 12-02-2016 End: 02-17-2017 *Hepatic Function Panel Amarilys Ramos PA-C Work Phone: Start: 12-02-2016 End: 02-17-2017 Lipid panel [AGGREGATE] Amarilys Ramos PA-C Work Phone: Start: 09-12-2016 End: 01-14-2017 KATHI Partida MD Start: 09-12-2016 End: 01-14-2017 Follow Up Appt 4 months Dewayne Dalton Start: 09-12-2016 End: 01-14-2017 KATHI Partida MD Start: 09-12-2016 End: 01-14-2017 Follow Up Appt 4 months Dewayne Dalton Start: 07-30-2016 End: 07-30-2016 *BMP Amarilys Ramos PA-C Work Phone: Start: 07-30-2016 End: 07-30-2016 *Hepatic Function Panel Amarilys Ramos PA-C Work Phone: Start: 07-30-2016 End: 08-31-2016 Lipid 1996 panel - Serum or Plasma Amarilys Ramos PA-C Work Phone: Start: 07-30-2016 End: 07-30-2016 *BMP Amarilys Ramos PA-C Work Phone: Start: 07-30-2016 End: 07-30-2016 *Hepatic Function Panel Amarilys Ramos PA-C Work Phone: Start: 07-30-2016 End: 08-31-2016 Lipid panel [AGGREGATE] Amarilys Ramos PA-C Work Phone: Start: 05-30-2016 End: 05-30-2016 BEEF KILLER Amarilys Ramos PA-C Work Phone: Start: 05-30-2016 End: 05-30-2016 Ecg routine ecg w/least 12 lds w/i&r Amarilys Ramos PA-C Work Phone: Start: 05-30-2016 End: 08-29-2016 Echocardiography Amarilys Ramos PA-C Work Phone: Start: 05-30-2016 End: 05-30-2016 Follow Up Appt 3 months Amarilys Ramos PA-C Work Phone: Start: 05-30-2016 End: 05-30-2016 BEEF KILLER Amarilys Ramos PA-C Work Phone: Start: 05-30-2016 End: 08-29-2016 Echocardiography Amarilys Ramos PA-C Work Phone: Start: 05-30-2016 End: 05-30-2016 Electrocardiogram, complete Amarilys Ramos PA-C Work Phone: Start: 05-30-2016 End: 05-30-2016 Follow Up Appt 3 months Amarilys Ramos PA-C Work Phone: Start: 05-22-2016 Placement of stent i n coronary artery Mutilple coronary stents Yaima Wolfe Start: 05-17-2016 History of placement of stent for coronary artery disease H/O heart artery stent Stevan Bridges MD Work Phone: Start: 05-15-2016 History of placement of stent for coronary artery disease History of coronary artery stent placement Monica Lombardi R&D ENGINEERJoanieC Comment on above: PCI-MEREDITH-Mid LCx w/ 3 .0 x 28 mm Synergy Stent and MEREDITH-Mid OM1 w/ 2.5 x 12 mm Synergy Stent 05/15/16 Plan of Treatment Date Care Activity Detail Author Start: 06-12-2030 Screening for malignant neoplasm of colon [facility] Start: 07-27-2027 Lipid 1996 panel - Serum or Plasma Lipid Screening [facility] Start: 07-27-2027 Lipid panel Lipid Screening [facility] Start: 07-27-2027 LIPID SCREEN LIPID SCREEN [facility] Start: 11-23-2026 LIPID SCREEN LIPID SCREEN [facility] Start: 05-29-2026 LIPID SCREEN LIPID SCREEN [facility] Start: 01-17-2026 DIABETES SCREEN DIABETES SCREEN [facility] Start: 01-17-2026 Diabetes Screening Diabetes Screening [facility] Start: 07-27-2025 DIABETES SCREEN DIABETES SCREEN [facility] Start: 02-28-2025 Radionuclide imaging of perfusion of myocardium under exercise stress [facility] Start: 02-28-2025 End: 02-28-2025 Evaluation of diagnostic study results [facility] Start: 01-31-2025 Influenza vaccination Influenza Vaccine (Season Ended) [facility] Start: 01-16-2025 DIABETES SCREEN DIABETES SCREEN [facility] Start: 07-31-2024 Annual PCP Team Chronic Disease Visit Annual PCP Team Chronic Disease Visit [facility] Start: 07-31-2024 Covid-19 Vaccine ( season) Covid-19 Vaccine () [facility] Comment on above: Postponed from 01/31/2023 (Declined at t his time) Start: 07-22-2024 Urine microalbumin profile [facility] Start: 06-01-2024 Behavioral Health Screening Behavioral Health Screening [facility] Comment on above: Postponed from 06/02/2023 (Declined at t his time) Start: 06-01-2024 Depression Assessment Depression Assessment [facility] Comment on above: Postponed from 06/02/2023 (Declined at t his time) Start: 02-01-2024 Covid-19 Vaccine () Covid-19 Vaccine () [facility] Start: 02-01-2024 Influenza vaccination [facility] Start: 01-30-2024 End: 01-30-2024 Patient encounter procedure [facility] Comment on above: 6 month follow up gout follow up Start: 01-18-2024 ANNUAL PCP TEAM CHRONIC DISEASE VISIT ANNUAL PCP TEAM CHRONIC DISEASE VISIT [facility] Start: 01-18-2024 BP CONTROLLED (<130/80) BP CONTROLLED (<130/80) [facility] in Start: 11-30-2023 Influenza vaccination Influenza Vaccine (#1) [place] [facility] Comment on above: Postponed from 01/31/2023 (Not Currently Available) Start: 08-01-2023 End: 10-31-2023 CBC W Auto Differential panel - Blood CBC + DIFF Lab Routine Medication management Expected: 08/01/2023, Expires: 10/31/2023 [facility] Work Phone: Comment on above: Expected: 08/01/2023, Expires: Start: 08-01-2023 End: 10-31-2023 Cobalamin (Vitamin B12) [Mass/volume] in Serum or Plasma VITAMIN B12 BLOOD Lab Routine Gastroesophageal reflux disease without esophagitis Medication management Expected: 08/01/2023, Expires: 10/31/2023 [facility] Work Phone: Comment on above: Expected: 08/01/2023, Expires: Start: 08-01-2023 End: 10-31-2023 Comprehensive metabolic 2000 panel - Serum or Plasma COMP METABOLIC PANEL Lab Routine Essential hypertension with goal blood pressure less than 140/90 Mixed hyperlipidemia Elevated LFTs Expected: 08/01/2023, Expires: 10/31/2023 [facility] Work Phone: Comment on above: Expected: 08/01/2023, Expires: 4 Start: 08-01-2023 End: 10-31-2023 Hemoglobin A1c in Blood HGB A1C Lab Routine Well adult exam Encounter for screening for diabetes mellitus Expected: 08/01/2023, Expires: 10/31/2023 [facility] Work Phone: Comment on above: Expected: 08/01/2023, Expires: 4 Start: 08-01-2023 End: 10-31-2023 LIPID PANEL, NONFASTING LIPID PANEL, NONFASTING Lab Routine Essential hypertension with goal blood pressure less than 140/90 Mixed hyperlipidemia Coronary artery disease due to lipid rich plaque Fatty liver Expected: 08/01/2023, Expires: 10/31/2023 [facility] Work Phone: Comment on above: Expected: 08/01/2023, Expires: Start: 08-01-2023 End: 10-31-2023 Magnesium [Mass/volume] in Serum or Plasma MAGNESIUM BLD Lab Routine Gastroesophageal reflux disease without esophagitis Medication management Expected: 08/01/2023, Expires: 10/31/2023 [facility] Work Phone: Comment on above: Expected: 08/01/2023, Expires: Start: 08-01-2023 End: 10-31-2023 Thyrotropin [Units/volume] in Serum or Plasma TSH BLD Lab Routine Medication management Expected: 08/01/2023, Expires: 10/31/2023 [facility] Work Phone: Comment on above: Expected: 08/01/2023, Expires: 4 Start: 08-01-2023 End: 10-31-2023 Urinalysis complete panel - Urine URINALYSIS, WITH MICROSCOPIC Lab Routine Essential hypertension with goal blood pressure less than 140/90 Mixed hyperlipidemia Expected: 08/01/2023, Expires: 10/31/2023 [facility] Work Phone: Comment on above: Expected: 08/01/2023, Expires: Start: 07-27-2023 Hepatitis B surface antibody level LDL CHOLESTEROL [facility] Start: 07-12-2023 ANNUAL PCP TEAM CHRONIC DISEASE VISIT ANNUAL PCP TEAM CHRONIC DISEASE VISIT [facility] Start: 07-12-2023 BP CONTROLLED (<130/80) BP CONTROLLED (<130/80) [facility] Start: 01-31-2023 Covid-19 Vaccine ( season) Covid-19 Vaccine () [facility] Start: 01-31-2023 Influenza vaccination [facility] Start: 01-17-2023 End: 03-19-2023 CBC W Auto Differential panel - Blood CBC + DIFF Lab Routine Medication management Expected: 01/17/2023, Expires: 03/19/2023 [facility] Work Phone: Comment on above: Expected: 01/17/2023, Expires: 3 Start: 01-17-2023 End: 03-19-2023 Comprehensive metabolic 2000 panel - Serum or Plasma COMP METABOLIC PANEL Lab Routine Medication management Expected: 01/17/2023, Expires: 03/19/2023 [facility] Work Phone: Comment on above: Expected: 01/17/2023, Expires: 3 Start: 12-18-2022 ANNUAL PCP TEAM CHRONIC DISEASE VISIT ANNUAL PCP TEAM CHRONIC DISEASE VISIT [facility] Start: 11-23-2022 Hepatitis B surface antibody level LDL CHOLESTEROL [facility] Start: 08-24-2022 Adult depression screening assessment DEPRESSION SCREENING [facility] Start: 07-12-2022 End: 09-11-2022 CBC W Auto Differential panel - Blood [facility] Work Phone: Comment on above: Expected: 07/12/2022, Expires: 3 Start: 07-12-2022 End: 09-11-2022 Comprehensive metabolic 2000 panel - Serum or Plasma [facility] Work Phone: Comment on above: Expected: 07/12/2022, Expires: 3 Start: 07-12-2022 End: 09-11-2022 Hemoglobin A1c in Blood HGB A1C Lab Routine Encounter for screening for diabetes mellitus Expected: 07/12/2022, Expires: 09/11/2022 [facility] Work Phone: Comment on above: Expected: 07/12/2022, Expires: 3 Start: 07-12-2022 End: 09-11-2022 LIPID PANEL, NONFASTING LIPID PANEL, NONFASTING Lab Routine Mixed hyperlipidemia Expected: 07/12/2022, Expires: 09/11/2022 [facility] Work Phone: Comment on above: Expected: 07/12/2022, Expires: 3 Start: 07-12-2022 End: 09-11-2022 Urate [Mass/volume] in Serum or Plasma URIC ACID BLOOD Lab Routine Chronic gout of multiple sites, unspecified cause Polyarthralgia On colchicine therapy Expected: 07/12/2022, Expires: 09/11/2022 [facility] Work Phone: Comment on above: Expected: 07/12/2022, Expires: 3 Start: 2022 COLOGUARD (FIT-DNA) COLOGUARD (FIT-DNA) [facility] Start: 2022 Colonoscopy COLONOSCOPY [facility] Start: 2022 COLORECTAL CANCER SCREENING COLORECTAL CANCER SCREENING [facility] Start: [address] COLONOGRAPHY [facility] Start: 2022 FECAL OCCULT BLOOD FECAL OCCULT BLOOD [facility] Start: 2022 Screening for malignant neoplasm of colon [facility] Start: 2022 SIGMOIDOSCOPY SIGMOIDOSCOPY [facility] Start: 06-13-2022 ANNUAL PCP TEAM CHRONIC DISEASE VISIT ANNUAL PCP TEAM CHRONIC DISEASE VISIT [facility] Start: 06-02-2022 DEPRESSION ASSESSMENT DEPRESSION ASSESSMENT [facility] Start: 05-29-2022 Hepatitis B surface antibody level LDL CHOLESTEROL [facility] Start: 01-31-2022 Influenza vaccination [facility] Start: 11-25-2021 BP CONTROLLED (<130/80) BP CONTROLLED (<130/80) [facility] Start: 11-20-2021 End: 02-18-2022 Comprehensive metabolic 2000 panel - Serum or Plasma COMP METABOLIC PANEL Lab Routine Chronic gout of multiple sites, unspecified cause Expected: 11/20/2021, Expires: 02/18/2022 [facility] Work Phone: Comment on above: Expected: 11/20/2021, Expires: 2 Start: 09-24-2021 COVID-19 VACCINE (4 - Booster for Pfizer series) COVID-19 VACCINE (4 - Booster for Pfizer series) [facility] Start: 06-02-2021 DEPRESSION ASSESSMENT DEPRESSION ASSESSMENT [facility] Start: 08-18-2017 End: 02-18-2017 *Hepatic Function Panel *Hepatic Function Panel [facility] Work Phone: Start: 08-18-2017 End: 02-18-2017 Lipid panel [AGGREGATE] *Lipid Profile CC PCP [facility] Work Phone: Start: 08-18-2017 End: 02-18-2017 *Hepatic Function Panel *Hepatic Function Panel [facility] Work Phone: Start: 08-18-2017 End: 02-18-2017 Lipid panel [AGGREGATE] *Lipid Profile CC PCP [facility] Work Phone: Start: 05-20-2017 End: 05-20-2017 Appointment Appointment [facility] Work Phone: Start: 04-15-2017 End: 04-15-2017 Appointment Appointment [facility] Work Phone: Start: 01-27-2017 End: 01-27-2017 Appointment Appointment [facility] Work Phone: Start: 01-14-2017 End: 01-14-2017 Appointment Appointment [facility] Work Phone: Start: 01-14-2017 End: 01-14-2017 BEEF KILLER BEEF KILLER [facility] Work Phone: Start: 01-14-2017 End: 01-14-2017 Follow Up Appt 4 months Follow Up Appt 4 months [facility] Work Phone: Start: 01-14-2017 End: 01-14-2017 BEEF KILLER BEEF KILLER [facility] Work Phone: Start: 01-14-2017 End: 01-14-2017 Follow Up Appt 4 months Follow Up Appt 4 months [facility] Work Phone: Start: 12-02-2016 End: 09-02-2016 *Hepatic Function Panel *Hepatic Function Panel [facility] Work Phone: Start: 12-02-2016 End: 09-02-2016 Lipid panel [AGGREGATE] *Lipid Profile CC PCP [facility] Work Phone: Start: 12-02-2016 End: 09-02-2016 *Hepatic Function Panel *Hepatic Function Panel [facility] Work Phone: Start: 12-02-2016 End: 09-02-2016 Lipid panel [AGGREGATE] *Lipid Profile CC PCP [facility] Work Phone: Start: 09-12-2016 End: 01-14-2017 BEEF KILLER BEEF KILLER [facility] Work Phone: Start: 09-12-2016 End: 01-14-2017 Follow Up Appt 4 months Follow Up Appt 4 months [facility] Work Phone: Start: 09-12-2016 End: 01-14-2017 BEEF KILLER BEEF KILLER [facility] Work Phone: Start: 09-12-2016 End: 01-14-2017 Follow Up Appt 4 months Follow Up Appt 4 months [facility] Work Phone: Start: 07-30-2016 End: 07-30-2016 *BMP *BMP [facility] Work Phone: Start: 07-30-2016 End: 07-30-2016 *Hepatic Function Panel *Hepatic Function Panel [facility] Work Phone: Start: 07-30-2016 End: 07-30-2016 Lipid panel [AGGREGATE] *Lipid Profile CC PCP [facility] Work Phone: Start: 07-30-2016 End: 07-30-2016 *BMP *BMP [facility] Work Phone: Start: 07-30-2016 End: 07-30-2016 *Hepatic Function Panel *Hepatic Function Panel [facility] Work Phone: Start: 07-30-2016 End: 07-30-2016 Lipid panel [AGGREGATE] *Lipid Profile CC PCP [facility] Work Phone: Start: 05-30-2016 End: 05-30-2016 Cardiac Rehab Cardiac Rehab [facility] Work Phone: Start: 05-30-2016 End: 05-30-2016 BEEF KILLER BEEF KILLER [facility] Work Phone: Start: 05-30-2016 End: 05-30-2016 Ecg routine ecg w/least 12 lds w/i&r EKG (In office) [facility] Work Phone: Start: 05-30-2016 End: 05-30-2016 Echocardiography Echocardiogram (complete) [facility] Work Phone: Start: 05-30-2016 End: 05-30-2016 Follow Up Appt 3 months Follow Up Appt 3 months [facility] Work Phone: Start: 05-30-2016 End: 05-30-2016 Cardiac Rehab Cardiac Rehab [facility] Work Phone: Start: 05-30-2016 End: 05-30-2016 BEEF KILLER BEEF KILLER [facility] Work Phone: Start: 05-30-2016 End: 05-30-2016 Echocardiography Echocardiogram (complete) [facility] Work Phone: Start: 05-30-2016 End: 05-30-2016 Electrocardiogram, complete EKG (In office) [facility] Work Phone: Start: 05-30-2016 End: 05-30-2016 Follow Up Appt 3 months Follow Up Appt 3 months [facility] Work Phone: Start: 1995 Depression Screening Depression Screening [facility] Start: 1975 HEPATITIS B (1 of 3 - 3-dose series) HEPATITIS B (1 of 3 - 3-dose series) [facility] Start: 1975 Hepatitis B Vaccine (1 of 3 - 3-dose series) Hepatitis B Vaccine (1 of 3 - 3-dose series) [facility] Patient Education HEART%20HEALTH Y%20DIET, HEART%20HEALTHY%20DIET [facility] Work Phone: End: 01-17-2024 Polysomnogram POLYSOMNOGRAM (PSG) Procedures Routine Snoring 1 Occurrences starting 01/17/2023 until 01/17/2024 [facility] Work Phone: Comment on above: 1 Occurrences starting 01/17/2023 until 01/17/2024 [facility] Immunizations Immunization Date Immunization Notes Care Provider Jacinda prather 05-03-2022 COVID-19 booster vaccine, age 12+ yr, bivalent (PFIZER-BIONTECH) Immunization [facility] Work Phone: [facility] Work Phone: 05-03-2022 influenza, injectabl e, quadrivalent, contains preservative Immunization [place] Work Phone: [facility] Work Phone: 05-03-2022 influenza virus vaccine, unspecified formulation [facility] Work Phone: [facility] 07-30-2021 COVID-19 vaccine, ag e 12+ yr (PFIZER-BIONTECH - MCCOLLUM TOP) Stevan Bridges MD Work Phone: [facility] Work Phone: 08-18-2020 COVID-19 vaccine, ag e 12+ yr (PFIZER-BIONTECH - PURPLE TOP) Stevan Bridges MD Work Phone: [facility] 07-28-2020 COVID-19 vaccine, ag e 12+ yr (PFIZER-BIONTECH - PURPLE TOP) Stevan Bridges MD Work Phone: [facility] 03-30-2020 influenza, injectabl e, quadrivalent, contains preservative Stevan Bridges MD Work Phone: [facility] 03-15-2019 influenza, injectabl e, quadrivalent, contains preservative Stevan Bridges MD Work Phone: [facility] 03-04-2018 influenza, injectabl e, quadrivalent, contains preservative Stevan Bridges MD Work Phone: [facility] 04-09-2016 influenza, injectabl e, quadrivalent, contains preservative Stevan Bridges MD Work Phone: [facility] Work Phone: 03-02-[address] Stevan Bridges Work Phone: [facility] 03-29-2015 influenza, injectabl e, quadrivalent, contains preservative Stevan Bridges MD Work Phone: [facility] Work Phone: 07-22-2014 tetanus toxoid, reduced diphtheria toxoid, and acellular pertussis vaccine, adsorbed Stevan Bridges MD Work Phone: [facility] 05-24-2013 influenza virus vaccine, unspecified formulation Stevan Bridges MD Work Phone: [facility] Work Phone: 06-18-2011 influenza virus vaccine, unspecified formulation Stevan Bridges MD Work Phone: [facility] 04-18-2010 influenza virus vaccine, unspecified formulation Stevan Bridges MD Work Phone: [facility] Work Phone: 03-24-2008 influenza virus vaccine, unspecified formulation Stevan Bridges MD Work Phone: [facility] Work Phone: Payers Date Payer Category Payer Self-pay [id number] 2021 Private Health Insurance MMO SUP [employer] PPO [id number] 2021 Unknown MMO MMO [employer] [id number] 2021-Present [phone] [address] [place] [address] PPO [id number] 2021 Unknown [id number] 2018 Unknown MMO MMO [employer] [id number] 2018-Present [phone] [address] [place] [address] PPO [id number] 2008 Unknown [id number] Unknown [id number] Unknown [id number] Social History Date Type Detail Facility Start: 01-16-2022 End: 01-10-2023 Tobacco smoking status NHIS Never smoked tobacco [facility] Start: 08-24-2021 End: 08-01-2023 Alcohol intake Current drinker of alcohol (finding) [facility] Start: 03-28-2020 End: 03-30-2020 History SDOH Alcohol Frequency 5 [facility] Start: 03-28-2020 End: 03-30-2020 History SDOH Alcohol Std Drinks 2 [facility] Start: 03-28-2020 End: 03-30-2020 History SDOH Alcohol Binge 3 [facility] Start: 11-18-2018 History SDOH Alcohol Comment 3 BEERS DAILY [facility] Start: 03-28-2020 History SDOH Financial 4 [facility] Start: 03-28-2020 History SDOH Food Worry 1 [facility] Start: 03-28-2020 Education 18 [facility] Start: 1975 Sex Assigned At Male [facility] Start: 10-05-2021 End: 05-03-2022 Exposure to SARS-CoV-2 (event) Not sure [facility] Start: 11-29-2021 Tobacco smoking status NHIS Unknown if ever smoked [facility] Work Phone: Start: 05-19-2016 Occasional [facility] Start: 05-19-2016 None [facility] Start: 05-26-2016 Spouse/ Significant Other [facility] Start: 06-08-2018 Non-smoker [facility] Start: 07-22-2014 End: 01-16-2022 Tobacco use and exposure Smokeless tobacco non-user [facility] Start: 03-28-2020 End: 01-17-2023 History of Social function [facility] Start: 03-28-2020 End: 01-17-2023 Social connection and isolation panel [facility] Active Member of [facility] bs or Organizations Not on file [facility] Work Phone: Are you now , , , , never or living with a partner? [facility] How often to you hav e a drink containing alcohol? 4 or more times a week [facility] Work Phone: How many standard dr inks containing alcohol do you have on a typical day? 3 or 4 [facility] Work Phone: How often do you hav e 6 or more drinks on 1 occasion? Monthly [facility] Work Phone: How hard is it for y ou to pay for the very basics like food, housing, medical care, and heating Not very hard [facility] Do you feel stress - tense, restless, nervous, or anxious, or unable to sleep at night because your mind is troubled all the time - these days [OSQ] To some extent [facility] Work Phone: (I/We) worried whedeanne er (my/our) food would run out before (I/we) got money to buy more. Never true [facility] In the past 12 month s, was there a time when you were not able to pay the mortgage or rent on time? Yes [facility] At any time in the p ast 12 months, were you homeless or living in halfway [including now]? No [facility] Start: 03-28-2020 Gender identity Identifies as male gender (finding) [facility] Start: 03-28-2020 Sexual orientation Heterosexual (finding) [facility] How often do you hav e 6 or more drinks on 1 occasion? Monthly [facility] Work Phone: Medical Equipment Procedure Code Equipment Code Equipment Origin al Text Equipment Identifier Dates MESH,PLUG PER FIX [id number] FDA Start: 06-15-2018 MESH,PLUG PER FIX [id number] FDA Start: 06-15-2018 Functional Status Date Assessment Result Facility 07-22-2014 Are you deaf, or do you have serious difficulty hearing No 07/22/2014 8:45 AM Merry Norman LPN No [facility] 07-22-2014 Are you blind, or do you have serious difficulty seeing, even when wearing glasses No 07/22/2014 8:45 AM Merry Norman LPN [facility] 07-22-2014 Do you have serious difficulty walking or climbing stairs No 07/22/2014 8:45 AM Merry Norman LPN No [facility] 07-22-2014 Do you have difficul ty dressing or bathing No 07/22/2014 8:45 AM Merry Norman LPN No [facility] 07-22-2014 Because of a physica l, mental, or emotional condition, do you have difficulty doing errands alone such as visiting a physician's office or shopping No 07/22/2014 8:45 AM Merry Norman LPN No [facility] Mental Status Date Assessment Result Facility 07-22-2014 Because of a physica l, mental, or emotional condition, do you have serious difficulty concentrating, remembering, or making decisions No 07/22/2014 8:45 AM Merry Norman LPN [facility] Clinical Notes 05-16-2010 to 03-01-2025 Note Date & Type Note Facility 03-01-2025 Note HNO ID: [id number] Author: VIKTORIA NICHOLS MD Service: ? Author Type: Physician Type: Progress Notes Filed: 03/01/2025 18:48 Note Text: Rheumatology History AND Physical Patient name: Basim Alexandra Requesting provider: No att. providers found SUBJECTIVE INITIAL RHEUMATOLOGY VISIT 08/21: Mr. Basim Alexandra is a 46 year old male who has a past medical history of polyarticular tophaceous gout, CAD (STEMI) s/p PCI, anxiety, transaminitis, HTN, fatty liver, GERD, Anxiety/depressoin, inguinal hernia, HLD, seasonal allergies who presents for rheumatology evaluation. Previously evaluated by Dr. Salguero - new to me. PSHx: He has a past surgical history that includes tooth extraction; past surgical history of (05/15/2016); 2d echo (exep) (05/15/2016); stress test (02/05/2018); rpr 1st ingun hrna age 7 yrs/> reducible (Left, 06/15/2018); and colonoscopy - diagnostic (06/12/2020). Allergies: He is allergic to azithromycin and erythromycin. Current Meds: selenium sulfide, pantoprazole, fluoxetine, atorvastatin, colchicine 0.6mg q2 days, febuxostat 40mg/d, sour monsalve extract, aspirin, enteric coated, metoprolol succinate er, lisinopril, ticagrelor, cetirizine, ibuprofen Family History: family history includes Afib in his father; Alzheimer's Disease in his maternal aunt and maternal grandmother; Coronary Artery Disease in his maternal grandfather, maternal grandmother, and another family member; Depression in his mother; Diabetes in his maternal aunt; Hyperlipidemia in his mother; Lung Cancer in his mother; No Known Problems in his sister; Pancreatic Cancer (age of onset: 79) in his father. gout, nephrolithiasis in his father Social History: He reports that he has never smoked. He has never used smokeless tobacco. He reports current alcohol use. He reports that he does not use drugs. Labs: Latest Ref Rng AND Units 03/01/2025 01/17/2023 07/27/2022 01/16/2022 CBC WBC 3.70 - 11.00 k/uL 4.56 5.67 5.42 5.31 Hemoglobin 13.0 - 17.0 g/dL 14.2 15.5 14.1 15.4 Hematocrit 39.0 - 51.0 % 40.5 43.0 41.5 43.6 Platelet Count 150 - 400 k/uL 208 193 360 208 Abs Neut (ANC) 1.45 - 7.50 k/uL 1.90 3.09 3.09 2.26 Abs Lymph 1.00 - 4.00 k/uL 1.78 1.84 1.62 1.96 Latest Ref Rng AND Units 01/17/2023 07/27/2022 01/16/2022 11/23/2021 CMP Sodium 136 - 144 mmol/L 143 141 137 134 Potassium 3.7 - 5.1 mmol/L 3.9 4.4 4.1 4.2 Chloride 97 - 105 mmol/L 107 108 104 100 CO2 22 - 30 mmol/L 18 18 22 16 Glucose 74 - 99 mg/dL 104 97 86 95 BUN 9 - 24 mg/dL 19 11 18 17 Creatinine 0.73 - 1.22 mg/dL 1.22 1.23 1.09 1.24 Calcium 8.5 - 10.2 mg/dL 9.5 9.8 9.8 9.7 AST 14 - 40 U/L 29 33 50 43 ALT 10 - 54 U/L 32 36 62 55 Alkaline Phosphatase 38 - 113 U/L 72 67 63 69 Latest Ref Rng AND Units 01/17/2023 01/16/2022 10/17/2021 02/19/2021 Uric Acid Uric Acid 4.0 - 8.1 mg/dL 5.7 5.7 6.1 5.1 Latest Ref Rng AND Units 01/16/2022 10/17/2021 11/18/2018 05/09/2006 ESR, WSR WSR 0 - 15 mm/hr 2 2 28 Sed Rate, [place] 0 - 10 mm/hr 1 Latest Ref Rng AND Units 01/16/2022 10/17/2021 11/18/2018 CRP CRP <0.9 mg/dL 0.3 <0.3 0.8 Latest Ref Rng AND Units 10/17/2021 10/17/2021 11/18/2018 RF and CCP Rheumatoid Factor <16 IU/mL 27 <10 CCP Antibody IgG Qualitative Negative Negative CCP Antibody, IgG <20 Units <15 <15 Latest Ref Rng AND Units 11/23/2021 10/17/2021 Hepatitis Screen Hep A Ab, IgM Negative Negative Hep B Core Ab, IgM Negative Negative Hep B Core Ab, Total Negative Negative Hep B Surf Ab Qual Negative Negative Hep C Antibody IA Negative Negative Hep B Surface Ag Negative Negative Negative 10/17/2021 TB Screen TB Interpretation Infection with M. tuberculosis complex is unlikely. If latent tuberculosis infection is highly suspected, a negative result does not rule out the infection. Specimens from immunocompromised patients and those <5 years of age may show false negative results. In case of a contact investigation, please repeat 8-12 weeks after a known exposure. TB Result Negative Latest Ref Rng AND Units 11/18/2018 Antibodies LESLIE by EIA OD Ratio 0.2 LESLIE by EIA, Qual Negative Negative Latest Ref Rng AND Units 03/01/2025 07/27/2022 05/29/2021 02/19/2021 Urinalysis Protein, Urine Negative Negative Trace Negative Negative RBC, Urine 0-2 /HPF 0-2 /HPF 0-3 /HPF 0-3 0-3 Latest Ref Rng AND Units 10/17/2021 TPMT amd G6PD G-6-PD Quantitative 9.8 - 15.5 U/g Hb 11.8 Labs: 05/22: sCr WNL; ALT 67, AST 56, A1c 5.2%; CBC WNL 02/20: uric acid 5.1 11/18: (-) LESLIE, RF, CCP; SPEP (-) M protein 11/18 R olecranon Bursa Aspiration - TNC 3491 Positive for crystals with polarizing properties of uric acid. Abnormal Uric acid trend: 8.1 (2018) --> 10.4 (11/18) --> 6.1 (12/18) --> 5.7 (08/19) --> 5.9 (12/19) --> 5.2 (08/20) --> 5.1 (02/20) Imaging: XR R FOOT 2019: MILD HALLUX VALGUS AND PLANTAR CALCANEAL SPUR. XR L FOOT 2019: No acute fracture or dislocation. XR HANDS 2019: No acute abnormality RHEUMATOLOGY EVALUATION 08/24/2021 Patient seen (more content not included)... [facility] 03-01-2025 Note HNO ID: [id number] Author: LETICIA PRASAD PA-C Service: ? Author Type: Physician Nursery Teacher Type: Progress Notes Filed: 03/01/2025 11:17 Note Text: Chief Complaint Patient presents with: Yearly Exam: med refills HPI Basim Alexandra is a 49 year old male who presents here today for physical. Patient has a history of HTN, HLD, CAD, and gout as well as those as below. CAD: - Recent cardiology appointment. - Brilinta switched to Plavix without issues. - Continues atorvastatin. - Continues lisinopril 5 mg daily. - Continues metoprolol tartrate 12.5 mg BID. Gout: - Uloric switched to allopurinol without issues. - Upcoming virtual appointment with ceramic coater machine. Tinea Versicolor: - Chronic condition managed with selenium sulfide shampoo and previously with fluconazole. - Concerns about potential interaction between fluconazole and Plavix. Incarceration: - [facility] on [facility] after 1.5 years. - No drug or alcohol-related offenses. - No alcohol consumption during incarceration; plans to abstain for at least another year or two. Weight Loss: - Lost 30 lbs during incarceration. - Attributes weight loss to dietary changes, including eating beans and rice. - Plans to continue some dietary habits post-release. Past medical history, appointments, medications, allergies reviewed. Previous Medical History PAST MEDICAL HISTORY Diagnosis Date Anxiety 03/29/2015 Coronary artery disease due to lipid rich plaque 08/19/[address] Partida Diverticulosis of large intestine without hemorrhage 06/13/2016 Elevated LFTs 06/13/2021 Equinus deformity of foot 03/30/2013 Essential hypertension with goal blood pressure less than 140/90 09/28/2015 Fatty liver 06/13/2021 Gastroesophageal reflux disease without esophagitis 03/29/2015 H/O heart artery stent 05/17/201605/2016: Mid Circ and Obtuse marginal History of ST elevation myocardial infarction (STEMI) 05/17/2016 05/15/2016, seeing Dr. Partida Inguinal hernia of left side without obstruction or gangrene 09/02/2017 Very mild on exam 08/2017 possible early start of. Mixed hyperlipidemia 03/29/2015 Obesity Over weight 02/03/2009 Plantar fasciitis, bilateral 11/10/2018 Seasonal allergies 04/18/2010 Stress reaction 02/19/2017 Well adult exam 04/09/2016 last done: 09/01/2017 Previous Surgical History PAST SURGICAL HISTORY Procedure Laterality Date 2D ECHO (EXEP) 05/15/2016 EF=45% mod systolic dys, mod papillary muscl dys of MV, mod PA. COLONOSCOPY - DIAGNOSTIC 06/12/2020 PAST SURGICAL HISTORY OF 05/15/2016 Stent to Circ and obtuse marginal RPR 1ST INGUN HRNA AGE 7 YRS/> REDUCIBLE Left 06/15/2018 Hernia repair, inguinal STRESS TEST 02/05/2018 normal stress echo TOOTH EXTRACTION wisdom teeth Family History FAMILY HISTORY Problem Relation Age of Onset Depression Mother Hyperlipidemia Mother Lung Cancer Mother Pancreatic Cancer Father 79 other (Afib) Father No Known Problems Sister Alzheimer's Disease Maternal Grandmother Coronary Artery Disease Maternal Grandmother Coronary Artery Disease Maternal Grandfather early 50's Alzheimer's Disease Maternal Aunt Diabetes Maternal Aunt maternal cousin DM1 Coronary Artery Disease Other multiple maternal cousins with Stents Anesthesia Problems No Family History Blood Clots No Family History Clotting Disorder No Family History Prostate Cancer No Family History Patient Allergies ALLERGIES Allergen Reactions Azithromycin Shortness of Breath Erythromycin GI Upset Current Medications Current Outpatient Medications on File Prior to Visit Medication Sig clopidogrel (PLAVIX) 75 mg tablet Take 75 mg by mouth once daily. metoprolol tartrate, short acting, (LOPRESSOR) 25 mg tablet Take 12.5 mg by mouth two times a day. Per cardio atorvastatin (LIPITOR) 40 mg tablet Take 1 tablet by mouth once daily. CPAP/BIPAP/OTHER Type .CPAPSettings into a note to see current settings/supplies/DME information. lisinopril (ZESTRIL, PRINIVIL) 5 mg tablet Take 1 tablet by mouth once daily. aspirin, enteric coated (ASPIR-81) 81 mg EC tablet Take 1 tablet by mouth once daily. cetirizine (ZYRTEC) 10 mg tablet Take 1 tablet by mouth once daily. IBUPROFEN 200 MG CAP take 2-3 as needed sour monsalve extract (TART MONSALVE EXTRACT ORAL) Take 1,200 mg by mouth twice daily. (Patient not taking: Reported on 03/01/2025) No current facility-administered medications on file prior to visit. Social History SOCIAL HISTORY[1] Review of Symptoms REVIEW OF SYSTEMS Constitutional: (+) weight loss, (-) fever, (-) fatigue, (-) weakness Head: (-) headaches Eyes: (-) vision changes Ears/Nose/Mouth/Throat: (-) hearing changes, (-) sinus congestion Neck: (-) neck swelling Cardiovascular: (-) chest pain, (-) palpitations Respiratory: (-) cough, (-) wheezing, (-) dyspnea Gastrointestinal: (-) nausea, (-) vomiting, (-) heartburn, (-) change in bowel habits, (-) bl (more content not included)... [facility] 02-28-2025 Progress note [facility] 02-28-2025 Progress note Note Date/Time February 28, 2025 2:23pm [facility] [address] [place] [address] OFFICE VISIT Date of Service: 02/28/25 MR#: [id number] Acct: [id number] Name: BASIM ALEXANDRA Rep #: [id number] : 1975 Provider: BETHANY Lombardi Age/Sex: 49/M [place] [facility] [place] Status: Signed HPI HPI History of Present Illness Details: BASIM ALEXANDRA, is a 49 M who presents for a cardiovascular follow-up visit.?Patient was last seen in our office in December 2022. ?He is a gentleman who had a acute ST elevation myocardial infarction May 2016.? He had a cardiac catheterization and underwent angioplasty and stenting of his acute marginal vessel.? From a cardiac standpoint, the patient is doing well. He denies any palpitations, chest pain, pressure or heaviness. He denies SOB, Orthopnea, and PND. He does not have bleeding issues; no blood in urine, stool, or nosebleeds. He denies any decrease in energy level, myalgias, or claudication. He does not have edema, or sudden weight gain. He does acknowledge occasional lightheadedness with quick positional changes. He denies dizziness, syncopal or near syncopal episodes, and headaches. 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 Is patient in pain?: No Allergies erythromycin base Allergy (Verified 02/28/25 14:12) Unknown Medications ?Medication ?Instructions ?Recorded ?Confirmed ?Type cetirizine 10 mg capsule 10 mg PO DAILY 12/18/1502/01 History aspirin 81 mg chewable tablet 81 mg PO DAILY@0800 09/0102/28/25 History fluoxetine 10 mg capsule 10 mg PO DAILY 05/19/1702/01 History pantoprazole 40 mg tablet,delayed 40 mg PO DAILY 10/2002/28/25 History release allopurinol 100 mg tablet 100 mg PO QDAY 02/28/2502/01 History atorvastatin 20 mg tablet 40 mg (2 x 20 mg) PO QHS #90 tabs 02/28/25 02/28/25 Rx clopidogrel 75 mg tablet (Plavix) 75 mg PO QDAY #90 ta bs 02/28/25 02/28/25 Rx lisinopril 5 mg tablet See Rx Instructions .Route 0 02/28/25 02/28/25 Rx .COMPLEX #90 tabs metoprolol tartrate 25 mg tablet See Rx Instructions . Route 02/28/25 02/28/25 Rx .COMPLEX #90 tabs Ejection fraction %: 55 Have you fallen in the past year?: No PFSH Medical History Mitral papillary muscle dysfunction Gout Plantar fasciitis Heme positive stool Diverticulitis Pericarditis Essential (primary) hypertension Ischemic cardiomyopathy 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 Acute chest pain Hyperlipidemia Surgical History (Updated 02/28/25 @ 16:15 by Monica Lombardi R&D ENGINEER, R&D ENGINEER-C) History of left inguinal hernia repair (06/2018) History of coronary artery stent placement (05/15/16) Family History Father Atrial fibrillation Mother Hyperlipidemia Social History Smoking Status: Never smoker ROS Const Const: Negative for fatigue, weakness, headache(s) or frequent falls Eyes Eyes: Negative for blurry vision ENT ENT: Negative for headache(s), dizziness or Nosebleed/epistaxis Cardio Chest Pain: No Palpitations: No Edema: None Muscle aches with walking: None Resp Respiratory: Negative for SOB with activity, SOB at rest or SOB orthopnea\\SOB lying down GI GI: Negative nausea, vomiting, heartburn, bright, red blood in stools or black,tarry stools : Negative for hematuria Neuro Neuro: Positive for lightheadedness; Negative for dizziness, near syncope, syncope, frequent falls, headache(s), weakness or blurry vision Endo Endo: Negative for fatigue Cardiology Exam Const Appearance: cooperative, healthy appearing, comfortable, no acute distress and well developed Nutritional Appearance: overweight Orientation: alert, awake and oriented x3 Head Head: normal to inspection Ears: hearing grossly normal bilaterally Nose: external nose normal Face and Sinus: face symmetric Eyes General: appearance normal, both eyes and all related structures Eyelids: eyelids normal Conjunctivae: conjunctivae normal Pupils: PERRL EOM: EOM intact bilaterally Neck Neck: normal visual inspection and trachea midline; Negative no JVD Carotids: Negative bruit Chest Chest inspection: normal inspection of the chest Auscultation: Bilateral: Clear to Auscultation Cardio Palpation: normal PMI Rate: bradycardic Rhythm: regular rhythm Heart sounds: S1 normal and S2 normal; Negative rub, gallop or murmur GI GI: normal to inspection and soft Neuro General: patient alert, patient awake, patient oriented x3 and CN's II-XI intactbilaterally Skin Skin: no rashes or lesions noted Extremities Pulses: Normal: Right Posterior Tibial Pulse, Left Posterior Tibial Pulse, RightRadial Pulse and Left Radial Pulse Lower Extremity Edema: None: Bilateral Psych Psychological: normal affect Supplemental Info Supplemental Information Stress echo 2018: The estimated ejection fraction is 55 %. Lateral-Basal: Mildly hypokinetic Normal, adequate, treadmill echocardiogram. Negative for ischemia by EKG and echocardiographic criteria. Patient had baseline mild inferior lateral/basal lateral hypokinesis as a result of his previous PA, but all ortega contracted normally at peak exercise. Patient had baseline atypical 3 out of 10 chest pain which has persisted constantly over the last 4 days withoutchange with activity. This chest pain did not worsen with exertion. Appropriate blood pressure response to exercise. Average exercise capacity for age. Final LVEF of 65%. No complications. Stress test 2021: Exercise stress myocardial perfusion test. 46-year-old male with a history of coronary disease. Stress protocol: Resting KG demonstrates normal sinus rhythm with a rate of 61 bpm normal intervals are noted resting blood pressure is 128/84 mmHg. The patient exercised according to the regular Rj protocol for total duration of 10 minutes and 29 seconds. Patient completed 1 minute and 29 seconds into stage IVof the Rj protocol. The maximum heart rate attained was 1 and 62 bpm which was 92% of max impacted heart rate the maximum workload was 13.4 metabolic equivalents. At rest there were no ST or T wave changes noted to suggest ischemia and at peak exercise upsloping ST changes were noted with did not meet the criteria for ischemia. No clinical angina was noted the test was terminateddue to the target heart rate being achieved. No chest pain was noted. The peakblood pressure was 176/70 mmHg. Myocardial perfusion protocol. 14.8 mCi of technetium 99m sestamibi was injected at rest. The patient exercised according to regular Rj protocol for total duration of 10-1/2 minutes and at peak exercise 44.5 mCi of technetium 99m sestamibi was injected stress images were obtained stress and rest images were reconstructed in comparing the short axis vertical long and horizontal long axis. Gated images were also obtained to Perfusion SPECT analysis: Review of the stress images demonstrate normal uptake of tracer noted in the septum anterior wall and part of the lateral wall. There is a perfusion defect noted in the inferior lateral wall which is present on the stress and resting images to a similar extent. The above is suggestive of a previous inferolateralinfarct. No obvious ischemia though a small amount of philip-infarct ischemia cannot be completely excluded. Gated SPECT analysis: The gated ejection fraction is noted to be 61%. Conclusion: Exercise myocardial perfusion stress test with no significant ischemia noted at a high workload. Good functional aerobic capacity. Inferolateral infarct with minimal philip-infarct ischemia present Labs: LDL Cholesterol, (0-130) 68 mg/dL HDL Cholesterol, (40-) 43 mg/dL Cholesterol, (200) 162 mg/dL Triglycerides, (-199) 253 mg/dL H Diagnostics: Electrocardiogram Stress Test Stress Test Nuclear Medicine Stress Echocardiogram Cardiac Catheterization Chest X-Ray Abdomen/Pelvis CT Past Visits: Cardiology Visit Today Assessment and Plan Assessment and Plan (1) History of coronary artery stent placement: Status: Acute Comment: PCI-MEREDITH-Mid LCx w/ 3.0 x 28 mm Synergy Stent and MEREDITH-Mid OM1 w/ 2.5 x 12 mm Synergy Stent 05/15/16 Plan: Patient has a history of coronary artery disease with stent placement in 2015. His most recent stress test from 12/19/2021 was negative for ischemia. His EKG from today demonstrates sinus bradycardia, possible inferior infarct (this is not new), heart rate 55 bpm. 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 Will need to have a treadmill nuclear stress test to further assess for any ischemia prior to clearing patient for his DOT. He appears stable at this time, and denies any recent symptoms or events. He will continue aspirin 81 mg daily, Plavix 75 mg daily, and atorvastatin 40 mg daily. He will continue with aggressive risk factor and lifestyle modifications, as well as monitoring for any concerning symptoms. (2) Essential (primary) hypertension: Status: Chronic Plan: Patient has a history of hypertension. His blood pressure is well-controlled atthis time?125/76. He will continue with his current medical therapy, along withmonitoring his blood pressures at home. He will notify our office any persistently elevated or low blood pressure readings. (3) Hyperlipidemia: Status: Chronic Qualifiers: Hyperlipidemia type: pure hypercholesterolemia Qualified Code(s): E78.00 - Pure hypercholesterolemia, unspecified; E78.0 - Pure hypercholesterolemia Plan: Patient has a history of hyperlipidemia. His PCP monitors this. He will continue atorvastatin 40 mg daily, along with aggressive risk factor and lifestyle modifications. Copy of his most recent lipid panel would be greatly appreciated for continuity of care. Orders: Orders 12 Lead EKG performed by BMS Today Z95.5 - Presence of coronary angioplasty implant and graft Nuclear Stress Test - Treadmil Today I25.10 - Atherosclerotic heart disease of [place] coronary artery without angina pectoris, Z95.5 - Presence of coronary angioplasty implant and graft Medications: New atorvastatin 40 mg (2 x 20 mg) PO QHS 90 tabs 3RF clopidogrel (Plavix) 75 mg PO QDAY 90 tabs 3RF Refilled lisinopril TAKE 1 TABLET DAILY 90 tabs 3RF metoprolol tartrate TAKE 1/2 TABLET TWICE A DAY 90 tabs 3RF Plan Details Additional Comments: Patient will follow-up in 6 -9 months, or sooner if needed. Thank you for allowing me to participate in the care of your patient. Please donot hesitate to call if any issues arise. This note was generated using a voice recognition system and there may be incorrect words, spelling, or punctuation that were not noted when reviewing theoffice note prior to saving. Portions of this documentation were copied and pasted from previous office visitnotes to provide cohesive continuity of the history. The note has been reviewed,edited, and updated, as necessary. 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) Coding Level of Care Code Off vis,est,level 4 Diagnoses History of coronary artery stent placement Z95.5 Essential (primary) hypertension I10 Pure hypercholesterolemia E78.00; E78.0 Hyperlipidemia type: pure hypercholesterolemia Coding Level of Care Code Off vis,est,level 4 Diagnoses History of coronary artery stent placement Z95.5 Essential (primary) hypertension I10 Pure hypercholesterolemia E78.00; E78.0 Hyperlipidemia type: pure hypercholesterolemia Clinical Quality Measures Falls Risk Screening/Assistive Devices Have you fallen in the past year?: No Cardiac Ejection fraction %: 55 02/28/25 1616 <Electronically signed by Monica MARTELLC> Date _ Monica MARTELLC Cosigner Signature: Date (if applicable) CC: ~ [employer] Work Phone: [phone] NoteHNO ID: [id number] Author: ?, ?, ? Service: ? Author Type: ? Type: Progress Notes Filed: 11/18/2024 13:13 Note Text: Hypertension Outreach Basim Alexandra has been identified for clinical review due to having hypertension without an appointment in the past year. PSS Team - Please contact the patient with the following script: "Stevan Bridges MD has identified that you are in need of ongoing care of your hypertension and have not had a blood pressure visit with us in the last year. We would like to assist you in making an appointment to ensure that we control your blood pressure and keep you as healthy as possible." Outreach Outcome/Action: Unable to reach patient: Phone number not valid / voicemail full Note - if they see another provider, please update their chart.[facility] History of Present illness Narrative* Marlene Adams - 10/21/2024 12:24 PM EDT Hypertension Outreach Basim Alexandra has been identified for clinical review due to having hypertension without an appointment in the past year. PSS Team - Please contact the patient with the following script: "Stevan Bridges MD has identified that you are in need of ongoing care of your hypertension and have not had a blood pressure visitwith us in the last year. We would like to assist you in making an appointment to ensure that we control your blood pressure and keep you as healthy as possible." Outreach Outcome/Action: Unable to reach patient: Phone number not valid / voicemail full Note - if they see another provider, please update their chart. [facility] NotePatient Outreach (4CQ) DRAKEBASIM Ramires ([id number]) 1975 M Date Time Provider Department 10/21/24 STEVAN BRIDGES 4CQ During your visit today, we recorded the following information about you: Marlene Adams 11/18/2024 1:13 PM Signed Hypertension Outreach Basim Alexandra has been identified for clinical review due to having hypertension without an appointment in the past year. PSS Team - Please contact the patient with the following script: "Stevan Bridges MD has identified that you are in need of ongoing care of your hypertension and have not had a blood pressure visit with us in the last year. We would like to assist you in making an appointment to ensure that we control your blood pressure and keep you as healthy as possible." Outreach Outcome/Action: Unable to reach patient: Phone number not valid / voicemail full Note - if they see another provider, please update their chart. Allergies As of Date: 10/21/2024 Noted Allergy Reaction AZITHROMYCIN 02/04/2018 12 - Shortness of Breath ERYTHROMYCIN 10/08/2005 8 - GI Upset Date Reviewed: 08/01/2023 Reviewed by: Stevan Bridges MD - Fully Assessed Reason for Visit: Blood Pressure Check [195] Prescriptions as of 11/18/2024 - febuxostat (ULORIC) 40 mg tab take 1 tablet once daily - FLUoxetine (PROZAC) 10 mg capsule Take 1 capsule by mouth once daily. - pantoprazole DR (PROTONIX) 40 mg tablet TAKE 1 TABLET DAILY BEFORE BREAKFAST. TAKE ON EMPTY STOMACH, ONE HALF HOUR BEFORE A MEAL - atorvastatin (LIPITOR) 40 mg tablet Take 1 tablet by mouth once daily. - CPAP/BIPAP/OTHER Type .CPAPSettings into a note to see current settings/supplies/DME information. - lisinopril (ZESTRIL, PRINIVIL) 5 mg tablet Take 1 tablet by mouth once daily. - sour monsalve extract (TART MONSALVE EXTRACT ORAL) Take 1,200 mg by mouth twice daily. - aspirin, enteric coated (ASPIR-81) 81 mg EC tablet Take 1 tablet by mouth once daily. - metoprolol succinate ER (TOPROL XL) 25 mg 24 hr tablet Take 0.5 tablets by mouth once daily. - ticagrelor (BRILINTA) 90 mg tablet Take 1 tablet by mouth twice daily. - cetirizine (ZYRTEC) 10 mg tablet Take 1 tablet by mouth once daily. - IBUPROFEN 200 MG CAP take 2-3 as needed Problem List As Of Date 10/21/2024 Noted Resolved Elevated blood pressure reading without diagnos*09/21/2008 04/18/2010 Over weight [E66.3] 02/03/2009 Seasonal allergies [J30.2] 04/18/2010 Comedone [L70.0] 05/16/2010 09/12/2010 Cutaneous skin tags [L91.8] 05/16/2010 09/12/2010 Equinus deformity of foot [M21.6X9] 03/30/2013 Mixed hyperlipidemia [E78.2] 03/29/2015 Anxiety [F41.9] 03/29/2015 Gastroesophageal reflux disease without esophag*03/29/2015 Essential hypertension with goal blood pressure*09/28/2015 Well adult exam [Z00.00] 04/09/[address] elevation myocardial infarction (*05/17/2016 H/O heart artery stent [Z95.5] 05/17/2016 Diverticulosis of large intestine without hemor*06/13/2016 Stress reaction [F43.0] 02/19/2017 Coronary artery disease due to lipid rich plaqu*08/19/2017 Encounter for screening for diabetes mellitus [*08/19/2017 Inguinal hernia of left side without obstructio*09/02/2017 08/01/2023 Plantar fasciitis, bilateral [M72.2] 11/10/2018 Chronic gout of multiple sites [M1A.09X0] 03/15/2019 Medication management [Z79.899] 11/25/2020 Fatty liver [K76.0] 06/13/2021 Elevated LFTs [R79.89] 06/13/2021 Encounter Status:Closed by MARLENE ADAMS on 11/18/24[facility]06-06-2024 Telephone encounter Note* Telephone Encounter - Marion Durand RN - 11/06/2023 9:02 AM EDT Most recent Rheumatology visit: 01/17/2023 (with Viktoria Nichols) Rheumatology Care Team: None on file Recent Office Visits - This Specialty 01/17/2023 Chronic gout of multiple sites, unspecified cause Rheumatology Viktoria Nichols MD 07/12/2022 Chronic gout of multiple sites, unspecified cause Rheumatology Viktoria Nichols MD 01/16/2022 Chronic gout of multiple sites, unspecified cause Rheumatology Viktoria Nichols MD Upcoming Rheumatology Appointments - Next 365 Days Visit Type Date Time Department [facility] 01/30/2024 2:00 PM [facility] A50 CBC: None on file in the last 6 months Vitamin D: None on file in the last 6 months LFT: None on file in the last 6 months Hepatic Function: Creatinine: None on file in the last 6 months ESR/CRP: None on file in the last 6 months Uric Acid: None on file in the last 6 months Open Standing (Multiple Instance) Lab Orders None Open Future (Single Instance) Lab Orders None Marion Durand RN [facility]06-06-2024 Miscellaneous Notes* Telephone Encounter - Marion Durand RN - 11/06/2023 9:02 AM EDT Most recent Rheumatology visit: 01/17/2023 (with Viktoria Nichols) Rheumatology Care Team: None on file Recent Office Visits - This Specialty 01/17/2023 Chronic gout of multiple sites, unspecified cause Rheumatology Viktoria Nichols MD 07/12/2022 Chronic gout of multiple sites, unspecified cause Rheumatology Viktoria Nichols MD 01/16/2022 Chronic gout of multiple sites, unspecified cause Rheumatology Viktoria Nichols MD Upcoming Rheumatology Appointments - Next 365 Days Visit Type Date Time Department [facility] 01/30/2024 2:00 PM [facility] A50 CBC: None on file in the last 6 months Vitamin D: None on file in the last 6 months LFT: None on file in the last 6 months Hepatic Function: Creatinine: None on file in the last 6 months ESR/CRP: None on file in the last 6 months Uric Acid: None on file in the last 6 months Open Standing (Multiple Instance) Lab Orders None Open Future (Single Instance) Lab Orders None Marion Durand RN documented [facility] Miscellaneous Notes* Telephone Encounter - Marion Durand RN - 08/19/2023 7:17 AM EDT Most recent Rheumatology visit: 01/17/2023 (with Viktoria Nichols) Rheumatology Care Team: None on file Recent Office Visits - This Specialty 01/17/2023 Chronic gout of multiple sites, unspecified cause Rheumatology Viktoria Nichols MD 07/12/2022 Chronic gout of multiple sites, unspecified cause Rheumatology Viktoria Nichols MD 01/16/2022 Chronic gout of multiple sites, unspecified cause Rheumatology Viktoria Nichols MD Upcoming Rheumatology Appointments - Next 365 Days Visit Type Date Time Department [facility] 01/30/2024 2:00 PM [facility] A50 Last labs 01/17/23 Open Standing (Multiple Instance) Lab Orders None Open Future (Single Instance) Lab Orders Expected Expires Ordered VITAMIN B12 BLOOD [SQB12] 08/01/23 10/31/23 08/01/23 Auth. provider: Stevan Bridges MD Assoc. diagnoses: Gastroesophageal reflux disease without esophagitis, Medication management COMP METABOLIC PANEL [SQCMP] 08/01/23 10/31/23 08/01/23 Auth. provider: Stevan Bridges MD Assoc. diagnoses: Essential hypertension with goal blood pressure less than 140/90, Mixed hyperlipidemia, Elevated LFTs HGB A1C [AYHPV7A] 08/01/23 10/31/23 08/01/23 Auth. provider: Stevan Bridges MD Assoc. diagnoses: Well adult exam, Encounter for screening for diabetes mellitus URINALYSIS, WITH MICROSCOPIC [SQUAWMIC] 08/01/23 10/31/23 08/01/23 Auth. provider: Stevan Bridges MD Assoc. diagnoses: Essential hypertension with goal blood pressure less than 140/90, Mixed hyperlipidemia LIPID PANEL, NONFASTING [SQLIPNF] 08/01/23 10/31/23 08/01/23 Auth. provider: Stevan Bridges MD Assoc. diagnoses: Essential hypertension with goal blood pressure less than 140/90, Mixed hyperlipidemia, Coronary artery disease due to lipid rich plaque, Fatty liver TSH BLD [SQTSH] 08/01/23 10/31/23 08/01/23 Auth. provider: Stevan Bridges MD Assoc. diagnoses: Medication management CBC + DIFF [SQCBCDIF] 08/01/23 10/31/23 08/01/23 Auth. provider: Stevan Bridges MD Assoc. diagnoses: Medication management MAGNESIUM BLD [SQMG1] 08/01/23 10/31/23 08/01/23 Auth. provider: Stevan Bridges MD Assoc. diagnoses: Gastroesophageal reflux disease without esophagitis, Medication management Marion Durand RN documented [facility] History of Present illness Narrative* Stevan Bridges MD - 08/01/2023 8:00 AM EST Chief Complaint Patient presents with: Physical HPI Basim Alexandra is a 48 year old male who presents here today for Physical. Patient has a history of HTN, HLD, CAD. Patient states he feels well and has no complaints. Patientfollow with rheumatology for tophus gout. Any new concerns today? Patient has a mole on his chest like to have checked. Patient has noticed some numbness/tingling in both anterior thighs. No posterior leg weakness or numbness down the back of the lags. Has been seeing chiropractor for about 2 weeks and seems to be improving. Any recent ER/hospital visits? None Patient sees Rheumatology - Dr. 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 Feels much less stressed. Past medical history, appointments, medications, allergies reviewed. Previous Medical History PAST MEDICAL HISTORY Diagnosis Date Anxiety 03/29/2015 Coronary artery disease due to lipid rich plaque 08/19/[address] Partida Diverticulosis of large intestine without hemorrhage 06/13/2016 Elevated LFTs 06/13/2021 Equinus deformity of foot 03/30/2013 Essential hypertension with goal blood pressure less than 140/90 09/28/2015 Fatty liver 06/13/2021 Gastroesophageal reflux disease without esophagitis 03/29/2015 H/O heart artery stent 05/17/201605/2016: Mid Circ and Obtuse marginal History of ST elevation myocardial infarction (STEMI) 05/17/2016 05/15/2016, seeing Dr. Partida Inguinal hernia of left side without obstruction or gangrene 09/02/2017 Very mild on exam 08/2017 possible early start of. Mixed hyperlipidemia 03/29/2015 Obesity Over weight 02/03/2009 Plantar fasciitis, bilateral 11/10/2018 Seasonal allergies 04/18/2010 Stress reaction 02/19/2017 Well adult exam 04/09/2016 last done: 09/01/2017 Previous Surgical History PAST SURGICAL HISTORY Procedure Laterality Date 2D ECHO (EXEP) 05/15/2016 EF=45% mod systolic dys, mod papillary muscl dys of MV, mod PA. COLONOSCOPY - DIAGNOSTIC 06/12/2020 PAST SURGICAL HISTORY OF 05/15/2016 Stent to Circ and obtuse marginal RPR 1ST INGUN HRNA AGE 7 YRS/> REDUCIBLE Left 06/15/2018 Hernia repair, inguinal STRESS TEST 02/05/2018 normal stress echo TOOTH EXTRACTION wisdom teeth Family History FAMILY HISTORY Problem Relation Age of Onset Pancreatic Cancer Father 79 other (Afib) Father Alzheimer's Disease Maternal Grandmother Coronary Artery Disease Maternal Grandmother Alzheimer's Disease Maternal Aunt Diabetes Maternal Aunt maternal cousin DM1 Coronary Artery Disease Maternal Grandfather early 50's Coronary Artery Disease Other multiple maternal cousins with Stents Depression Mother Hyperlipidemia Mother No Known Problems Sister Anesthesia Problems No Family History Blood Clots No Family History Clotting Disorder No Family History Patient Allergies ALLERGIES Allergen Reactions Azithromycin Shortness of Breath Erythromycin GI Upset Current Medications Current Outpatient Medications on File Prior to Visit Medication Sig pantoprazole DR (PROTONIX) 40 mg tablet TAKE 1 TABLET DAILY BEFORE BREAKFAST. TAKE ON EMPTY STOMACH, ONE HALF HOUR BEFORE A MEAL atorvastatin (LIPITOR) 40 mg tablet Take 1 tablet by mouth once daily. febuxostat (ULORIC) 40 mg tab Take 1 tablet by mouth once daily. FLUoxetine (PROZAC) 10 mg capsule Take 1 capsule by mouth once daily. CPAP/BIPAP/OTHER Type .CPAPSettings into a note to see current settings/supplies/DME information. colchicine 0.6 mg tablet TAKE 1 TABLET EVERY 48-72 HOURS lisinopril (ZESTRIL, PRINIVIL) 5 mg tablet Take 1 tablet by mouth once daily. febuxostat (ULORIC) 40 mg tab Take 1 tablet by mouth once daily. sour monsalve extract (TART MONSALVE EXTRACT ORAL) Take 1,200 mg by mouth twice daily. aspirin, enteric coated (ASPIR-81) 81 mg EC tablet Take 1 tablet by mouth once daily. metoprolol succinate ER (TOPROL XL) 25 mg 24 hr tablet Take 0.5 tablets by mouth once daily. ticagrelor (BRILINTA) 90 mg tablet Take 1 tablet by mouth twice daily. cetirizine (ZYRTEC) 10 mg tablet Take 1 tablet by mouth once daily. IBUPROFEN 200 MG CAP take 2-3 as needed No current facility-administered medications on file prior to visit. Social History Social History Tobacco Use Smoking status: Never Smokeless tobacco: Never Vaping Use Vaping Use: Never used Substance Use Topics Alcohol use: Yes Comment: 3 BEERS DAILY Drug use: No Review of Symptoms REVIEW OF SYSTEMS GENERAL: No weight loss, malaise or fevers HEENT: Negative for frequent or significant headaches, No changes in hearing or vision, no nose bleeds or other nasal problems NECK: Negative for lumps, goiter, pain and significant neck swelling RESPIRATORY: Negative for cough, hemoptysis, COPD, dyspnea or shortness of breath. Slight wheezing in the AM only and resolves quickly. CARDIOVASCULAR: Negative for chest pain, leg swelling, hypertension, CHF or palpitations GI: No nausea, vomiting, or diarrhea, No heartburn or reflux symptoms, and no blood : No history of dysuria, frequency or incontinence MUSCULOSKELETAL: Negative for joint pain or swelling, back pain or muscle pain. SKIN: Negative for rash, and itching. Has an area on his front and back he wants looked at. PSYCH: Negative for sleep disturbance, mood disorder and recent psychosocial stressors HEMATOLOGY/LYMPHOLOGY: Negative for prolonged bleeding, bruising easily or swollen nodes ENDOCRINE: Negative for cold or heat intolerance, polyuria, polydipsia and goiter NEURO: No history of headaches, syncope, paralysis, seizures or tremors EXAM: BP 116/82 (BP Site: Left Arm, BP Position: Sitting, BP Cuff Size: Large Adult) Pulse 62 Resp 16 Ht 185.4 cm (6' 1") Wt 104.3 kg (230 lb) BMI 30.34 kg/m Last 4 Encounter Wt Readings: Date: Wt: 08/01/2023 104.3 kg (230 lb) 02/12/2023 99 kg (218 lb 4.1 oz) 01/17/2023 98.4 kg (217 lb) 01/17/2023 99.5 kg (219 lb 4.8 oz) General Appearance: Well appearing, alert, in no acute distress, well-hydrated, well nourished.. Skin: Skin color, texture, turgor normal, no suspicious rashes or lesions. Head: Normocephalic, no masses, lesions, tenderness or abnormalities. Eyes: Anicteric sclera. Pupils are equally round and reactive to light. Extraocular movements are intact. . Ears: External ears, TM's normal, canals clear. Nose/Sinuses: Nares normal, septum midline, mucosa normal, no drainage or sinus tenderness. Oropharynx: Lips, mucosa, and tongue normal, teeth and gums normal, oropharynx normal. Neck: Supple, no adenopathy; thyroid symmetric, normal size, no bruits. Lungs: Lungs clear to auscultation. No wheezing, rhonchi, rales.. Heart: RRR without murmur, gallop, or rubs. No ectopy. Abdomen: Normal abdominal exam, Abdomen soft, non-tender. Bowel sounds normal. No masses, organomegaly. Extremities: No deformities, edema, skin discoloration. Good capillary refill. . Musculoskeletal: Muscular strength intact, No joint swelling, deformity, or tenderness. Peripheral Pulses: Normal. Neurologic: Gait normal. Reflexes normal and symmetric. Sensation to light touch and crainal nerves2-12 intact.. Genitalia: Normal. No hernias. Health Maintenance List Hepatitis B Vaccine(1 of 3 - 3-dose series) Never done Colorectal Cancer Screening due on 2022 Influenza Vaccine(1) due on 01/31/2023 Covid-19 Vaccine(2022- season) due on 01/31/2023 Depression Assessment due on 06/02/2023 LDL Cholesterol due on 07/27/2023 Annual PCP Team Chronic Disease Visit due on 01/18/2024 BP Controlled (<130/80) due on 01/18/2024 DTaP,Tdap,Td Vaccine(2 - Td or Tdap) due on 07/22/2024 Diabetes Screening due on 01/17/2026 Lipid Screening due on 07/27/2027 HPV Vaccine Aged Out Hepatitis C Screening Discontinued HIV Screening Discontinued Data reviewed A/P ASSESSMENT/PLAN: 1. Well adult exam - ICD9: V70.0, ICD10: Z00.00 (primary diagnosis) - Counseled on healthy diet and regular exercise - Discussed need for and benefit of weight loss. BMI 30.34 kg/(m^2) - Follow up for annual exam in one year - HGB A1C 2. Essential hypertension with goal blood pressure less than 140/90 - ICD9: 401.9, ICD10: I10 - Controlled - Continue current medications - Recommend home blood pressure monitoring, to bring results to next visit - Encouraged sodium restriction, DASH or Mediterranean diet - Recommend regular aerobic exercise check - COMP METABOLIC PANEL - URINALYSIS, WITH MICROSCOPIC - LIPID PANEL, NONFASTING 3. Mixed hyperlipidemia - ICD9: 272.2, ICD10: E78.2 - await labs - Continue current medications - Counseled on healthy diet and regular exercise Check - COMP METABOLIC PANEL - URINALYSIS, WITH MICROSCOPIC - LIPID PANEL, NONFASTING 4. Coronary artery disease due to lipid rich plaque - ICD9: 414.00, 414.3, ICD10: I25.10, I25.83 - clinically stable and managed per cardio - LIPID PANEL, NONFASTING 5. Gastroesophageal reflux disease without esophagitis - ICD9: 530.81, ICD10: K21.9 - Continue treatment with Protonix 40 mg every day Check - VITAMIN B12 BLOOD - Mg 6. Anxiety - ICD9: 300.00, ICD10: F41.9 cont - FLUOXETINE 10 MG CAPSULE - discussed with change in jobs he could try stopping and seeing if he needs to stay on it. 7. Chronic gout of multiple sites, unspecified cause - ICD9: 274.02, ICD10: M1A.09X0 - management per Rheum 8. Fatty liver - ICD9: 571.8, ICD10: K76.0 Check - LIPID PANEL, NONFASTING 9. Elevated LFTs - ICD9: 790.6, ICD10: R79.89 Check - COMP METABOLIC PANEL 10. Encounter for screening for diabetes mellitus - ICD9: V77.1, ICD10: Z13.1 Check - HGB A1C 11. Medication management - ICD9: V58.69, ICD10: Z79.899 Check - VITAMIN B12 BLOOD - TSH BLD - CBC + DIFF Requested Prescriptions Signed Prescriptions Disp Refills FLUoxetine (PROZAC) 10 mg capsule 90 capsule 1 Sig: Take 1 capsule by mouth once daily. F/u 6 months routine. Stevan Bridges MD documented [facility] Miscellaneous Notes* Telephone Encounter - Negra Álvarez MA - 05/12/2023 11:25 AM EST Patient has been identified by name and date of : Yes Requested Prescriptions Pending Prescriptions Disp Refills atorvastatin (LIPITOR) 40 mg tablet 90 tablet 1 Sig: Take 1 tablet by mouth once daily. RX INSTRUCTIONS: Patient aware RX will be sent to pharmacy. No need to notify patient. Patient last office visit: 01/17/23 Patient next office visit: 08/01/23 Negra Álvarez MA documented in this encounterAk[facility]12-04-2023 Miscellaneous Notes* Telephone Encounter - Marion Durand RN - 05/05/2023 3:28 PM EST Most recent Rheumatology visit: 01/17/2023 (with Viktoria Nichols) Recent Office Visits - This Specialty 01/17/2023 Chronic gout of multiple sites, unspecified cause Rheumatology Viktoria Nichols MD 07/12/2022 Chronic gout of multiple sites, unspecified cause Rheumatology Viktoria Nichols MD 01/16/2022 Chronic gout of multiple sites, unspecified cause Rheumatology Viktoria Nichols MD Upcoming Rheumatology Appointments - Next 365 Days Visit Type Date Time Department [facility] 08/01/2023 2:00 PM [facility] CBC: CBC Latest Ref Rng & Units 07/27/2022 01/17/2023 WBC 3.70 - 11.00 k/uL 5.42 5.67 HEMOGLOBIN 13.0 - 17.0 g/dL 14.1 15.5 HEMOGLOBIN, LUIS ANTONIO 13.0 - 17.0 g/dL - - HEMATOCRIT 39.0 - 51.0 % 41.5 43.0 PLATELETS 150 - 400 k/uL 360 193 ABS NEUT (ANC) 1.45 - 7.50 k/uL 3.09 3.09 ABS NEUT, LUIS ANTONIO 1.45 - 7.50 k/uL - - ABS LYMP, LUIS ANTONIO 1.00 - 4.00 k/uL - - ABS LYMPH 1.00 - 4.00 k/uL 1.62 1.84 Vitamin D: None on file in the last 6 months LFT: CMP Latest Ref Rng & Units 07/27/2022 01/17/2023 SODIUM 136 - 144 mmol/L 141 143 SODIUM, LUIS ANTONIO 135 - 146 mmol/L - - SODIUM, LUIS ANTONIO 135 - 146 mmol/L - - POTASSIUM 3.7 - 5.1 mmol/L 4.4 3.9 POTASSIUM, LUIS ANTONIO 3.5 - 5.0 mmol/L - - CHLORIDE 97 - 105 mmol/L 108(H) 107(H) CHLORIDE, LUIS ANTONIO 98 - 110 mmol/L - - CO2 22 - 30 mmol/L 18(L) 18(L) CO2, LUIS ANTONIO 23.0 - 32.0 mmol/L - - GLUCOSE 74 - 99 mg/dL 97 104(H) GLUCOSE, LUIS ANTONIO 65 - 100 mg/dL - - BUN 9 - 24 mg/dL 11 19 BUN, LUIS ANTONIO 10 - 25 mg/dL - - CREATININE 0.73 - 1.22 mg/dL 1.23(H) 1.22 CREATININE, LUIS ANTONIO 0.7 - 1.4 mg/dL - - CALCIUM, LUIS ANTONIO 8.5 - 10.5 mg/dL - - CALCIUM, TOTAL 8.5 - 10.2 mg/dL 9.8 9.5 AST 14 - 40 U/L 33 29 AST, LUIS ANTONIO 7 - 40 U/L - - ALT 10 - 54 U/L 36 32 ALT, LUIS ANTONIO 5 - 50 U/L - - ALKALINE PHOSPHATASE 38 - 113 U/L 67 72 Hepatic Function: Creatinine: Creatinine Latest Ref Rng & Units 07/27/2022 01/17/2023 CREAT 0.73 - 1.22 mg/dL 1.23(H) 1.22 ESR/CRP: None on file in the last 6 months Uric Acid: Uric Acid Latest Ref Rng & Units 01/16/2022 01/17/2023 URIC ACID 4.0 - 8.1 mg/dL 5.7 5.7 Open Standing (Multiple Instance) Lab Orders None Open Future (Single Instance) Lab Orders None Marion Durand RN documented in this encounterAk[facility]11-07-[facility]23 Miscellaneous Notes* Telephone Encounter - Usha Crooks MA - 04/08/2023 3:08 PM EST Received that referral/order and insurance ID# didn't come through clear on the fax. Refaxed information. Usha Crooks MA documented in this encounterCleveland [id number] Miscellaneous Notes* Telephone Encounter - Stevan Bridges MD - 04/06/2023 8:29 PM EST The following approved medication requests have been transmitted electronically. Requested Prescriptions Signed Prescriptions Disp Refills FLUoxetine (PROZAC) 10 mg capsule 90 capsule 1 Sig: Take 1 capsule by mouth once daily. Authorizing Provider: STEVAN BRIDGES MD * Telephone Encounter - Jeremy Gee - 04/05/2023 9:51 AM EDT Patient phones requesting refills as follows: Requested Prescriptions Pending Prescriptions Disp Refills FLUoxetine (PROZAC) 10 mg capsule 90 capsule 1 Sig: Take 1 capsule by mouth once daily. BALBINA 01/17/23 DK NOV 08/01/23 PENNY Please review and advise. Jeremy Gee documented in this [facility]10-30-2023 Miscellaneous Notes* Telephone Encounter - Linda Orellana Cma - 03/31/2023 1:19 PM EDT Faxed to [facility] Orellana Cma * Telephone Encounter - Zoey Ramirez APRN.CNP - 03/31/2023 10:12 AM EDT Please let patient know his cpap has been ordered and fax order to [facility]. documented in this [facility]10-13-2023 History of Present illness Narrative* Catie Rain - 03/14/2023 2:54 AM EDT Sleep Study Check-In Documentation Date: March 14, 2023 Name: Basim Alexandra Patient was accompanied by Self. Location: [place] Latex allergy: No Tape allergy: No Current medications were reviewed with the patient:Yes Sleep aid taken by patient for the sleep study: Star of sleep aid: Not Applicable Procedure was explained to the patient and all questions were answered. PAP treatment discussed and shown to patient: Yes If PAP used enter mask info: Mask NameEson 2 MakeF&P MaskTypeNasal Mask SizeMedium Chin Sharp Used No Knowledge Program (KP): KP was not completed [facility] by patient and accepted Study type: Split Study-Polysomnogram with CPAP titration Adverse Event: No (If yes create a new abstract) Comments: Patient was advised to follow up with their ordering provider regarding test results Catie Rain * Yohannes Martinez III, PhD - 03/07/2023 2:18 PM EDT March 07, 2023 Standing PSG Orders signed in the last 90 days None Future PSG Orders signed in the last 90 days Ordered Auth. provider POLYSOMNOGRAM (PSG) [[id number]] 01/17/23 Zoey Ramirez APRN.[employer] [employer] Assoc. diagnoses: Snoring [R06.83] Q: Indications - Select All That Apply: A: Obstructive sleep apnea Q: STOP-BANG conditions - Select All That Apply: A: GENDER = male A2: high blood PRESSURE A3: SNORING that is loud or disruptive A4: OBSERVED sleep apnea Q: Comorbidities: A: Moderate/Severe Cardiac disease Q: Specify Cardiac Disease: A: Other: see comments Q: Is the patient non-ambulatory or will they be accompanied by a caregiver?: A: No Q: Current use of supplemental oxygen during sleep period?: A: No Q: Add supplemental oxygen if needed per sleep lab policy?: A: Yes Q: Is this a repeat Sleep Study?: A: No All Prior Sleep Studies (past 365 days) Some values may be hidden. Unless noted otherwise, only the newest values recorded on each date aredisplayed. Sleep Studies POLYSOMNOGRAM (PSG) Future Expected: Expires: 01/17/24 BMI Readings from Last 2 Encounters: 01/17/23 : 28.93 kg/m 01/17/23 : 28.64 kg/m PAST MEDICAL HISTORY Diagnosis Date Anxiety 03/29/2015 Coronary artery disease due to lipid rich plaque 08/19/[address] Partida Diverticulosis of large intestine without hemorrhage 06/13/2016 Elevated LFTs 06/13/2021 Equinus deformity of foot 03/30/2013 Essential hypertension with goal blood pressure less than 140/90 09/28/2015 Fatty liver 06/13/2021 Gastroesophageal reflux disease without esophagitis 03/29/2015 H/O heart artery stent 05/17/201605/2016: Mid Circ and Obtuse marginal History of ST elevation myocardial infarction (STEMI) 05/17/2016 05/15/2016, seeing Dr. Partida Inguinal hernia of left side without obstruction or gangrene 09/02/2017 Very mild on exam 08/2017 possible early start of. Mixed hyperlipidemia 03/29/2015 Obesity Over weight 02/03/2009 Plantar fasciitis, bilateral 11/10/2018 Seasonal allergies 04/18/2010 Stress reaction 02/19/2017 Well adult exam 04/09/2016 last done: 09/01/2017 The medical record was reviewed to determine if the proposed sleep study conforms to the [facility] Practice Parameters for the Indications for Polysomnography and Related Procedures, or if the sleep studyis indicated for other reasons. Indications for study: JEFF suspected without comorbid medical or sleep disorders Sleep study to be performed: Polysomnogram Special instructions: Target REM/supine sleep Add EtCO2 or Transcutaneous CO2 if available [facility] Staff Note: I have read the above protocol, edited as needed, and agree to the plan. Yohannes Martinez III, PhD 3:39 PM, 03/07/2023 * Magaly Dukes - 02/12/2023 9:49 AM EDT February 12, 2023 An order has been received for Polysomnogram (PSG) from Zoey Eddy a B. [facility] Staff. Visit prep complete. Comments :No The sleep study is scheduled for 03/13. Insurance: Payor: MMO / Plan: MMO SUPERMED PPO / Product Type: PPO / Payer/Plan Subscr Sex Relation Sub. Ins. ID Effective Group Num 1. MMO - MMO SUP* TROY ALEXANDRA 08/03/1976 Female Spouse [id number] 08/31/21 [id number] [address] Magaly [place] documented in this encounter[facility] Miscellaneous Notes* Telephone Encounter - Amarilys Johnson RN - 02/06/2023 3:03 PM EDT Most recent Rheumatology visit: 01/17/2023 (with Viktoria Nichols) Recent Office Visits - This Specialty 01/17/2023 Chronic gout of multiple sites, unspecified cause Rheumatology Viktoria Nichosl MD 07/12/2022 Chronic gout of multiple sites, unspecified cause Rheumatology Viktoria Nichols MD 01/16/2022 Chronic gout of multiple sites, unspecified cause Rheumatology Viktoria Nichols MD Upcoming Rheumatology Appointments - Next 365 Days Visit Type Date Time Department RELL EST [facility] MEDICAL 08/01/2023 2:00 PM [facility]U MAIN A50 CBC: CBC Latest Ref Rng & Units 07/27/2022 01/17/2023 WBC 3.70 - 11.00 k/uL 5.42 5.67 HEMOGLOBIN 13.0 - 17.0 g/dL 14.1 15.5 HEMOGLOBIN, LUIS ANTONIO 13.0 - 17.0 g/dL - - HEMATOCRIT 39.0 - 51.0 % 41.5 43.0 PLATELETS 150 - 400 k/uL 360 193 ABS NEUT (ANC) 1.45 - 7.50 k/uL 3.09 3.09 ABS NEUT, LUIS ANTONIO 1.45 - 7.50 k/uL - - ABS LYMP, LUIS ANTONIO 1.00 - 4.00 k/uL - - ABS LYMPH 1.00 - 4.00 k/uL 1.62 1.84 Vitamin D: None on file in the last 6 months LFT: CMP Latest Ref Rng & Units 07/27/2022 01/17/2023 SODIUM 136 - 144 mmol/L 141 143 SODIUM, LUIS ANTONIO 135 - 146 mmol/L - - SODIUM, LUIS ANTONIO 135 - 146 mmol/L - - POTASSIUM 3.7 - 5.1 mmol/L 4.4 3.9 POTASSIUM, LUIS ANTONIO 3.5 - 5.0 mmol/L - - CHLORIDE 97 - 105 mmol/L 108(H) 107(H) CHLORIDE, LUIS ANTONIO 98 - 110 mmol/L - - CO2 22 - 30 mmol/L 18(L) 18(L) CO2, LUIS ANTONIO 23.0 - 32.0 mmol/L - - GLUCOSE 74 - 99 mg/dL 97 104(H) GLUCOSE, LUIS ANTONIO 65 - 100 mg/dL - - BUN 9 - 24 mg/dL 11 19 BUN, LUIS ANTONIO 10 - 25 mg/dL - - CREATININE 0.73 - 1.22 mg/dL 1.23(H) 1.22 CREATININE, LUIS ANTONIO 0.7 - 1.4 mg/dL - - CALCIUM, LUIS ANTONIO 8.5 - 10.5 mg/dL - - CALCIUM, TOTAL 8.5 - 10.2 mg/dL 9.8 9.5 AST 14 - 40 U/L 33 29 AST, LUIS ANTONIO 7 - 40 U/L - - ALT 10 - 54 U/L 36 32 ALT, LUIS ANTONIO 5 - 50 U/L - - ALKALINE PHOSPHATASE 38 - 113 U/L 67 72 Hepatic Function: Creatinine: Creatinine Latest Ref Rng & Units 07/27/2022 01/17/2023 CREAT 0.73 - 1.22 mg/dL 1.23(H) 1.22 ESR/CRP: None on file in the last 6 months Uric Acid: Uric Acid Latest Ref Rng & Units 01/16/2022 01/17/2023 URIC ACID 4.0 - 8.1 mg/dL 5.7 5.7 Open Standing (Multiple Instance) Lab Orders None Open Future (Single Instance) Lab Orders None documented in this encounterAkron [facility]08-21-2023 Miscellaneous Notes* Telephone Encounter - Linda Orellana Cma - 01/20/2023 8:50 AM EDT Patient notified and verbalized understanding Linda Orellana Cma * Telephone Encounter - Zoey Ramirez APRN.CNP - 01/20/2023 8:40 AM EDT Please let patient know his labs are normal. documented in this encounterAkron [facility]08-18-2023 History of Present illness Narrative* Zoey Ramirez APRN.CNP - 01/17/2023 10:14 AM EDT Chief Complaint Patient presents with: Recheck: Blood pressure HPI Basim Alexandra is a 47 year old male who presents here today for Above Complaints.. Patient presents for BP follow up. Patient reports overall he is feeling well. Patient reports thatin the past he has been told he stops breathing and snoring while sleeping. Past medical history, appointments, medications, allergies reviewed. Previous Medical History PAST MEDICAL HISTORY Diagnosis Date Anxiety 03/29/2015 Coronary artery disease due to lipid rich plaque 08/19/[address] Partida Diverticulosis of large intestine without hemorrhage 06/13/2016 Elevated LFTs 06/13/2021 Equinus deformity of foot 03/30/2013 Essential hypertension with goal blood pressure less than 140/90 09/28/2015 Fatty liver 06/13/2021 Gastroesophageal reflux disease without esophagitis 03/29/2015 H/O heart artery stent 05/17/201605/2016: Mid Circ and Obtuse marginal History of ST elevation myocardial infarction (STEMI) 05/17/2016 05/15/2016, seeing Dr. Partida Inguinal hernia of left side without obstruction or gangrene 09/02/2017 Very mild on exam 08/2017 possible early start of. Mixed hyperlipidemia 03/29/2015 Obesity Over weight 02/03/2009 Plantar fasciitis, bilateral 11/10/2018 Seasonal allergies 04/18/2010 Stress reaction 02/19/2017 Well adult exam 04/09/2016 last done: 09/01/2017 Previous Surgical History PAST SURGICAL HISTORY Procedure Laterality Date 2D ECHO (EXEP) 05/15/2016 EF=45% mod systolic dys, mod papillary muscl dys of MV, mod PA. COLONOSCOPY - DIAGNOSTIC 06/12/2020 PAST SURGICAL HISTORY OF 05/15/2016 Stent to Circ and obtuse marginal RPR 1ST INGUN HRNA AGE 7 YRS/> REDUCIBLE Left 06/15/2018 Hernia repair, inguinal STRESS TEST 02/05/2018 normal stress echo TOOTH EXTRACTION wisdom teeth Family History FAMILY HISTORY Problem Relation Age of Onset Pancreatic Cancer Father 79 other (Afib) Father Alzheimer's Disease Maternal Grandmother Coronary Artery Disease Maternal Grandmother Alzheimer's Disease Maternal Aunt Diabetes Maternal Aunt maternal cousin DM1 Coronary Artery Disease Maternal Grandfather early 50's Coronary Artery Disease Other multiple maternal cousins with Stents Depression Mother Hyperlipidemia Mother No Known Problems Sister Anesthesia Problems No Family History Blood Clots No Family History Clotting Disorder No Family History Patient Allergies ALLERGIES Allergen Reactions Azithromycin Shortness of Breath Erythromycin GI Upset Current Medications Current Outpatient Medications on File Prior to Visit Medication Sig febuxostat (ULORIC) 40 mg tab TAKE 1 TABLET ONCE DAILY pantoprazole DR (PROTONIX) 40 mg tablet TAKE 1 TABLET DAILY BEFORE BREAKFAST. TAKE ON EMPTY STOMACH, ONE HALF HOUR BEFORE A MEAL FLUoxetine (PROZAC) 10 mg capsule Take 1 capsule by mouth once daily. atorvastatin (LIPITOR) 40 mg tablet Take 1 tablet by mouth once daily. colchicine 0.6 mg tablet TAKE 1 TABLET EVERY 48-72 HOURS lisinopril (ZESTRIL, PRINIVIL) 5 mg tablet Take 1 tablet by mouth once daily. febuxostat (ULORIC) 40 mg tab Take 1 tablet by mouth once daily. sour monsalve extract (TART MONSALVE EXTRACT ORAL) Take 1,200 mg by mouth twice daily. aspirin, enteric coated (ASPIR-81) 81 mg EC tablet Take 1 tablet by mouth once daily. metoprolol succinate ER (TOPROL XL) 25 mg 24 hr tablet Take 0.5 tablets by mouth once daily. ticagrelor (BRILINTA) 90 mg tablet Take 1 tablet by mouth twice daily. cetirizine (ZYRTEC) 10 mg tablet Take 1 tablet by mouth once daily. IBUPROFEN 200 MG CAP take 2-3 as needed No current facility-administered medications on file prior to visit. Social History Social History Tobacco Use Smoking status: Never Smokeless tobacco: Never Vaping Use Vaping Use: Never used Substance Use Topics Alcohol use: Yes Comment: 3 BEERS DAILY Drug use: No Review of Symptoms REVIEW OF SYSTEMS SEE HPI EXAM: BP 120/86 (BP Site: Right Arm, BP Position: Sitting, BP Cuff Size: Large Adult) Pulse 62 Temp 36.3 C (97.3 F) Resp 16 Wt 98.4 kg (217 lb) BMI 28.64 kg/m General Appearance: Well appearing, alert, in no acute distress, well-hydrated, well nourished.. Lungs: Lungs clear to auscultation. No wheezing, rhonchi, rales.. Heart: RRR without murmur, gallop, or rubs. No ectopy. Health Maintenance List HEPATITIS B(1 of 3 - 3-dose series) Never done COLORECTAL CANCER SCREENING due on 2022 INFLUENZA(1) due on 01/31/2023 ANNUAL PCP TEAM CHRONIC DISEASE VISIT due on 07/12/2023 BP CONTROLLED (<130/80) due on 07/12/2023 LDL CHOLESTEROL due on 07/27/2023 DTAP,TDAP,TD(2 - Td or Tdap) due on 07/22/2024 DIABETES SCREEN due on 07/27/2025 LIPID SCREEN due on 07/27/2027 DEPRESSION ASSESSMENT Completed COVID-19 VACCINE Completed HPV VACCINE Aged Out HEPATITIS C SCREENING Discontinued HIV SCREENING Discontinued ASSESSMENT/PLAN: 1. Snoring - ICD9: 786.09, ICD10: R06.83 (primary diagnosis) Stable - POLYSOMNOGRAM (PSG) 2. Essential hypertension with goal blood pressure less than 140/90 - ICD9: 401.9, ICD10: I10 - Controlled - Continue current medications - Recommend home blood pressure monitoring, to bring results to next visit - Encouraged sodium restriction, DASH or Mediterranean diet - Recommend regular aerobic exercise - Discussed need for and benefit of weight loss. BMI 28.63 kg/(m^2) - Reviewed risks of hypertension and principles of treatment Zoey Ramirez APRN.[employer] ATTENDANT documented in this encounterAk[facility]08-11-2023 History of Present illness Narrative* Chanel Shahid Ma - 01/10/2023 11:54 AM EDT Scan on 01/10/2023 9:38 AM by Provider, DELIA Esparza: Consultation - Cardiology documented in this encounterAkron [facility]05-31-2023 Miscellaneous Notes* Telephone Encounter - Jeremy Gee LPN - 10/30/2022 1:59 PM EDT Patient phones requesting refills as follows: Requested Prescriptions Pending Prescriptions Disp Refills pantoprazole DR (PROTONIX) 40 mg tablet 90 tablet 1 Sig: TAKE 1 TABLET DAILY BEFORE BREAKFAST. TAKE ON EMPTY STOMACH, ONE HALF HOUR BEFORE A MEAL [place] 07/12/22 NOV 01/17/23 Please review and advise. Jeremy Gee LPN documented in this encounterAk[facility]03-23-2023 Miscellaneous Notes* Telephone Encounter - Usha Crooks MA - 08/22/2022 8:32 AM EDT Patient has been identified by name and date of : Yes Requested Prescriptions Pending Prescriptions Disp Refills FLUoxetine (PROZAC) 10 mg capsule 90 capsule 1 Sig: Take 1 capsule by mouth once daily. RX INSTRUCTIONS: Patient aware RX will be sent to pharmacy. No need to notify patient. Usha Crooks MA [place]; 07/2022 Nov: 12/2022 Last refill: 03/2022 documented in this [facility]03-20-2023 Miscellaneous Notes* Telephone Encounter - Pita Hanson RN - 08/19/2022 11:06 AM EDT Most recent Rheumatology visit: 07/12/2022 (with Viktoria Nichols) Recent Office Visits - This Specialty 07/12/2022 Chronic gout of multiple sites, unspecified cause Rheumatology Viktoria Nichols MD 01/16/2022 Chronic gout of multiple sites, unspecified cause Rheumatology Viktoria Nichols MD 08/24/2021 G6PD deficiency Rheumatology Viktoria Nichols MD Upcoming Rheumatology Appointments - Next 365 Days Visit Type Date Time Department RELL EST [facility] MEDICAL EXT 01/17/2023 4:00 PM [facility] MAIN A50 CBC: CBC Latest Ref Rng & Units 01/16/2022 07/27/2022 WBC 3.70 - 11.00 k/uL 5.31 5.42 HEMOGLOBIN 13.0 - 17.0 g/dL 15.4 14.1 HEMOGLOBIN, LUIS ANTONIO 13.0 - 17.0 g/dL - - HEMATOCRIT 39.0 - 51.0 % 43.6 41.5 PLATELETS 150 - 400 k/uL 208 360 ABS NEUT (ANC) 1.45 - 7.50 k/uL 2.26 3.09 ABS NEUT, LUIS ANTONIO 1.45 - 7.50 k/uL - - ABS LYMP, LUIS ANTONIO 1.00 - 4.00 k/uL - - ABS LYMPH 1.00 - 4.00 k/uL 1.96 1.62 Vitamin D: None on file in the last 6 months LFT: CMP Latest Ref Rng & Units 01/16/2022 07/27/2022 SODIUM 136 - 144 mmol/L 137 141 SODIUM, LUIS ANTONIO 135 - 146 mmol/L - - SODIUM, LUIS ANTONIO 135 - 146 mmol/L - - POTASSIUM 3.7 - 5.1 mmol/L 4.1 4.4 POTASSIUM, LUIS ANTONIO 3.5 - 5.0 mmol/L - - CHLORIDE 97 - 105 mmol/L 104 108(H) CHLORIDE, LUIS ANTONIO 98 - 110 mmol/L - - CO2 22 - 30 mmol/L 22 18(L) CO2, LUIS ANTONIO 23.0 - 32.0 mmol/L - - GLUCOSE 74 - 99 mg/dL 86 97 GLUCOSE, LUIS ANTONIO 65 - 100 mg/dL - - BUN 9 - 24 mg/dL 18 11 BUN, LUIS ANTONIO 10 - 25 mg/dL - - CREATININE 0.73 - 1.22 mg/dL 1.09 1.23(H) CREATININE, LUIS ANTONIO 0.7 - 1.4 mg/dL - - CALCIUM, LUIS ANTONIO 8.5 - 10.5 mg/dL - - CALCIUM, TOTAL 8.5 - 10.2 mg/dL 9.8 9.8 AST 14 - 40 U/L 50(H) 33 AST, LUIS ANTONIO 7 - 40 U/L - - ALT 10 - 54 U/L 62(H) 36 ALT, LUIS ANTONIO 5 - 50 U/L - - ALKALINE PHOSPHATASE 38 - 113 U/L 63 67 Creatinine: Creatinine Latest Ref Rng & Units 01/16/2022 07/27/2022 CREAT 0.73 - 1.22 mg/dL 1.09 1.23(H) ESR/CRP: None on file in the last 6 months Uric Acid: None on file in the last 6 months Open Standing (Multiple Instance) Lab Orders None Open Future (Single Instance) Lab Orders None * Telephone Encounter - Minesh Foster - 08/19/2022 9:20 AM EDT 4 documented in this encounterAkron [facility]03-20-2023 Miscellaneous Notes* Telephone Encounter - Karan Vaughan RN - 08/19/2022 10:11 AM EDT Most recent Rheumatology visit: 07/12/2022 (with Viktoria Nichols) Recent Office Visits - This Specialty 07/12/2022 Chronic gout of multiple sites, unspecified cause Rheumatology Viktoria Nichols MD 01/16/2022 Chronic gout of multiple sites, unspecified cause Rheumatology Viktoria Nichols MD 08/24/2021 G6PD deficiency Rheumatology Viktoria Nichols MD Upcoming Rheumatology Appointments - Next 365 Days Visit Type Date Time Department RELL EST [facility] MEDICAL EXT 01/17/2023 4:00 PM [facility] MAIN A50 CBC: CBC Latest Ref Rng & Units 01/16/2022 07/27/2022 WBC 3.70 - 11.00 k/uL 5.31 5.42 HEMOGLOBIN 13.0 - 17.0 g/dL 15.4 14.1 HEMOGLOBIN, LUIS ANTONIO 13.0 - 17.0 g/dL - - HEMATOCRIT 39.0 - 51.0 % 43.6 41.5 PLATELETS 150 - 400 k/uL 208 360 ABS NEUT (ANC) 1.45 - 7.50 k/uL 2.26 3.09 ABS NEUT, LUIS ANTONIO 1.45 - 7.50 k/uL - - ABS LYMP, LUIS ANTONIO 1.00 - 4.00 k/uL - - ABS LYMPH 1.00 - 4.00 k/uL 1.96 1.62 Vitamin D: None on file in the last 6 months LFT: CMP Latest Ref Rng & Units 01/16/2022 07/27/2022 SODIUM 136 - 144 mmol/L 137 141 SODIUM, LUIS ANTONIO 135 - 146 mmol/L - - SODIUM, LUIS ANTONIO 135 - 146 mmol/L - - POTASSIUM 3.7 - 5.1 mmol/L 4.1 4.4 POTASSIUM, LUIS ANTONIO 3.5 - 5.0 mmol/L - - CHLORIDE 97 - 105 mmol/L 104 108(H) CHLORIDE, LUIS ANTONIO 98 - 110 mmol/L - - CO2 22 - 30 mmol/L 22 18(L) CO2, LUIS ANTONIO 23.0 - 32.0 mmol/L - - GLUCOSE 74 - 99 mg/dL 86 97 GLUCOSE, LUIS ANTONIO 65 - 100 mg/dL - - BUN 9 - 24 mg/dL 18 11 BUN, LUIS ANTONIO 10 - 25 mg/dL - - CREATININE 0.73 - 1.22 mg/dL 1.09 1.23(H) CREATININE, LUIS ANTONIO 0.7 - 1.4 mg/dL - - CALCIUM, LUIS ANTONIO 8.5 - 10.5 mg/dL - - CALCIUM, TOTAL 8.5 - 10.2 mg/dL 9.8 9.8 AST 14 - 40 U/L 50(H) 33 AST, LUIS ANTONIO 7 - 40 U/L - - ALT 10 - 54 U/L 62(H) 36 ALT, LUIS ANTONIO 5 - 50 U/L - - ALKALINE PHOSPHATASE 38 - 113 U/L 63 67 Creatinine: Creatinine Latest Ref Rng & Units 01/16/2022 07/27/2022 CREAT 0.73 - 1.22 mg/dL 1.09 1.23(H) ESR/CRP: None on file in the last 6 months Uric Acid: None on file in the last 6 months Open Standing (Multiple Instance) Lab Orders None Open Future (Single Instance) Lab Orders None Requested Prescriptions Pending Prescriptions Disp Refills febuxostat (ULORIC) 40 mg tab 90 tablet 0 Sig: Take 1 tablet by mouth once daily. documented in this encounterAkron [facility]02-28-2023 Miscellaneous Notes* Telephone Encounter - Rachel Olivas RN - 07/30/2022 8:37 AM EST Pt called and is notified of providers results. Pt voices understanding. Rachel Olivas RN * Telephone Encounter - Leticia Prasad PA-C - 07/30/2022 8:27 AM EST Please let patient know that overall labs look good. documented in this encounterAkron [facility]02-10-2023 Instructions* Patient Instructions* Viktoria Nichols MD - 07/12/2022 5:13 PM EST Continue uloric, colchicine I have sent prednisone in the event you experience a gout flare you can take this prednisone taper Please complete blood work so we can see where your uric acid # is Continue to abstain from diet high in purines like red meat shell fish shrimp soda/pop documented in this encounterAkron [facility]02-10-2023 History of Present illness Narrative* Viktoria Nichols MD - 07/12/2022 4:50 PM EST Images from the original note were not included. Rheumatology History & Physical Patient name: Basim Alexandra Requesting provider: No att. providers found SUBJECTIVE INITIAL RHEUMATOLOGY VISIT 01/16/2022 (with Viktoria Nichols): Mr. Basim Alexandra is a 46 year old male who has a past medical history of polyarticular tophaceous gout, CAD (STEMI) s/p PCI, anxiety, transaminitis, HTN, fatty liver, GERD, Anxiety/depressoin, inguinal hernia, HLD, seasonal allergies who presents for rheumatology evaluation. Previously evaluated by Dr. Salguero - cruz to me. PSHx: He has a past surgical history that includes tooth extraction; past surgical history of (05/15/2016); 2d echo (exep) (05/15/2016); stress test (02/05/2018); rpr 1st ingun hrna age 7 yrs/> reducible (Left, 06/15/2018); and colonoscopy - diagnostic (06/12/2020). Allergies: He is allergic to azithromycin and erythromycin. Current Meds: selenium sulfide, pantoprazole, fluoxetine, atorvastatin, colchicine 0.6mg q2 days, febuxostat 40mg/d, sour monsalve extract, aspirin, enteric coated, metoprolol succinate er, lisinopril,ticagrelor, cetirizine, ibuprofen Family History: family history includes Afib in his father; Alzheimer's Disease in his maternal aunt and maternal grandmother; Coronary Artery Disease in his maternal grandfather, maternal grandmother, and another family member; Depression in his mother; Diabetes in his maternal aunt; Hyperlipidemia in his mother; No Known Problems in his sister; Pancreatic Cancer (age of onset: 79) in his father. gout, nephrolithiasis in his father Social History: He reports that he has never smoked. He has never used smokeless tobacco. He reports current alcohol use. He reports that he does not use drugs. Labs: CBC Latest Ref Rng & Units 01/16/2022 10/17/2021 05/29/2021 02/19/2021 WBC 3.70 - 11.00 k/uL 5.31 4.59 5.95 5.32 HEMOGLOBIN 13.0 - 17.0 g/dL 15.4 15.6 16.1 14.8 HEMOGLOBIN, LUIS ANTONIO 13.0 - 17.0 g/dL - - - - HEMATOCRIT 39.0 - 51.0 % 43.6 45.2 46.7 42.1 PLATELETS 150 - 400 k/uL 208 199 225 189 ABS NEUT (ANC) 1.45 - 7.50 k/uL 2.26 2.41 2.86 2.61 ABS NEUT, LUIS ANTONIO 1.45 - 7.50 k/uL - - - - ABS LYMP, LUIS ANTONIO 1.00 - 4.00 k/uL - - - - ABS LYMPH 1.00 - 4.00 k/uL 1.96 1.38 2.02 1.75 CMP Latest Ref Rng & Units 01/16/2022 11/23/2021 10/17/2021 05/29/2021 SODIUM 136 - 144 mmol/L 137 134(L) 140 138 SODIUM, LUIS ANTONIO 135 - 146 mmol/L - - - - SODIUM, LUIS ANTONIO 135 - 146 mmol/L - - - - POTASSIUM 3.7 - 5.1 mmol/L 4.1 4.2 4.3 4.1 POTASSIUM, LUIS ANTONIO 3.5 - 5.0 mmol/L - - - - CHLORIDE 97 - 105 mmol/L 104 100 104 103 CHLORIDE, LUIS ANTONIO 98 - 110 mmol/L - - - - CO2 22 - 30 mmol/L 22 16(L) 23 19(L) CO2, LUIS ANTONIO 23.0 - 32.0 mmol/L - - - - GLUCOSE 74 - 99 mg/dL 86 95 101(H) 100(H) GLUCOSE, LUIS ANTONIO 65 - 100 mg/dL - - - - BUN 9 - 24 mg/dL 18 17 14 16 BUN, LUIS ANTONIO 10 - 25 mg/dL - - - - CREATININE 0.73 - 1.22 mg/dL 1.09 1.24(H) 1.16 1.11 CREATININE, LUIS ANTONIO 0.7 - 1.4 mg/dL - - - - CALCIUM, LUIS ANTONIO 8.5 - 10.5 mg/dL - - - - CALCIUM, TOTAL 8.5 - 10.2 mg/dL 9.8 9.7 9.8 10.3(H) AST 14 - 40 U/L 50(H) 43(H) 43(H) 56(H) AST, LUIS ANTONIO 7 - 40 U/L - - - - ALT 10 - 54 U/L 62(H) 55(H) 58(H) 67(H) ALT, LUIS ANTONIO 5 - 50 U/L - - - - ALKALINE PHOSPHATASE 38 - 113 U/L 63 69 63 65 Uric Acid [facility] Ref Rng & Units 01/16/2022 10/17/2021 02/19/2021 08/14/2020 URIC ACID 4.0 - 8.1 mg/dL 5.7 6.1 5.1 5.2 ESR, WSR Latest Ref Rng & Units 01/16/2022 10/17/2021 11/18/2018 05/09/2006 WSR 0 - 15 mm/hr 2 2 28(H) - SED RATE, LUIS ANTONIO 0 - 10 mm/hr - - - 1 CRP Latest Ref Rng & Units 01/16/2022 10/17/2021 11/18/2018 CRP <0.9 mg/dL 0.3 <0.3 0.8 RF and CCP Latest Ref Rng & Units 10/17/2021 11/18/2018 RHEUMATOID FACTOR <16 IU/mL 27(H) <10 CCP ANTIBODY IGG QUALITATIVE Negative Negative - CCP ANTIBODY, IGG <20 Units <15 <15 Hepatitis Screen Latest Ref Rng & Units 11/23/2021 10/17/2021 HEPAIGM Negative Negative - HEPBCIGM Negative Negative - HEPBCOTOL Negative - Negative HEPSABQ Negative - Negative HEPCABEIA Negative - Negative HBSAG Negative Negative Negative TB Screen 10/17/2021 TBGINT Infection with M. tuberculosis complex is unlikely. If latent tuberculosis infection is highly suspected, a negative result does not rule out the infection. Specimens from immunocompromised patients and those <5 years of age may show false negative results. In case of a contact investigation, please repeat 8-12 weeks after a known exposure. TBGRES Negative Antibodies Latest Ref Rng & Units 11/18/2018 LESLIE BY EIA OD Ratio 0.2 LESLIE BY EIA, QUAL Negative Negative Urinalysis Latest Ref Rng & Units 05/29/2021 02/19/2021 12/17/2019 08/11/2019 PROTEIN, URINE Negative Negative Negative Negative Negative RBC, URINE 0 - 3 /HPF 0-3 0-3 0-3 0-3 RBC, URINE, LUIS ANTONIO /hpf - - - - TPMT amd G6PD Latest Ref Rng & Units 10/17/2021 G-6-PD QUANTITATIVE 9.8 - 15.5 U/g Hb 11.8 Labs: 05/22: sCr WNL; ALT 67, AST 56, A1c 5.2%; CBC WNL 02/20: uric acid 5.1 11/18: (-) LESLIE, RF, CCP; SPEP (-) M protein 11/18 R olecranon Bursa Aspiration - TNC [id number] Positive for crystals with polarizing properties of uric acid. Abnormal Uric acid trend: 8.1 (2018) --> 10.4 (11/18) --> 6.1 (12/18) --> 5.7 (08/19) --> 5.9 (12/19) --> 5.2 (08/20) --> 5.1 (02/20) Imaging: XR R FOOT 2019: MILD HALLUX VALGUS AND PLANTAR CALCANEAL SPUR. XR L FOOT 2019: No acute fracture or dislocation. XR HANDS 2019: No acute abnormality RHEUMATOLOGY EVALUATION 08/24/2021 Patient seen and examined - new to me - last saw Dr. Salguero a few months ago - h/o crystal proven polyarticular tophaceous gout. Notes his first gout flare was about ~3-4 years ago - has experienced recurrent flares in olecranonbursa (gouty olecranon bursitis), knees, ankles and dorsum of feet - no h/o 1st MTP involvement/podagra. Has never been on allopurinol - currently on febuxostat 40mg/d and colchicine 0.6mg q2 days- Which was prescribed by Dr. Salguero. History of mild transaminitis. Tophi: present - over elbows - notes these are reducing in size Last gouty flare - 2 years ago FHx of gout and nephrolithiasis in his father. He does not have a personal h/o nephrolithiasis. He is not on any diuretics. Hx CAD (STEMI) s/p PCI - follows with cardiology regularly. Last labs noted normal renal fx. Diet - states he has red meat here and there but admits to consuming 3-4 beers a night. Answers for HPI/ROS submitted by the patient on 08/24/2021 Fever : No Recent Unintentional Weight Change: No Eye Pain: No Eye Redness: No Vision Disturbance: No Eye Dryness: No Nose Bleeds: No Sores in your Mouth: No Trouble Swallowing: No Dry Mouth: No Chest Pain: No Leg Swelling: No A Cough: No Shortness of Breath: No Pain with Breathing: No Heartburn: No Abdominal Pain: No Diarrhea: No Black Tarry Stools: No Blood in Urine: No Pain or Burning with Urination: No Joint Pain or Stiffness: Yes Muscle Weakness: No Muscle Aches: No Joint Swelling: No Morning Stiffness in Joints: No A Rash: No Skin Color Changes: No Hair Loss: No Nail Changes: No Headaches: No Numbness: No Memory Loss: No Swollen Glands: No RHEUMATOLOGY FOLLOW UP VISIT 01/21: Patient seen and examined at [facility] rheumatology clinic for a follow up visit. Diagnostics since last visit: Recent Diagnostics: 11/21: ALT 55 AST 43 10/21: sCr WNL; ALT 58; AST 43; (-) Hepatitis; RF 27 (-)CCP; uric acid 6.1; CBC WNL; ESR 2; G6PD WNL XR ELBOWS/HANDS/KNEES/FEET: Bilateral olecranon bursitis, slightly greater on the LEFT. Nonspecificmild LEFT prepatellar/infrapatellar soft tissue swelling. Mild degenerative change LEFT navicular cuneiform joint. Otherwise, no significant bone or articular abnormality. Patient seen and examined this morning. Overall feels well - currently in intercritical gout - Since last visit no recent gout flares overall feeling well - currently on febuxostat 40mg/d, consuming a lo tof tart monsalve juice, and remains on ppx with colchicine 0.6mg q2days. RHEUMATOLOGY FOLLOW UP VISIT 07/12/2022: Patient seen and examined at [facility] rheumatology clinic for a follow up visit. Diagnostics since last visit: 01/21: sCr WNL ALT 62 AST 50 uric acid WNL 5.7 ESR/CRP WNL CBC WNL Today, patient seen and examined. Reviewed recent labs with patient - feels well, no recent gout flares since we last met. 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 Trying to stay activein gym/[employer]. Currently intercritical gout - on uloric 40mg/day and colcrys for flare ppx 0.6mg MWF -has never been on allopurinol in the past. OBJECTIVE 07/12/22 1637 BP: 108/74 Pulse: 70 Weight: 102.4 kg (225 lb 12.8 oz) Height: 185.4 cm (6' 0.99") General: No acute distress. Eye: Pupils are equal, round and reactive to light, Extraocular movements are intact, Normal conjunctiva. HENT: Oral mucosa is moist, no oral ulcerations, no areas of alopecia appreciated Neck: Supple, Non-tender. No lymphadenopathy Respiratory: Lungs are clear to auscultation, Respirations are non-labored, Breath sounds are equal. Cardiovascular: Normal rate, Regular rhythm. Gastrointestinal: soft, non-tender, non-distended. Musculoskeletal: tophi noted over b/l elbows/olecranon bursa which are reducing in size; otherwise no synovitis Integumentary: Warm, Dry. No rash Neurologic: Alert, Oriented. Psychiatric: Cooperative. IMPRESSION & RECOMMENDATIONS Mr. Basim Alexandra is a 47 year old male who has a past medical history of polyarticular tophaceous gout, CAD (STEMI) s/p PCI, anxiety, transaminitis, HTN, fatty liver, GERD, Anxiety/depressoin, inguinal hernia, HLD, seasonal allergies who presents for rheumatology evaluation. Previously evaluated by Dr. Salguero - cruz to me. [facility] Diagnostics: 01/21: sCr WNL ALT 62 AST 50 uric acid WNL 5.7 ESR/CRP WNL CBC WNL 11/21: ALT 55 AST 43 10/21: sCr WNL; ALT 58; AST 43; (-) Hepatitis; RF 27 (-)CCP; uric acid 6.1; CBC WNL; ESR 2; G6PD WNL 05/22: sCr WNL; ALT 67, AST 56, A1c 5.2%; CBC WNL 02/20: uric acid 5.1 11/18: (-) LESLIE, RF, CCP; SPEP (-) M protein 11/18 R olecranon Bursa Aspiration - TNC 3491 Positive for crystals with polarizing properties of uric acid. Abnormal Polyarticular Tophaceous Crystal Proven Gout -FHx gout and nephrolithiasis in his father -Personal h/o tophaceous gout affecting olecranon bursa, knees, ankles, dorsum of feet -last flare > 2 years ago -R olecranon bursa aspiration +MSU crystals in 2019 -currently on febuxostat 40mg/d & colchicine 0.6mg MWF -has never been on allopurinol -h/o transaminitis will monitor closely - if rising LFT >2-3X ULN would switch ULT to allopurinol d/t concern for DILI (case d/w [facility] rheumatology pharmacist) -counseled patient extensively on low purine diet and minimizing beer intake -h/o CAD s/p PCI - counseled extensively regarding relationship of gout with metabolic syndrome, cardiovascular disease -Will follow up labs (recent G6PD WNL in the event pegloticase is considered in future) -Rx: medrol dose mark - instructed patient to take if and only if he has sx c/w gouty flare -in the setting of tophaceous gout, goal sUA < 5 I spent a total of 20 minutes on the date of the service which included preparing to see the patient, [id number] patient care, completing clinical documentation, obtaining and/or reviewing separately obtained history, performing a medically appropriate examination, counseling and educating the pat ient/family/caregiver, ordering medications, tests, or procedures, communicating results to the patient/family/caregiver and care coordination (not separately reported). Viktoria Nichols MD Rheumatology Staff documented in this encounterAk[facility] Instructions* Patient Instructions* Zoey Ramirez APRN.CNP - 07/12/2022 11:22 AM EST Complete labs Continue current medications Follow up in 6 months. documented in this encounterAkron [facility]23 History of Present illness Narrative* Zoey Ramirez APRN.CNP - 07/12/2022 11:08 AM EST Chief Complaint Patient presents with: Physical HPI Basim Alexandra is a 47 year old male who presents here today for Above Complaints.. Patient presents for routine 6 month follow up. Patient has a history of HTN, HLD, CAD. Patient states he feels well and has no complaints. Patient follow with rheumatology for tophus gout. Past medical history, appointments, medications, allergies reviewed. Previous Medical History PAST MEDICAL HISTORY Diagnosis Date Anxiety 03/29/2015 Coronary artery disease due to lipid rich plaque 08/19/[address] Partida Diverticulosis of large intestine without hemorrhage 06/13/2016 Elevated LFTs 06/13/2021 Equinus deformity of foot 03/30/2013 Essential hypertension with goal blood pressure less than 140/90 09/28/2015 Fatty liver 06/13/2021 Gastroesophageal reflux disease without esophagitis 03/29/2015 H/O heart artery stent 05/17/201605/2016: Mid Circ and Obtuse marginal History of ST elevation myocardial infarction (STEMI) 05/17/2016 05/15/2016, seeing Dr. Partida Inguinal hernia of left side without obstruction or gangrene 09/02/2017 Very mild on exam 08/2017 possible early start of. Mixed hyperlipidemia 03/29/2015 Obesity Over weight 02/03/2009 Plantar fasciitis, bilateral 11/10/2018 Seasonal allergies 04/18/2010 Stress reaction 02/19/2017 Well adult exam 04/09/2016 last done: 09/01/2017 Previous Surgical History PAST SURGICAL HISTORY Procedure Laterality Date 2D ECHO (EXEP) 05/15/2016 EF=45% mod systolic dys, mod papillary muscl dys of MV, mod PA. COLONOSCOPY - DIAGNOSTIC 06/12/2020 PAST SURGICAL HISTORY OF 05/15/2016 Stent to Circ and obtuse marginal RPR 1ST INGUN HRNA AGE 7 YRS/> REDUCIBLE Left 06/15/2018 Hernia repair, inguinal STRESS TEST 02/05/2018 normal stress echo TOOTH EXTRACTION wisdom teeth Family History FAMILY HISTORY Problem Relation Age of Onset Pancreatic Cancer Father 79 other (Afib) Father Alzheimer's Disease Maternal Grandmother Coronary Artery Disease Maternal Grandmother Alzheimer's Disease Maternal Aunt Diabetes Maternal Aunt maternal cousin DM1 Coronary Artery Disease Maternal Grandfather early 50's Coronary Artery Disease Other multiple maternal cousins with Stents Depression Mother Hyperlipidemia Mother No Known Problems Sister Anesthesia Problems No Family History Blood Clots No Family History Clotting Disorder No Family History Patient Allergies ALLERGIES Allergen Reactions Azithromycin Shortness of Breath Erythromycin GI Upset Current Medications Current Outpatient Medications on File Prior to Visit Medication Sig colchicine 0.6 mg tablet TAKE 1 TABLET EVERY 48-72 HOURS febuxostat (ULORIC) 40 mg tab TAKE 1 TABLET ONCE DAILY atorvastatin (LIPITOR) 40 mg tablet TAKE 1 TABLET ONCE DAILY FOR CHOLESTEROL. pantoprazole DR (PROTONIX) 40 mg tablet TAKE 1 TABLET DAILY BEFORE BREAKFAST. TAKE ON EMPTY STOMACH, ONE HALF HOUR BEFORE A MEAL FLUoxetine (PROZAC) 10 mg capsule Take 1 capsule by mouth once daily. lisinopril (ZESTRIL, PRINIVIL) 5 mg tablet Take 1 tablet by mouth once daily. febuxostat (ULORIC) 40 mg tab Take 1 tablet by mouth once daily. sour monsalve extract (TART MONSALVE EXTRACT ORAL) Take 1,200 mg by mouth twice daily. aspirin, enteric coated (ASPIR-81) 81 mg EC tablet Take 1 tablet by mouth once daily. metoprolol succinate ER (TOPROL XL) 25 mg 24 hr tablet Take 0.5 tablets by mouth once daily. ticagrelor (BRILINTA) 90 mg tablet Take 1 tablet by mouth twice daily. cetirizine (ZYRTEC) 10 mg tablet Take 1 tablet by mouth once daily. IBUPROFEN 200 MG CAP take 2-3 as needed No current facility-administered medications on file prior to visit. Social History Social History Tobacco Use Smoking status: Never Smokeless tobacco: Never Vaping Use Vaping Use: Never used Substance Use Topics Alcohol use: Yes Comment: 3 BEERS DAILY Drug use: No Review of Symptoms REVIEW OF SYSTEMS SEE HPI EXAM: BP 122/76 Pulse (!) 56 Resp 14 Ht 185.4 cm (6' 1") Wt 101.2 kg (223 lb) BMI 29.42 kg/m General Appearance: Well appearing, alert, in no acute distress, well-hydrated, well nourished.. Skin: Skin color, texture, turgor normal, no suspicious rashes or lesions. Neck: Supple, no adenopathy; thyroid symmetric, normal size, no bruits. Lungs: Lungs clear to auscultation. No wheezing, rhonchi, rales.. Heart: RRR without murmur, gallop, or rubs. No ectopy. Abdomen: Normal abdominal exam, Abdomen soft, non-tender. Bowel sounds normal. No masses, organomegaly. Extremities: No deformities, edema, skin discoloration, clubbing or cyanosis. Good capillary refill. . Musculoskeletal: No joint swelling, deformity, or tenderness. Peripheral Pulses: Normal. Neurologic: Gait normal. Reflexes normal and symmetric. Sensation grossly intact.. Health Maintenance List HEPATITIS B(1 of 3 - 3-dose series) Never done BP CONTROLLED (<130/80) due on 11/25/2021 DEPRESSION ASSESSMENT Never done COLORECTAL CANCER SCREENING due on 2022 LDL CHOLESTEROL due on 11/23/2022 ANNUAL PCP TEAM CHRONIC DISEASE VISIT due on 12/18/2022 DTAP,TDAP,TD(2 - Td or Tdap) due on 07/22/2024 DIABETES SCREEN due on 01/16/2025 LIPID SCREEN due on 11/23/2026 INFLUENZA Completed COVID-19 VACCINE Completed HEPATITIS C SCREENING Discontinued HIV SCREENING Discontinued ASSESSMENT/PLAN: 1. Essential hypertension with goal blood pressure less than 140/90 - ICD9: 401.9, ICD10: I10 (primary diagnosis) - good control - Continue current medication(s) - Encouraged dietary sodium restriction/DASH diet - Recommended regular aerobic exercise. - Recommend home blood pressure monitoring, to bring results in on next visit - Discussed need and benefit for weight loss. - Goal of BP <130/80 2. Gastroesophageal reflux disease without esophagitis - ICD9: 530.81, ICD10: K21.9 - Discussed lifestyle modifications including losing weight, limiting caffeine, no meals three hours before sleep, and head of bed elevation - Continue treatment with Nexium 40 mg QD - Follow up in 6weeks 3. Mixed hyperlipidemia - ICD9: 272.2, ICD10: E78.2 - to be determined upon return of lab results - Continue current medication. - Encouraged following a low fat, low cholesterol diet. - Discussed the benefits of regular aerobic exercise and weight loss. - Check fasting lipid panel and ALT. - Encouraged following a low carbohydrate, healthy oil intake diet. 4. Over weight - ICD9: 278.02, ICD10: E66.3 Stable - Behavioral intervention Zoey Ramirez APRN.RIVER documented in this encounterAkron [facility]01-11-2023 Miscellaneous Notes* Telephone Encounter - Amarilys Johnson RN - 06/12/2022 9:05 AM EST Most recent Rheumatology visit: 01/16/2022 (with Viktoria Nichols) Recent Office Visits - This Specialty 01/16/2022 Chronic gout of multiple sites, unspecified cause Rheumatology Viktoria Nichols MD 08/24/2021 G6PD deficiency Rheumatology Viktoria Nichols MD 02/19/2021 Chronic gout of multiple sites, unspecified cause Rheumatology Alfred Salguero, DO Upcoming Rheumatology Appointments - Next 365 Days Visit Type Date Time Department RELL EST [facility] 07/12/2022 4:30 PM [facility] A[facility] CBC: CBC Latest Ref Rng & Units 10/17/2021 01/16/2022 WBC 3.70 - 11.00 k/uL 4.59 5.31 HEMOGLOBIN 13.0 - 17.0 g/dL 15.6 15.4 HEMOGLOBIN, LUIS ANTONIO 13.0 - 17.0 g/dL - - HEMATOCRIT 39.0 - 51.0 % 45.2 43.6 PLATELETS 150 - 400 k/uL 199 208 ABS NEUT (ANC) 1.45 - 7.50 k/uL 2.41 2.26 ABS NEUT, LUIS ANTONIO 1.45 - 7.50 k/uL - - ABS LYMP, LUIS ANTONIO 1.00 - 4.00 k/uL - - ABS LYMPH 1.00 - 4.00 k/uL 1.38 1.96 Vitamin D: None on file in the last 6 months LFT: CMP Latest Ref Rng & Units 11/23/2021 01/16/2022 SODIUM 136 - 144 mmol/L 134(L) 137 SODIUM, LUIS ANTONIO 135 - 146 mmol/L - - SODIUM, LUIS ANTONIO 135 - 146 mmol/L - - POTASSIUM 3.7 - 5.1 mmol/L 4.2 4.1 POTASSIUM, LUIS ANTONIO 3.5 - 5.0 mmol/L - - CHLORIDE 97 - 105 mmol/L 100 104 CHLORIDE, LUIS ANTONIO 98 - 110 mmol/L - - CO2 22 - 30 mmol/L 16(L) 22 CO2, LUIS ANTONIO 23.0 - 32.0 mmol/L - - GLUCOSE 74 - 99 mg/dL 95 86 GLUCOSE, ULIS ANTONIO 65 - 100 mg/dL - - BUN 9 - 24 mg/dL 17 18 BUN, LUIS ANTONIO 10 - 25 mg/dL - - CREATININE 0.73 - 1.22 mg/dL 1.24(H) 1.09 CREATININE, LUIS ANTONIO 0.7 - 1.4 mg/dL - - CALCIUM, LUIS ANTONIO 8.5 - 10.5 mg/dL - - CALCIUM, TOTAL 8.5 - 10.2 mg/dL 9.7 9.8 AST 14 - 40 U/L 43(H) 50(H) AST, LUIS ANTONIO 7 - 40 U/L - - ALT 10 - 54 U/L 55(H) 62(H) ALT, LUIS ANTONIO 5 - 50 U/L - - ALKALINE PHOSPHATASE 38 - 113 U/L 69 63 Creatinine: Creatinine Latest Ref Rng & Units 11/23/2021 01/16/2022 CREAT 0.73 - 1.22 mg/dL 1.24(H) 1.09 ESR/CRP: ESR, WSR Latest Ref Rng & Units 10/17/2021 01/16/2022 WSR 0 - 15 mm/hr 2 2 SED RATE, LUIS ANTONIO 0 - 10 mm/hr - - CRP Latest Ref Rng & Units 10/17/2021 01/16/2022 CRP <0.9 mg/dL <0.3 0.3 Uric Acid: Uric Acid Latest Ref Rng & Units 10/17/2021 01/16/2022 URIC ACID 4.0 - 8.1 mg/dL 6.1 5.7 Open Standing (Multiple Instance) Lab Orders None Open Future (Single Instance) Lab Orders Expected Expires Ordered HEPATIC FUNCTION PNL [SQHFP] 09/11/21 06/13/22 06/13/21 Auth. provider: Stevan Bridges MD Assoc. diagnoses: Mixed hyperlipidemia, Fatty liver, Elevated LFTs LIPID PANEL, NONFASTING [SQLIPNF] 09/11/21 06/13/22 06/13/21 Auth. provider: Stevan Bridges MD Assoc. diagnoses: Mixed hyperlipidemia, Fatty liver, Elevated LFTs HGB A1C [VKZIP3H] 06/20/22 08/20/22 12/18/21 Auth. provider: Leticia Prasad PA-C Assoc. diagnoses: Encounter for screening for diabetes mellitus COMP METABOLIC PANEL [SQCMP] 06/20/22 08/20/22 12/18/21 Auth. provider: Leticia Prasad PA-C Assoc. diagnoses: Essential hypertension with goal blood pressure less than 140/90 LIPID PANEL, NONFASTING [SQLIPNF] 06/20/22 08/20/22 12/18/21 Auth. provider: Leticia Prasad PA-C Assoc. diagnoses: Mixed hyperlipidemia, Coronary artery disease due to lipid rich plaque MAGNESIUM BLD [SQMG1] 06/20/22 08/20/22 12/18/21 Auth. provider: Leticia Prasad PA-C Assoc. diagnoses: Current use of proton pump inhibitor CBC + DIFF [SQCBCDIF] 06/20/22 08/20/22 12/18/21 Auth. provider: Leticia Prasad PA-C Assoc. diagnoses: Essential hypertension with goal blood pressure less than 140/90, Mixed hyperlipidemia, Coronary artery disease due to lipid rich plaque URINALYSIS, WITH MICROSCOPIC [SQUAWMIC] 06/20/22 08/20/22 12/18/21 Auth. provider: Leticia Prasad PA-C Assoc. diagnoses: Essential hypertension with goal blood pressure less than 140/90 * Telephone Encounter - Evelia Diaz - 06/12/2022 8:41 AM EST 44 documented in this encounterAkron [facility]10-21-2022 Miscellaneous Notes* Telephone Encounter - Jodee Graham Ma - 03/22/2022 1:49 PM EDT Notified via NextInputhart. Jodee Graham Ma * Telephone Encounter - Usha Crooks MA - 03/21/2022 8:53 AM EDT Left message for patient to contact office. Usha Crooks MA * Telephone Encounter - Stevan Bridges MD - 03/16/2022 12:03 PM EDT Let patient know his atorvastatin is filled by cardiology. The following approved medication requests have been transmitted electronically. Requested Prescriptions Signed Prescriptions Disp Refills pantoprazole DR (PROTONIX) 40 mg tablet 90 tablet 1 Sig: TAKE 1 TABLET DAILY BEFORE BREAKFAST. TAKE ON EMPTY STOMACH, ONE HALF HOUR BEFORE A MEAL Authorizing Provider: STEVAN BRIDGES FLUoxetine (PROZAC) 10 mg capsule 90 capsule 1 Sig: Take 1 capsule by mouth once daily. Authorizing Provider: STEVAN BRIDGES MD * Telephone Encounter - Usha Crooks MA - 03/16/2022 11:17 AM EDT Patient has been identified by name and date of : Yes Requested Prescriptions Pending Prescriptions Disp Refills atorvastatin (LIPITOR) 40 mg tablet 90 tablet Sig: Take 1 tablet by mouth once daily. For cholesterol. pantoprazole DR (PROTONIX) 40 mg tablet 90 tablet 1 Sig: TAKE 1 TABLET DAILY BEFORE BREAKFAST. TAKE ON EMPTY STOMACH, ONE HALF HOUR BEFORE A MEAL FLUoxetine (PROZAC) 10 mg capsule 90 capsule 1 Sig: Take 1 capsule by mouth once daily. RX INSTRUCTIONS: Patient aware RX will be sent to pharmacy. No need to notify patient. Usha Crooks MA [place]: 11/2021 Nov: 06/2022 Last refill: 09/2021 It does not show Lipitor as prescribed by Dr. Bridges (I believe prescribed by cariology) documented in this encounterAkron [facility] Hospital10-19-2022 Miscellaneous Notes* Telephone Encounter - Juli Escalante Ma - 03/20/2022 9:02 AM EDT Last ov 01/16/[address] Nichols Last refill 06/04/21 Component Latest Ref Rng & Units 01/16/2022 WBC 3.70 - 11.00 k/uL 5.31 RBC 4.20 - 6.00 m/uL 4.75 Hemoglobin 13.0 - 17.0 g/dL 15.4 Hematocrit 39.0 - 51.0 % 43.6 MCV 80.0 - 100.0 fL 91.8 MCH 26.0 - 34.0 pg 32.4 MCHC 30.5 - 36.0 g/dL 35.3 RDW-CV 11.5 - 15.0 % 11.8 Platelet Count 150 - 400 k/uL 208 MPV 9.0 - 12.7 fL 9.8 Neut% % 42.6 Abs Neut (ANC) 1.45 - 7.50 k/uL 2.26 Lymph% % 36.9 Abs Lymph 1.00 - 4.00 k/uL 1.96 [place]% % 13.0 Abs [place] <0.87 k/uL 0.69 Eosin% % 6.2 Abs Eosin <0.46 k/uL 0.33 Baso% % 1.1 Abs Baso <0.11 k/uL 0.06 Immature Gran % % 0.2 IMMATURE GRANS (ABS) <0.10 k/uL <0.03 NRBC /100 WBC 0.0 Absolute nRBC <0.01 k/uL <0.01 DTYPE Auto Protein, Total 6.3 - 8.0 g/dL 7.2 Albumin 3.9 - 4.9 g/dL 4.4 Calcium 8.5 - 10.2 mg/dL 9.8 Bilirubin, Total 0.2 - 1.3 mg/dL 0.8 Alkaline Phosphatase 38 - 113 U/L 63 AST 14 - 40 U/L 50 (H) ALT 10 - 54 U/L 62 (H) Glucose 74 - 99 mg/dL 86 BUN 9 - 24 mg/dL 18 Creatinine 0.73 - 1.22 mg/dL 1.09 Sodium 136 - 144 mmol/L 137 Potassium 3.7 - 5.1 mmol/L 4.1 Chloride 97 - 105 mmol/L 104 CO2 22 - 30 mmol/L 22 Anion Gap 9 - 18 mmol/L 11 eGFR >=60 mL/min/1.73m 86 WSR 0 - 15 mm/hr 2 CRP <0.9 mg/dL 0.3 Uric Acid 4.0 - 8.1 mg/dL 5.7 documented in this encounterAkron [facility]08-17-2022 Instructions* Patient Instructions* Viktoria Nichols MD - 01/16/2022 10:50 AM EDT Please complete blood work Message me on mychart if any questions or if you have a flare you can take the prednisone that I prescribed during last visit. Avoid red meat shell fish shrimp excessive alcohol/beer/soda/pop/high fructose corn syrup consumption, foods beneficial in gout include tart monsalve juice, coffee, low fat dairy products & vitaminC documented in this encounterAkron Children'[facility] Hospital08-17-2022 History of Present illness Narrative* Viktoria Nichols MD - 01/16/2022 10:33 AM EDT Images from the original note were not included. Rheumatology History & Physical Patient name: Basim Alexandra Requesting provider: No att. providers found SUBJECTIVE INITIAL RHEUMATOLOGY VISIT 08/24/2021 (with Viktoria Nichols): Mr. Basim Alexandra is a 46 year old male who has a past medical history of polyarticular tophaceous gout, CAD (STEMI) s/p PCI, anxiety, transaminitis, HTN, fatty liver, GERD, Anxiety/depressoin, inguinal hernia, HLD, seasonal allergies who presents for rheumatology evaluation. Previously evaluated by Dr. Salguero - cruz to me. PSHx: He has a past surgical history that includes tooth extraction; past surgical history of (05/15/2016); 2d echo (exep) (05/15/2016); stress test (02/05/2018); rpr 1st ingun hrna age 7 yrs/> reducible (Left, 06/15/2018); and colonoscopy - diagnostic (06/12/2020). Allergies: He is allergic to azithromycin and erythromycin. Current Meds: selenium sulfide, pantoprazole, fluoxetine, atorvastatin, colchicine 0.6mg q2 days, febuxostat 40mg/d, sour monsalve extract, aspirin, enteric coated, metoprolol succinate er, lisinopril,ticagrelor, cetirizine, ibuprofen Family History: family history includes Afib in his father; Alzheimer's Disease in his maternal aunt and maternal grandmother; Coronary Artery Disease in his maternal grandfather, maternal grandmother, and another family member; Depression in his mother; Diabetes in his maternal aunt; Hyperlipidemia in his mother; No Known Problems in his sister; Pancreatic Cancer (age of onset: 79) in his father. gout, nephrolithiasis in his father Social History: He reports that he has never smoked. He has never used smokeless tobacco. He reports current alcohol use. He reports that he does not use drugs. Labs: CBC Latest Ref Rng & Units 10/17/2021 05/29/2021 02/19/2021 08/14/2020 WBC 3.70 - 11.00 k/uL 4.59 5.95 5.32 5.96 HEMOGLOBIN 13.0 - 17.0 g/dL 15.6 16.1 14.8 14.9 HEMOGLOBIN, LUIS ANTONIO 13.0 - 17.0 g/dL - - - - HEMATOCRIT 39.0 - 51.0 % 45.2 46.7 42.1 41.5 PLATELETS 150 - 400 k/uL 199 225 189 180 ABS NEUT (ANC) 1.45 - 7.50 k/uL 2.41 2.86 2.61 3.10 ABS NEUT, LUIS ANTONIO 1.45 - 7.50 k/uL - - - - ABS LYMP, LUIS ANTONIO 1.00 - 4.00 k/uL - - - - ABS LYMPH 1.00 - 4.00 k/uL 1.38 2.02 1.75 1.77 CMP Latest Ref Rng & Units 11/23/2021 10/17/2021 05/29/2021 02/19/2021 SODIUM 136 - 144 mmol/L 134(L) 140 138 142 SODIUM, LUIS ANTONIO 135 - 146 mmol/L - - - - SODIUM, LUIS ANTONIO 135 - 146 mmol/L - - - - POTASSIUM 3.7 - 5.1 mmol/L 4.2 4.3 4.1 4.5 POTASSIUM, LUIS ANTONIO 3.5 - 5.0 mmol/L - - - - CHLORIDE 97 - 105 mmol/L 100 104 103 107(H) CHLORIDE, LUIS ANTONIO 98 - 110 mmol/L - - - - CO2 22 - 30 mmol/L 16(L) 23 19(L) 22 CO2, LUIS ANTONIO 23.0 - 32.0 mmol/L - - - - GLUCOSE 74 - 99 mg/dL 95 101(H) 100(H) 94 GLUCOSE, LUIS ANTONIO 65 - 100 mg/dL - - - - BUN 9 - 24 mg/dL 17 14 16 17 BUN, LUIS ANTONIO 10 - 25 mg/dL - - - - CREATININE 0.73 - 1.22 mg/dL 1.24(H) 1.16 1.11 1.18 CREATININE, LUIS ANTONIO 0.7 - 1.4 mg/dL - - - - CALCIUM, LUIS ANTONIO 8.5 - 10.5 mg/dL - - - - CALCIUM, TOTAL 8.5 - 10.2 mg/dL 9.7 9.8 10.3(H) 10.1 AST 14 - 40 U/L 43(H) 43(H) 56(H) 39 AST, LUIS ANTONIO 7 - 40 U/L - - - - ALT 10 - 54 U/L 55(H) 58(H) 67(H) 62(H) ALT, LUIS ANTONIO 5 - 50 U/L - - - - ALKALINE PHOSPHATASE 38 - 113 U/L 69 63 65 61 Uric Acid Latest Ref Rng & Units 10/17/2021 02/19/2021 08/14/2020 12/17/2019 URIC ACID 4.0 - 8.1 mg/dL 6.1 5.1 5.2 5.9 ESR, WSR Latest Ref Rng & Units 10/17/2021 11/18/2018 05/09/2006 WSR 0 - 15 mm/hr 2 28(H) - SED RATE, LUIS ANTONIO 0 - 10 mm/hr - - 1 CRP Latest Ref Rng & Units 10/17/2021 11/18/2018 CRP <0.9 mg/dL <0.3 0.8 RF and CCP Latest Ref Rng & Units 10/17/2021 11/18/2018 RHEUMATOID FACTOR <16 IU/mL 27(H) <10 CCP ANTIBODY IGG QUALITATIVE Negative Negative - CCP ANTIBODY, IGG <20 Units <15 <15 Hepatitis Screen Latest Ref Rng & Units 11/23/2021 10/17/2021 HEPAIGM Negative Negative - HEPBCIGM Negative Negative - HEPBCOTOL Negative - Negative HEPSABQ Negative - Negative HEPCABEIA Negative - Negative HBSAG Negative Negative Negative TB Screen 10/17/2021 TBGINT Infection with M. tuberculosis complex is unlikely. If latent tuberculosis infection is highly suspected, a negative result does not rule out the infection. Specimens from immunocompromised patients and those <5 years of age may show false negative results. In case of a contact investigation, please repeat 8-12 weeks after a known exposure. TBGRES Negative Antibodies Latest Ref Rng & Units 11/18/2018 LESLIE BY EIA OD Ratio 0.2 LESLIE BY EIA, QUAL Negative Negative Urinalysis Latest Ref Rng & Units 05/29/2021 02/19/2021 12/17/2019 08/11/2019 PROTEIN, URINE Negative Negative Negative Negative Negative RBC, URINE 0 - 3 /HPF 0-3 0-3 0-3 0-3 RBC, URINE, LUIS ANTONIO /hpf - - - - TPMT amd G6PD Latest Ref Rng & Units 10/17/2021 G-6-PD QUANTITATIVE 9.8 - 15.5 U/g Hb 11.8 Labs: 05/22: sCr WNL; ALT 67, AST 56, A1c 5.2%; CBC WNL 02/20: uric acid 5.1 11/18: (-) LESLIE, RF, CCP; SPEP (-) M protein 11/18 R olecranon Bursa Aspiration - TNC 3491 Positive for crystals with polarizing properties of uric acid. Abnormal Uric acid trend: 8.1 (2018) --> 10.4 (11/18) --> 6.1 (12/18) --> 5.7 (08/19) --> 5.9 (12/19) --> 5.2 (08/20) --> 5.1 (02/20) Imaging: XR R FOOT 2019: MILD HALLUX VALGUS AND PLANTAR CALCANEAL SPUR. XR L FOOT 2019: No acute fracture or dislocation. XR HANDS 2019: No acute abnormality RHEUMATOLOGY EVALUATION 08/24/2021 Patient seen and examined - [place] - last saw Dr. Salguero a few months ago - h/o crystal proven polyarticular tophaceous gout. Notes his first gout flare was about ~3-4 years ago - has experienced recurrent flares in olecranonbursa (gouty olecranon bursitis), knees, ankles and dorsum of feet - no h/o 1st MTP involvement/podagra. Has never been on allopurinol - currently on febuxostat 40mg/d and colchicine 0.6mg q2 days- Which was prescribed by Dr. Salguero. History of mild transaminitis. Tophi: present - over elbows - notes these are reducing in size Last gouty flare - 2 years ago FHx of gout and nephrolithiasis in his father. He does not have a personal h/o nephrolithiasis. He is not on any diuretics. Hx CAD (STEMI) s/p PCI - follows with cardiology regularly. Last labs noted normal renal fx. Diet - states he has red meat here and there but admits to consuming 3-4 beers a night. Answers for HPI/ROS submitted by the patient on 08/24/2021 Fever : No Recent Unintentional Weight Change: No Eye Pain: No Eye Redness: No Vision Disturbance: No Eye Dryness: No Nose Bleeds: No Sores in your Mouth: No Trouble Swallowing: No Dry Mouth: No Chest Pain: No Leg Swelling: No A Cough: No Shortness of Breath: No Pain with Breathing: No Heartburn: No Abdominal Pain: No Diarrhea: No Black Tarry Stools: No Blood in Urine: No Pain or Burning with Urination: No Joint Pain or Stiffness: Yes Muscle Weakness: No Muscle Aches: No Joint Swelling: No Morning Stiffness in Joints: No A Rash: No Skin Color Changes: No Hair Loss: No Nail Changes: No Headaches: No Numbness: No Memory Loss: No Swollen Glands: No RHEUMATOLOGY FOLLOW UP VISIT 01/16/2022: Patient seen and examined at [facility] rheumatology clinic for a follow up visit. Diagnostics since last visit: Recent Diagnostics: 6/22: ALT 55 AST 43 10/21: sCr WNL; ALT 58; AST 43; (-) Hepatitis; RF 27 (-)CCP; uric acid 6.1; CBC WNL; ESR 2; G6PD WNL XR ELBOWS/HANDS/KNEES/FEET: Bilateral olecranon bursitis, slightly greater on the LEFT. Nonspecificmild LEFT prepatellar/infrapatellar soft tissue swelling. Mild degenerative change LEFT navicular cuneiform joint. Otherwise, no significant bone or articular abnormality. Patient seen and examined this morning. Overall feels well - currently in intercritical gout - Since last visit no recent gout flares overall feeling well - currently on febuxostat 40mg/d, consuming a lo tof tart monsalve juice, and remains on ppx with colchicine 0.6mg q2days. OBJECTIVE 01/16/22 1019 BP: 133/90 Pulse: 63 Weight: 103.7 kg (228 lb 11.2 oz) Height: 185.4 cm (6' 1") General: No acute distress. Eye: Pupils are equal, round and reactive to light, Extraocular movements are intact, Normal conjunctiva. HENT: Oral mucosa is moist, no oral ulcerations, no areas of alopecia appreciated Neck: Supple, Non-tender. No lymphadenopathy Respiratory: Lungs are clear to auscultation, Respirations are non-labored, Breath sounds are equal. Cardiovascular: Normal rate, Regular rhythm. Gastrointestinal: soft, non-tender, non-distended. Musculoskeletal: tophi noted over b/l elbows/olecranon bursa; otherwise no synovitis Integumentary: Warm, Dry. No rash Neurologic: Alert, Oriented. Psychiatric: Cooperative. IMPRESSION & RECOMMENDATIONS Mr. Basim Alexandra is a 46 year old male who has a past medical history of polyarticular tophaceous gout, CAD (STEMI) s/p PCI, anxiety, transaminitis, HTN, fatty liver, GERD, Anxiety/depressoin, inguinal hernia, HLD, seasonal allergies who presents for rheumatology evaluation. Previously evaluated by Dr. Salguero - cruz to me. [facility] Diagnostics: 11/21: ALT 55 AST 43 10/21: sCr WNL; ALT 58; AST 43; (-) Hepatitis; RF 27 (-)CCP; uric acid 6.1; CBC WNL; ESR 2; G6PD WNL 05/22: sCr WNL; ALT 67, AST 56, A1c 5.2%; CBC WNL 02/20: uric acid 5.1 11/18: (-) LESLIE, RF, CCP; SPEP (-) M protein 11/18 R olecranon Bursa Aspiration - TNC 3491 Positive for crystals with polarizing properties of uric acid. Abnormal Polyarticular Tophaceous Crystal Proven Gout -FHx gout and nephrolithiasis in his father -Personal h/o tophaceous gout affecting olecranon bursa, knees, ankles, dorsum of feet -last flare > 2 years ago -R olecranon bursa aspiration +MSU crystals in 2019 -currently on febuxostat 40mg/d & colchicine 0.6mg q2 days -has never been on allopurinol -h/o transaminitis will monitor closely - if rising LFT >2-3X ULN would switch ULT to allopurinol d/t concern for DILI (case d/w [facility] rheumatology pharmacist) -counseled patient extensively on low purine diet and minimizing beer intake -h/o CAD s/p PCI - counseled extensively regarding relationship of gout with metabolic syndrome, cardiovascular disease -Will follow up labs (recent G6PD WNL in the event pegloticase is considered in future) -Rx: medrol dose mark - instructed patient to take if and only if he has sx c/w gouty flare -in the setting of tophaceous gout, goal sUA < 5 I spent a total of 40 minutes on the date of the service which included preparing to see the patient, [id number] patient care, completing clinical documentation, obtaining and/or reviewing separately obtained history, performing a medically appropriate examination, counseling and educating the pat ient/family/caregiver, ordering medications, tests, or procedures, communicating results to the patient/family/caregiver and care coordination (not separately reported). Viktoria Nichols MD Rheumatology Staff [facility] Miscellaneous Notes* Telephone Encounter - Stevan Bridges MD - 10/04/2021 5:00 PM EDT The following approved medication requests have been transmitted electronically. Signed Prescriptions Disp Refills pantoprazole DR (PROTONIX) 40 mg tablet 90 tablet 1 Sig: TAKE 1 TABLET DAILY BEFORE BREAKFAST. TAKE ON EMPTY STOMACH, ONE HALF HOUR BEFORE A MEAL JESSICA: No Authorizing Provider: STEVAN BRIDGES FLUoxetine (PROZAC) 10 mg capsule 90 capsule 1 Sig: Take 1 capsule by mouth once daily. JESSICA: No Authorizing Provider: STEVAN BRIDGES MD * Telephone Encounter - Chanel Shahid Ma - 10/04/2021 4:49 PM EDT Patient last visit with PCP 06/13/21 Follow up appointment scheduled 12/12/21 Chanel Shahid Ma [facility] History of Past illness Narrative* Problem Noted Date Diagnosed Date Resolved Date Inguinal hernia of left side without obstruction or gangrene 09/02/2017 08/01/2023 Overview: Very mild on exam 08/2017 possible early start of. [place] 05/16/2010 09/12/2010 Cutaneous skin tags 05/16/2010 09/13/19 11 Elevated blood pressure read ing without diagnosis of hypertension 09/21/2008 04/18/2010 documented as of this encounter (statuses as of 08/05/2023) [facility] of Past illness Narrative* Problem Noted Date Diagnosed Date Resolved Date Inguinal hernia of left side without obstruction or gangrene 09/02/2017 08/01/2023 Overview: Very mild on exam 08/2017 possible early start of. [place] 05/16/2010 09/12/2010 Cutaneous skin tags 05/16/2010 09/13/19 11 Elevated blood pressure read ing without diagnosis of hypertension 09/21/2008 04/18/2010 documented as of this encounter (statuses as of 08/20/2023) [facility] Evaluation note* Diagnosis Onset Date Resolution Status Atherosclerotic heart diseas [place] of [place] coronary artery without angina pectoris chronic Essential (primary) hypertension chronic Hyperlipidemia chronic History of coronary artery stent placement May 152015 resolved [facility] Work Phone: [phone] Evaluation note* Diagnosis Onset Date Resolution Status Admit Date History of coronary artery stent placement May 15, 2016 acute February 282024 1:23pm Essential (primary) hypertension chronic February 28, 2025 1:23pm Hyperlipidemia chronic February 28, 2025 1:23pm [facility] Work Phone: [phone] History of Past illness Narrative* Problem Noted Date Resolved Date [place] 05/16/2010 09/12/2010 Cutaneous skin tags 05/16/2010 09/12/2010 Elevated blood pressure read ing without diagnosis of hypertension 09/21/2008 04/18/2010 documented as of this encounter (statuses as of 10/04/2021) [facility] of Past illness Narrative* Problem Noted Date Resolved Date [place] 05/16/2010 09/12/2010 Cutaneous skin tags 05/16/2010 09/12/2010 Elevated blood pressure read ing without diagnosis of hypertension 09/21/2008 04/18/2010 documented as of this encounter (statuses as of 11/20/2021) [facility] of Past illness Narrative* Problem Noted Date Resolved Date [place] 05/16/2010 09/12/2010 Cutaneous skin tags 05/16/2010 09/12/2010 Elevated blood pressure read ing without diagnosis of hypertension 09/21/2008 04/18/2010 documented as of this encounter (statuses as of 11/26/2021) [facility] of Past illness Narrative* Problem Noted Date Resolved Date [place] 05/16/2010 09/12/2010 Cutaneous skin tags 05/16/2010 09/12/2010 Elevated blood pressure read ing without diagnosis of hypertension 09/21/2008 04/18/2010 documented as of this encounter (statuses as of 01/23/2022) [facility] of [facility] illness Narrative* Problem Noted Date Resolved Date [place] 05/16/2010 09/12/2010 Cutaneous skin tags 05/16/2010 09/12/2010 Elevated blood pressure read ing without diagnosis of hypertension 09/21/2008 04/18/2010 documented as of this encounter (statuses as of 03/20/2022) [facility] Narrative* Problem Noted Date Resolved Date [place] 05/16/2010 09/12/2010 Cutaneous skin tags 05/16/2010 09/12/2010 Elevated blood pressure read ing without diagnosis of hypertension 09/21/2008 04/18/2010 documented as of this encounter (statuses as of 03/22/2022) [facility] Narrative* Problem Noted Date Resolved Date [place]one 05/16/2010 09/12/2010 Cutaneous skin tags 05/16/2010 09/12/2010 Elevated blood pressure read ing without diagnosis of hypertension 09/21/2008 04/18/2010 documented as of this encounter (statuses as of 04/01/2022) [facility] Narrative* Problem Noted Date Resolved Date [place]one 05/16/2010 09/12/2010 Cutaneous skin tags 05/16/2010 09/12/2010 Elevated blood pressure read ing without diagnosis of hypertension 09/21/2008 04/18/2010 documented as of this encounter (statuses as of 05/03/2022) [facility] Narrative* Problem Noted Date Resolved Date Com[place]one 05/16/2010 09/12/2010 Cutaneous skin tags 05/16/2010 09/12/2010 Elevated blood pressure read ing without diagnosis of hypertension 09/21/2008 04/18/2010 documented as of this encounter (statuses as of 06/12/2022) [facility] Narrative* Problem Noted Date Resolved Date Com[place]one 05/16/2010 09/12/2010 Cutaneous skin tags 05/16/2010 09/12/2010 Elevated blood pressure read ing without diagnosis of hypertension 09/21/2008 04/18/2010 documented as of this encounter (statuses as of 07/12/2022) [facility] Narrative* Problem Noted Date Resolved Date Comedone 05/16/2010 09/12/2010 Cutaneous skin tags 05/16/2010 09/12/2010 Elevated blood pressure read ing without diagnosis of hypertension 09/21/2008 04/18/2010 documented as of this encounter (statuses as of 07/14/2022) [address]15-2010 History of Past illness Narrative* Problem Noted Date Resolved Date Comedone 05/16/2010 09/12/2010 Cutaneous skin tags 05/16/2010 09/12/2010 Elevated blood pressure read ing without diagnosis of hypertension 09/21/2008 04/18/2010 documented as of this encounter (statuses as of 07/30/2022) [facility] Narrative* Problem Noted Date Resolved Date Comedone 05/16/2010 09/12/2010 Cutaneous skin tags 05/16/2010 09/12/2010 Elevated blood pressure read ing without diagnosis of hypertension 09/21/2008 04/18/2010 documented as of this encounter (statuses as of 08/20/2022) [facility] Narrative* Problem Noted Date Resolved Date Com[place]one 05/16/2010 09/12/2010 Cutaneous skin tags 05/16/2010 09/12/2010 Elevated blood pressure read ing without diagnosis of hypertension 09/21/2008 04/18/2010 documented as of this encounter (statuses as of 08/22/2022) [facility] Narrative* Problem Noted Date Resolved Date Comedone 05/16/2010 09/12/2010 Cutaneous skin tags 05/16/2010 09/12/2010 Elevated blood pressure read ing without diagnosis of hypertension 09/21/2008 04/18/2010 documented as of this encounter (statuses as of 09/27/2022) [facility] Narrative* Problem Noted Date Resolved Date [place]one 05/16/2010 09/12/2010 Cutaneous skin tags 05/16/2010 09/12/2010 Elevated blood pressure read ing without diagnosis of hypertension 09/21/2008 04/18/2010 documented as of this encounter (statuses as of 10/30/2022) [facility] Narrative* Problem Noted Date Diagnosed Date Resolved Date Comedone 05/16/2010 09/12/2010 Cutaneous skin tags 05/16/2010 09/13/19 11 Elevated blood pressure read ing without diagnosis of hypertension 09/21/2008 04/18/2010 documented as of this encounter (statuses as of 01/11/2023) [address]15-2010 History of Past illness Narrative* Problem Noted Date Diagnosed Date Resolved Date Comedone 05/16/2010 09/12/2010 Cutaneous skin tags 05/16/2010 09/13/19 11 Elevated blood pressure read ing without diagnosis of hypertension 09/21/2008 04/18/2010 documented as of this encounter (statuses as of 01/17/2023) [address]15-2010 History of Past illness Narrative* Problem Noted Date Diagnosed Date Resolved Date Comedone 05/16/2010 09/12/2010 Cutaneous skin tags 05/16/2010 09/13/19 11 Elevated blood pressure read ing without diagnosis of hypertension 09/21/2008 04/18/2010 documented as of this encounter (statuses as of 01/20/2023) [facility] N[facility]ative* Problem Noted Date Diagnosed Date Resolved Date Comedone 05/16/2010 09/12/2010 Cutaneous skin tags 05/16/2010 09/13/19 11 Elevated blood pressure read ing without diagnosis of hypertension 09/21/2008 04/18/2010 documented as of this encounter (statuses as of 02/07/2023) [facility] Narrative* Problem Noted Date Diagnosed Date Resolved Date Com[place]one 05/16/2010 09/12/2010 Cutaneous skin tags 05/16/2010 09/13/19 11 Elevated blood pressure read ing without diagnosis of hypertension 09/21/2008 04/18/2010 documented as of this encounter (statuses as of 03/14/2023) [facility] Narrative* Problem Noted Date Diagnosed Date Resolved Date Comedone 05/16/2010 09/12/2010 Cutaneous skin tags 05/16/2010 09/13/19 11 Elevated blood pressure read ing without diagnosis of hypertension 09/21/2008 04/18/2010 documented as of this encounter (statuses as of 03/31/2023) [facility] Narrative* Problem Noted Date Diagnosed Date Resolved Date Comedone 05/16/2010 09/12/2010 Cutaneous skin tags 05/16/2010 09/13/19 11 Elevated blood pressure read ing without diagnosis of hypertension 09/21/2008 04/18/2010 documented as of this encounter (statuses as of 04/07/2023) [facility] Narrative* Problem Noted Date Diagnosed Date Resolved Date Comedone 05/16/2010 09/12/2010 Cutaneous skin tags 05/16/2010 09/13/19 11 Elevated blood pressure read ing without diagnosis of hypertension 09/21/2008 04/18/2010 documented as of this encounter (statuses as of 04/09/2023) [facility] Narrative* Problem Noted Date Diagnosed Date Resolved Date Com[place]one 05/16/2010 09/12/2010 Cutaneous skin tags 05/16/2010 09/13/19 11 Elevated blood pressure read ing without diagnosis of hypertension 09/21/2008 04/18/2010 documented as of this encounter (statuses as of 05/07/2023) [facility] Narrative* Problem Noted Date Diagnosed [facility]2010 Cutaneous skin tags 05/16/2010 09/13/19 11 Elevated blood pressure read ing without diagnosis of hypertension 09/21/2008 04/18/2010 documented as of this encounter (statuses as of 05/12/2023) [facility] Diagnosis Gastroesophageal reflux disease without esophagitis Esophageal reflux Anxiety Anxiety state, unspecified [facility] Chronic gout of multiple sites, unspecified cause [facility] Diagnosis Chronic gout of multiple sites, unspecified cause [facility] Diagnosis Chronic gout of multiple sites, unspecified cause- Primary 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 Polyarthralgia Pain in joint, multiple sites On colchicine therapy Olecranon bursitis of right elbow Olecranon bursitis Arthralgia, unspecified joint Malaise and fatigue Other malaise and fatigue [facility] Diagnosis Chronic gout of multiple sites, unspecified cause [facility] Diagnosis Gastroesophageal reflux disease without esophagitis Esophageal reflux Anxiety Anxiety state, unspecified [facility] Diagnosis Chronic gout of multiple sites, unspecified cause [facility] Diagnosis Essential hypertension with goal blood pressure less than 140/90- Primary Gastroesophageal reflux disease without esophagitis Esophageal reflux Mixed hyperlipidemia Over weight Overweight Encounter for screening for diabetes mellitus Screening for diabetes mellitus [facility] Diagnosis Chronic gout of multiple sites, unspecified cause- Primary Polyarthralgia Pain in joint, multiple sites On colchicine therapy [facility] Diagnosis Chronic gout of multiple sites, unspecified cause [facility] Diagnosis Anxiety Anxiety state, unspecified [facility] Diagnosis Chronic gout of multiple sites, unspecified cause [facility] Diagnosis Gastroesophageal reflux disease without esophagitis Esophageal reflux [facility] Diagnosis Snoring- Primary Other dyspnea and respiratory abnormality Essential hypertension with goal blood pressure less than 140/90 Medication management Encounter for long-term (current) use of other medications [facility] Diagnosis Chronic gout of multiple sites, unspecified cause [facility] Diagnosis JEFF (obstructive sleep apnea)- Primary Obstructive sleep apnea (adult) (pediatric) [facility]* Diagnosis Anxiety Anxiety state, unspecified [facility]* Diagnosis Chronic gout of multiple sites, unspecified cause [facility]* Diagnosis Well adult exam- Primary Routine general medical examination at a health care facility Essential hypertension with goal blood pressure less than 140/90 Mixed hyperlipidemia Coronary artery disease due to lipid rich plaque Gastroesophageal reflux disease without esophagitis Esophageal reflux Anxiety Anxiety state, unspecified Chronic gout of multiple sites, unspecified cause Fatty liver Other chronic nonalcoholic liver disease Elevated LFTs Other abnormal blood chemistry Encounter for screening for diabetes mellitus Screening for diabetes mellitus Medication management Encounter for long-term (current) use of other medications [facility] Diagnosis Chronic gout of multiple sites, unspecified cause [facility] Diagnosis Gastroesophageal reflux disease without esophagitis Esophageal reflux [facility] Diagnosis Chronic gout of multiple sites, unspecified cause [facility]* Diagnosis Pre-op evaluation- Primary Preoperative examination, unspecified Diverticulitis Diverticulitis of colon (without mention of hemorrhage) Essential hypertension with goal blood pressure less than 140/[address] elevation myocardial infarction (STEMI) Old myocardial infarction Coronary artery disease due to lipid rich plaque Gastroesophageal reflux disease without esophagitis Esophageal reflux Chronic gout of multiple sites, unspecified cause 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 Chronic gout of multiple sites, unspecified cause Polyarthralgia Pain in joint, multiple sites On colchicine therapy Olecranon bursitis of right elbow Olecranon bursitis Metatarsalgia of right foot Enthesopathy of ankle and tarsus, unspecified 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) Malaise and fatigue Other malaise and fatigue Arthralgia, unspecified joint documented in this encounter [facility] for referral (narrative)* Diagnostic Procedure Only (Routine) - Closed Specialty Diagnoses / Procedures Referred By Lux velázquez Referred To Contact XR IMAGING Diagnoses G6PD deficiency Chronic gout of multiple sites, unspecified cause Polyarthralgia On colchicine therapy Olecranon bursitis of right elbow Metatarsalgia of right foot Chronic tophaceous gout Malaise and fatigue Arthralgia, unspecified joint Procedures XR ELBOW GENERAL 2V AP/LAT LEFT RADEX ELBOW 2 VIEWS Viktoria Nichols MD [address] [place] [id number] X[facility] Imaging [place] [id number] Referral ID Status Reason Start Date Expiration Date V isits Requested Visits Authorized [id number] Closed Auto-Generate d Referral 08/24/2021 09/23/2022 1 1 * Diagnostic Procedure Only (Routine) - Closed Specialty Diagnoses / Procedures Referred By Contac melania Referred To Contact XR IMAGING Diagnoses G6PD deficiency Chronic gout of multiple sites, unspecified cause Polyarthralgia On colchicine therapy Olecranon bursitis of right elbow Metatarsalgia of right foot Chronic tophaceous gout Malaise and fatigue Arthralgia, unspecified joint Procedures XR ELBOW GENERAL 2V AP/LAT RIGHT RADEX ELBOW 2 VIEWS Viktoria Nichols MD [address] [place] [address] [place] [address] Referral ID Status Reason Start Date Expiration Date V isits Requested Visits Authorized [id number] Closed Auto-Generate d Referral 08/24/2021 09/23/2022 1 1 * Diagnostic Procedure Only (Routine) - Closed Specialty Diagnoses / Procedures Referred By Contac t Referred To Contact XR IMAGING Diagnoses G6PD deficiency Chronic gout of multiple sites, unspecified cause Polyarthralgia On colchicine therapy Olecranon bursitis of right elbow Metatarsalgia of right foot Chronic tophaceous gout Malaise and fatigue Arthralgia, unspecified joint Procedures XR WRIST GENERAL 3V PA/LAT/OBL BILATERAL RADEX WRIST COMPLETE MINIMUM 3 VIEWS Viktoria Nichols MD [address] [place] [address] Xr Imaging [id number] Referral ID Status Reason Start Date Expiration Date V isits Requested Visits Authorized [id number] Closed Auto-Generate d Referral 08/24/2021 09/23/2022 1 1 * Diagnostic Procedure Only (Routine) - Closed Specialty Diagnoses / Procedures [facility] Referred To Contact XR IMAGING Diagnoses G6PD deficiency Chronic gout of multiple sites, unspecified cause Polyarthralgia On colchicine therapy Olecranon bursitis of right elbow Metatarsalgia of right foot Chronic tophaceous gout Malaise and fatigue Arthralgia, unspecified joint Procedures XR KNEE GENERAL 4V AP BOTH/PA BOTH/LAT/MERC BILATERAL RADIOLOGIC EXAM KNEE COMPLETE 4/MORE VIEWS Viktoria Nichols MD [address] [place] [address] Xr Imaging [id number] Referral ID Status Reason Start Date Expiration Date V isits Requested Visits Authorized [id number] Closed Auto-Generate d Referral 08/24/2021 09/23/2022 1 1 * Diagnostic Procedure Only (Routine) - Closed Specialty Diagnoses / Procedures Referred By Contac t Referred To Contact XR IMAGING Diagnoses G6PD deficiency Chronic gout of multiple sites, unspecified cause Polyarthralgia On colchicine therapy Olecranon bursitis of right elbow Metatarsalgia of right foot Chronic tophaceous gout Malaise and fatigue Arthralgia, unspecified joint Procedures XR ANKLE GENERAL 3V AP/LAT/OBL BILATERAL RADEX ANKLE COMPLETE MINIMUM 3 VIEWS Viktoria Nichols MD [address] [place] [address] Xr Imaging [place] [facility] Referral ID Status Reason Start Date Expiration Date V isits Requested Visits Authorized [id number] Closed Auto-Generate d Referral 08/24/2021 09/23/2022 1 1 * Diagnostic Procedure Only (Routine) - Closed Specialty Diagnoses / Procedures Referred By Lux velázquez Referred To Contact XR IMAGING Diagnoses G6PD deficiency Chronic gout of multiple sites, unspecified cause Polyarthralgia On colchicine therapy Olecranon bursitis of right elbow Metatarsalgia of right foot Chronic tophaceous gout Malaise and fatigue Arthralgia, unspecified joint Procedures XR FOOT GENERAL 3V AP/LAT/OBL BILATERAL RADEX FOOT COMPLETE MINIMUM 3 VIEWS Viktoria Nichols MD [address] [place] [address] Xr Imaging [place] [id number] Referral ID Status Reason Start Date Expiration Date V isits Requested Visits Authorized [id number] Closed Auto-Generate d Referral 08/24/2021 09/23/2022 1 1 * Diagnostic Procedure Only (Routine) - Closed Specialty Diagnoses / Procedures Referred By Lux velázquez Referred To Contact XR IMAGING Diagnoses G6PD deficiency Chronic gout of multiple sites, unspecified cause Polyarthralgia On colchicine therapy Olecranon bursitis of right elbow Metatarsalgia of right foot Chronic tophaceous gout Malaise and fatigue Arthralgia, unspecified joint Procedures XR HAND GENERAL 3V PA/LAT/OBL BILATERAL RADEX HAND MINIMUM 3 VIEWS Viktoria Nichols MD [address] [place] [id number] Xr Imaging [facility] Referral ID Status Reason Start Date Expiration Date V isits Requested Visits Authorized [id number] Closed Auto-Generate d Referral 08/24/2021 09/23/2022 1 1 [facility]No reason for referral information availableFranciscan Health [facility] Services Work Phone: Reason for visit Narrative* Diagnostic Procedure Only (Routine) - Closed Specialty Diagnoses / Procedures Referred By Contac t Referred To Contact XR IMAGING Diagnoses G6PD deficiency Chronic gout of multiple sites, unspecified cause Polyarthralgia On colchicine therapy Olecranon bursitis of right elbow Metatarsalgia of right foot Chronic tophaceous gout Malaise and fatigue Arthralgia, unspecified joint Procedures XR ELBOW GENERAL 2V AP/LAT LEFT RADEX ELBOW 2 VIEWS Viktoria Nichols MD [address] [place] [phone] Xr Imaging [id number] Referral ID Status Reason Start Date Expiration Date V isits Requested Visits Authorized [id number] Closed Auto-Generate d Referral 08/24/2021 09/23/2022 1 1 [facility] Summary Purpose Family History No Family History Records Found Relationship Condition Age at Onset Recorded Date/T sherry father Atrial fibrillation Unknown mother Hyperlipidemia Unknown Advance Directives No Advanced Directives Records FoundDocuments on File Type Date Recorded Patient Loss Control Representative Expl anation Advance Directive(s) 06/12/2020 8:33 AM Advance Directive(s) 06/09/2020 11:14 AM Advance Directive Response Recorded Date/ Time Advance Directives No June 10, 2016 3:24pm Living Will No January 09 0 7:03am Power of Manager Pmo No January 09 020 7:03am Advance Directive Response Recorded Date/ Time Advance Directives No June 10, 2016 3:24pm Chief Complaint and Reason for Visit Chief Complaint 1 Y FU ASHD ASHD Reason for Visit Atherosclerotic hear t disease of [place] coronary artery without angina pectoris Essential (primary) hypertension Hyperlipidemia History of coronary artery stent placement Chief Complaint Admit Date DOT PHYSICAL/NEEDS STRESS January 1:23pm Reason for Visit Admit Date History of coronary artery stent placeme nt February 28, 2025 1:23pm Essential (primary) hypertension Septemb 2024 1:23pm Hyperlipidemia February 28, 2025 1:23pm Additional Source Comments (unrecognized sect ion and content) No Status Records FoundNo Status Records FoundNo Status Records Found INFORMATION SOURCE (unrecogn ized section and content) DATE CREATED AUTHOR 06/12/2020 [facility] DATE CREATED AUTHOR AUTHOR'S ORGANIZ ATION 03/06/2025 [facility] DATE CREATED AUTHOR AUTHOR'S ORGANIZ ATION 03/12/2025 [facility] Source Comments (unrecognize d section and content) In the event this informatio n is protected by the Federal Confidentiality of Alcohol and Drug Abuse Patient Records regulations: The Federal rules restrict any use of the information to criminally investigate or prosecute any alcohol or drug abuse patient.[facility] the event this information is protected by the Federal Confidentiality of Alcohol and Drug Abuse Patient Records regulations: The Federal rules restrict any use of the information to criminally investigate or prosecute any alcohol or drug abuse patient.[facility] Hospital[facility] the event this information is protected by the Federal Confidentiality of Alcohol and Drug Abuse Patient Records regulations: The Federal rules restrict any use of the information to criminally investigate or prosecute any alcohol or drug abuse patient.[facility] Hospital[facility] the event this information is protected by the Federal Confidentiality of Alcohol and Drug Abuse Patient Records regulations: The Federal rules restrict any use of the information to criminally investigate or prosecute any alcohol or drug abuse patient.[facility] HospitalIn the event this information is protected by the Federal Confidentiality of Alcohol and Drug Abuse Patient Records regulations: The Federal rules restrict any use of the information to criminally investigate or prosecute any alcohol or drug abuse patient.[facility] HospitalIn the event this information is protected by the Federal Confidentiality of Alcohol and Drug Abuse Patient Records regulations: The Federal rules restrict any use of the information to criminally investigate or prosecute any alcohol or drug abuse patient.[facility] HospitalIn the event this information is protected by the Federal Confidentiality of Alcohol and Drug Abuse Patient Records regulations: The Federal rules restrict any use of the information to criminally investigate or prosecute any alcohol or drug abuse patient.[facility] HospitalIn the event this information is protected by the Federal Confidentiality of Alcohol and Drug Abuse Patient Records regulations: The Federal rules restrict any use of the information to criminally investigate or prosecute any alcohol or drug abuse patient.[facility] HospitalIn the event this information is protected by the Federal Confidentiality of Alcohol and Drug Abuse Patient Records regulations: The Federal rules restrict any use of the information to criminally investigate or prosecute any alcohol or drug abuse patient.[facility] HospitalIn the event this information is protected by the Federal Confidentiality of Alcohol and Drug Abuse Patient Records regulations: The Federal rules restrict any use of the information to criminally investigate or prosecute any alcohol or drug abuse patient.[facility] HospitalIn the event this information is protected by the Federal Confidentiality of Alcohol and Drug Abuse Patient Records regulations: The Federal rules restrict any use of the information to criminally investigate or prosecute any alcohol or drug abuse patient.[facility] HospitalIn the event this information is protected by the Federal Confidentiality of Alcohol and Drug Abuse Patient Records regulations: The Federal rules restrict any use of the information to criminally investigate or prosecute any alcohol or drug abuse patient.[facility] HospitalIn the event this information is protected by the Federal Confidentiality of Alcohol and Drug Abuse Patient Records regulations: The Federal rules restrict any use of the information to criminally investigate or prosecute any alcohol or drug abuse patient.[facility] HospitalIn the event this information is protected by the Federal Confidentiality of Alcohol and Drug Abuse Patient Records regulations: The Federal rules restrict any use of the information to criminally investigate or prosecute any alcohol or drug abuse patient.[facility] HospitalIn the event this information is protected by the Federal Confidentiality of Alcohol and Drug Abuse Patient Records regulations: The Federal rules restrict any use of the information to criminally investigate or prosecute any alcohol or drug abuse patient.[facility] HospitalIn the event this information is protected by the Federal Confidentiality of Alcohol and Drug Abuse Patient Records regulations: The Federal rules restrict any use of the information to criminally investigate or prosecute any alcohol or drug abuse patient.[facility] HospitalIn the event this information is protected by the Federal Confidentiality of Alcohol and Drug Abuse Patient Records regulations: The Federal rules restrict any use of the information to criminally investigate or prosecute any alcohol or drug abuse patient.[facility] HospitalIn the event this information is protected by the Federal Confidentiality of Alcohol and Drug Abuse Patient Records regulations: The Federal rules restrict any use of the information to criminally investigate or prosecute any alcohol or drug abuse patient.[facility] HospitalIn the event this information is protected by the Federal Confidentiality of Alcohol and Drug Abuse Patient Records regulations: The Federal rules restrict any use of the information to criminally investigate or prosecute any alcohol or drug abuse patient.[facility] HospitalIn the event this information is protected by the Federal Confidentiality of Alcohol and Drug Abuse Patient Records regulations: The Federal rules restrict any use of the information to criminally investigate or prosecute any alcohol or drug abuse patient.[facility] HospitalIn the event this information is protected by the Federal Confidentiality of Alcohol and Drug Abuse Patient Records regulations: The Federal rules restrict any use of the information to criminally investigate or prosecute any alcohol or drug abuse patient.[facility] HospitalIn the event this information is protected by the Federal Confidentiality of Alcohol and Drug Abuse Patient Records regulations: The Federal rules restrict any use of the information to criminally investigate or prosecute any alcohol or drug abuse patient.[facility] HospitalIn the event this information is protected by the Federal Confidentiality of Alcohol and Drug Abuse Patient Records regulations: The Federal rules restrict any use of the information to criminally investigate or prosecute any alcohol or drug abuse patient.[facility] HospitalIn the event this information is protected by the Federal Confidentiality of Alcohol and Drug Abuse Patient Records regulations: The Federal rules restrict any use of the information to criminally investigate or prosecute any alcohol or drug abuse patient.[facility] HospitalIn the event this information is protected by the Federal Confidentiality of Alcohol and Drug Abuse Patient Records regulations: The Federal rules restrict any use of the information to criminally investigate or prosecute any alcohol or drug abuse patient.[facility] HospitalIn the event this information is protected by the Federal Confidentiality of Alcohol and Drug Abuse Patient Records regulations: The Federal rules restrict any use of the information to criminally investigate or prosecute any alcohol or drug abuse patient.[facility] HospitalIn the event this information is protected by the Federal Confidentiality of Alcohol and Drug Abuse Patient Records regulations: The Federal rules restrict any use of the information to criminally investigate or prosecute any alcohol or drug abuse patient.[facility] HospitalIn the event this information is protected by the Federal Confidentiality of Alcohol and Drug Abuse Patient Records regulations: The Federal rules restrict any use of the information to criminally investigate or prosecute any alcohol or drug abuse patient.[facility] HospitalIn the event this information is protected by the Federal Confidentiality of Alcohol and Drug Abuse Patient Records regulations: The Federal rules restrict any use of the information to criminally investigate or prosecute any alcohol or drug abuse patient.[facility] HospitalIn the event this information is protected by the Federal Confidentiality of Alcohol and Drug Abuse Patient Records regulations: The Federal rules restrict any use of the information to criminally investigate or prosecute any alcohol or drug abuse patient.[facility] HospitalIn the event this information is protected by the Federal Confidentiality of Alcohol and Drug Abuse Patient Records regulations: The Federal rules restrict any use of the information to criminally investigate or prosecute any alcohol or drug abuse patient.[facility] HospitalIn the event this information is protected by the Federal Confidentiality of Alcohol and Drug Abuse Patient Records regulations: The Federal rules restrict any use of the information to criminally investigate or prosecute any alcohol or drug abuse patient.[facility] Reason for Visit (unrecogniz ed section and content) Reason Onset Date Comments Refill Request 10/04/2021 Reason Onset Date Comments Refill Request 11/06/2021 Reason Onset Date Comments Refill Request 11/26/2021 Reason Onset Date Comments Refill Request 03/16/2022 Reason Comments Refill Request Reason Comments Physical Reason Comments Results Reason Onset Date Comments Refill Request 08/17/2022 Reason Onset Date Comments Refill Request 08/22/2022 Reason Onset Date Comments Refill Request 08/16/2022 Reason Onset Date Comments Refill Request 10/30/2022 Reason Comments Recheck Blood pressure Reason Onset Date Comments Refill Request 04/05/2023 Reason Comments Orders CPAP Reason Onset Date Comments Refill Request 05/04/2023 Reason Onset Date Comments Refill Request 05/10/2023 Reason Onset Date Comments Blood Pressure Check 10/21/2024 Care Teams (unrecognized sec tion and content) Information Systems Supervisor Relationship Specialty Start Date End Date Stevan Bridges MD [address] [place] [address] PCP - General Family Practice 03/29/15 Information Systems Supervisor Relationship Specialty Start Date End Date Stevan Bridges MD [address] [place] [address], [place] [address] PCP - General Family Practice 03/29/15 Information Systems Supervisor Relationship Specialty Start Date End Date Stevan Bridges MD [address] [place] [address], [place] [address] PCP - General Family Practice 03/29/15 Information Systems Supervisor Relationship Specialty Start Date End Date Stevan Bridges MD [address] [place] [address], [place] [address] PCP - General Family Practice 03/29/15 Information Systems Supervisor Relationship Specialty Start Date End Date Stevan Bridges MD [address] [place] [address], [place] [address] PCP - General Family Medicine 03/29/15 Information Systems Supervisor Relationship Specialty Start Date End Date Stevan Bridges MD [address] [place] [address], [place] [address] PCP - General Family Medicine 03/29/15 Information Systems Supervisor Relationship Specialty Start Date End Date Stevan Bridges MD [address] [place] [address], [place] [address] PCP - General Family Medicine 03/29/15 Information Systems Supervisor Relationship Specialty Start Date End Date Stevan Bridges MD [address] [place] [address], [place] [address] PCP - General Family Medicine 03/29/15 Information Systems Supervisor Relationship Specialty Start Date End Date Stevan Bridges MD [address] [place] [address], [place] [address] PCP - General Family Medicine 03/29/15 Information Systems Supervisor Relationship Specialty Start Date End Date Stevan Bridges MD [address] [place] [address] PCP - General Family Medicine 03/29/15 Information Systems Supervisor Relationship Specialty [place] [address] [place] [address] PCP - General Family Medicine 03/29/15 Information Systems Supervisor Relationship Specialty Start Date End Date Stevan Bridges MD [address] [place] [address] PCP - General Family Medicine 03/29/15 Information Systems Supervisor Relationship Specialty Start Date End Date Stevan Bridges MD [address] [place] [address] PCP - General Family Medicine 03/29/15 Information Systems Supervisor Relationship Specialty Start Date End Date Stevan Bridges MD [address] [place] [address] PCP - General Family Medicine 03/29/15 Information Systems Supervisor Relationship Specialty Start Date End Date Stevan Bridges MD [address] [place] [address] PCP - General Family Medicine 03/29/15 Information Systems Supervisor Relationship Specialty Start Date End Date Stevan Bridges MD [address] [place] [address] PCP - General Family Medicine 03/29/15 Information Systems Supervisor Relationship Specialty Start Date End Date Stevan Bridges MD [address] [place] [address] PCP - General Family Medicine 03/29/15 Information Systems Supervisor Relationship Specialty Start Date End Date Stevan Bridges MD [address] [place] [address] PCP - General Family Medicine 03/29/15 Information Systems Supervisor Relationship Specialty Start Date End Date Stevan Bridges MD [address] [place] [address] PCP - General Family Medicine 03/29/15 Information Systems Supervisor Relationship Specialty Start Date End Date Stevan Bridges MD [address] [place] [address] PCP - General Family Medicine 03/29/15 Information Systems Supervisor Relationship Specialty Start Date End Date Stevan Bridges MD [address] [place] [address] PCP - General Family Medicine 03/29/15 Information Systems Supervisor Relationship Specialty Start Date End Date Stevan Bridges MD [address] [place] [address] PCP - General Family Medicine 03/29/15 Information Systems Supervisor Relationship Specialty Start Date End Date Stevan Bridges MD [address] [place] [address] PCP - General Family Medicine 03/29/15 Information Systems Supervisor Relationship Specialty Start Date End Date Stevan Bridges MD [address] [place] [address] PCP - General Family Medicine 03/29/15 Information Systems Supervisor Relationship Specialty Start Date End Date Stevan Bridges MD [address] [place], [place] [address] PCP - General Family Medicine 03/29/15 Information Systems Supervisor Relationship Specialty Start Date End Date Stevan Bridges MD [address] [place] [address] PCP - General Family Medicine 09/06/24 Leticia Prasad PA-C [address] [place] [address] [facility] 05/08/24 10/31/24 Zoey Ramirez APRN.CNP [address] [place] [id number] [facility] 11/01/24 Leticia Prasad PA-C [address] [place] [address] [facility] 11/01/24 Team Status: Active Member Role/Relationship Status Dates Dr. Stevan Bridges MD Primary care physician Active Team Status: Inactive Member Role/Relationship Status Dates Dr. Stevan Bridges MD Primary care physician Active Start: February 28, 2025 End: February 28, 2025 Dr. Stevan Bridges MD Referring Provider Active Start: February 28, 2025 End: February 28, 2025 Monica Lombardi NP, R&D ENGINEER-C Attending physician Active Start: February 28, 2025 End: February 28, 2025 Goals (unrecognized section and content) Goals may be documented in a n alternate sectionGoals may be documented in an alternate section FOR RECORDS PERTAINING TO PATIENTS WHO ARE OR HAVE BEEN ENROLLED IN A CHEMICAL DEPENDENCY/SUBSTANCEABUSE PROGRAM, SOME INFORMATION MAY BE OMITTED. This clinical summary was aggregated from multiple sources. Caution should be exercised in using it in the provision of clinical care. This summary normalizes information from multiple sources, and as a consequence, information in this document may materially change the coding, format and clinical context of patient data. In addition, data may be omitted in some cases. CLINICAL DECISIONS SHOULD BE BASED ON THE PRIMARY CLINICAL RECORDS. [facility]. provides no warranty or guarantee of the accuracy or completeness of information in this document.
--- NOTE | 2025-03-18 08:52 | STRESSREP_ITS ---
Stress Test Report Exercise myocardial perfusion stress test. 49-year-old man with a history of coronary disease. Stress protocol: Resting EKG demonstrates sinus rhythm bradycardia rhythm with a rate of 48 bpm resting blood pressure is 112/72 mmHg. The patient exercised according to the regular Rj protocol for a total duration of 10-1/2 minutes attaining a maximum heart rate of 162 bpm which was 93% of maximum predicted heart rate; the maximum workload was 13.4 metabolic equivalents. At rest there were no ST or T wave changes noted to suggest ischemia and at peak exercise upsloping ST changes only were noted which did not meet the criteria for ischemia. No clinical angina was noted the test was terminated due to the target heart rate being achiev ed/fatigue. The peak blood pressure was 152/88 mmHg. Rate-pressure product was 21,100. Myocardial perfusion protocol. 14.2 mCi of technetium 99m sestamibi was injected at rest. The patient exercised according to regular Rj protocol for total duration of 10-1/2-minute and at peak exercise 43.9 mCi of technetium 99m sestamibi was injected stress images were obtained stress and rest images were reconstructed in comparing the short axis vertical long and horizontal long axis. Gated images were also obtained. Perfusion SPECT analysis: Review of the stress images demonstrate normal uptake of tracer noted in all areas of the myocardium. The resting images similarly demonstrate normal uptake of tracer noted in all areas of the myocardium. No areas of reversibility are noted to suggest ischemia no previous infarct was noted. Gated SPECT analysis: The gated ejection fraction is 61%. Conclusion: Normal exercise myocardial perfusion stress test at a high workload.
== END | disposition home or self-care (01) ==
LOC: CVS 06:44
PROVIDERS: PCP Family Medicine; Referring Provider Nurse Practitioner Gerontology; Visit Provider Nurse Practitioner Gerontology
DX: I25.10 Atherosclerotic heart disease of native coronary artery without angina pectoris (principal); Z95.5 Presence of coronary angioplasty implant and graft
CPT/HCPCS: 78452; 93017; A9500; A4216